=== PATIENT | female | born 1950 | race Caucasian/White ===

== ENCOUNTER 2021-06-23 15:29 | Inpatient (IN) | payer MEDICARE, BC ==
[~2021-06-23] VITALS: Ht 175.3 cm; Wt 104.6 kg
[2021-06-23] MEDS ORDERED: METHYL SALICYLATE/MENTHOL TOPICAL OINTMENT 57GM TUBE. TP PRN (16:30)
[2021-06-23] MEDS ORDERED: MAG HYDROX/AL HYDROX/SIMETH 30 ML ORAL.SUSP PO PRN (16:30)
[2021-06-23] MEDS ORDERED: MAGNESIUM HYDROXIDE 2,400 MG/30 ML ORAL.SUSP. PO PRN (16:30)
[2021-06-23] MEDS ORDERED: ACETAMINOPHEN 325 MG TABLET PO PRN (16:30)
[2021-06-23 16:37] VITALS: BP 98/58
[2021-06-23] MEDS ORDERED: APIX5TAB3 PO (16:54)
[2021-06-23] MEDS ORDERED: QUEtiapine 50 MG TABLET. PO PRN (17:00)
[2021-06-23] MEDS ORDERED: SODIUM CHLORIDE 0.65% NASAL SPRAY 45ML BOTTLE. NS PRN (17:00)
[2021-06-23] MEDS ORDERED: SENN8.6T99 PO (17:14)
[2021-06-23] MEDS ORDERED: ASPI-630 PO (17:14)
[2021-06-23] MEDS ORDERED: ARIP5TAB13 PO (17:14)
[2021-06-23] MEDS ORDERED: [UNRECOGNIZED DRUG - CODE] NS (17:14)
[2021-06-23] MEDS ORDERED: KETO5DRO72 EACHEYE (17:14)
[2021-06-23] MEDS ORDERED: LEVO25TA4 PO (17:14)
[2021-06-23] MEDS ORDERED: FLUT15.812 NS (17:14)
[2021-06-23] MEDS ORDERED: QUET50TA5 PO (17:14)
[2021-06-23] MEDS ORDERED: MECL-75 PO (17:14)
[2021-06-23] MEDS ORDERED: IPRA3AMP29 NEB (17:14)
[2021-06-23] MEDS ORDERED: POLY17PO52 PO (17:14)
[2021-06-23] MEDS ORDERED: METO-239 PO (17:14)
[2021-06-23] MEDS ORDERED: LIDO700A21 TP (17:14)
[2021-06-23] MEDS ORDERED: DIVA500T2 PO (17:14)
[2021-06-23] MEDS ORDERED: PANT40TA6 PO (17:14)
[2021-06-23] MEDS ORDERED: LACT10SO26 PO (17:14)
[2021-06-23] MEDS ORDERED: DULO60CA98 PO (17:14)
[2021-06-23] MEDS ORDERED: TRAZ-120 PO (17:14)
[2021-06-23] MEDS ORDERED: LORA10TA3 PO (17:14)
[2021-06-23] MEDS ORDERED: MECLIZINE 12.5 MG TABLET. PO PRN (17:45)
--- NOTE | 2021-06-23 18:06 | EKG ---
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
[2021-06-23] MEDS: APIXABAN 5 MG TABLET. PO SCH (20:35)
[2021-06-23] MEDS: traZODone 50 MG TABLET. PO SCH (20:35)
[2021-06-23] MEDS: DIVALPROEX SODIUM 250 MG TABLET.DR. PO SCH (20:35)
[2021-06-23] MEDS: LACTULOSE 20 GM/30 ML SOLUTION. PO SCH (20:35)
[2021-06-23] MEDS: PATCH REMOVAL. MC SCH (20:36)
[2021-06-23] MEDS: IPRATROPIUM/ALBUTEROL 20/100mcg/INH INHALER. INH SCH (20:37)
[2021-06-23 20:43] LABS: BASO # 0.1 x10^3/uL (0.0-0.2); BASO % 1 % (0-3); EOS # 0.3 x10^3/uL (0.0-0.7); EOS % 2 % (0-3); HEMATOCRIT 40.4 % (36.0-47.0); HEMOGLOBIN 13.8 g/dL (12.0-15.5); LYMPH # 3.6 x10^3/uL (1.0-4.8); LYMPH % 29 % (24-48); MEAN CORPUSCULAR HEMOGLOBIN 34 pg (25-35); MEAN CORPUSCULAR HGB CONC 34 g/dL (31-37); MEAN CORPUSCULAR VOLUME 99 fL (79-100); MONO # 0.9 x10^3/uL (0.0-1.1); MONO % 8 % (0-9); NEUT # 7.6 x10^3uL (1.8-7.7); NEUT % 61 % (31-73); PLATELET COUNT 319 x10^3/uL (140-400); RED BLOOD COUNT 4.08 x10^6/uL (3.50-5.40); RED CELL DISTRIBUTION WIDTH 14.7 % (11.5-14.5); WHITE BLOOD COUNT 12.5 x10^3/uL (4.0-11.0)
[2021-06-23 20:57] LABS: ALBUMIN/GLOBULIN RATIO 0.8 (1.0-1.7); ALK PHOS 102 U/L (46-116); ALT (SGPT) 14 U/L (14-59); ANION GAP 7 (6-14); AST (SGOT) 15 U/L (15-37); BLOOD UREA NITROGEN 33 mg/dL (7-20); BUN/CREATININE RATIO 47 (6-20); CALCIUM 8.7 mg/dL (8.5-10.1); CARBON DIOXIDE 29 mmol/L (21-32); CHLORIDE 103 mmol/L (98-107); CREATININE 0.7 mg/dL (0.6-1.0); GFR 82.5; GLUCOSE 167 mg/dL (70-99); MAGNESIUM 2.2 mg/dL (1.8-2.4); POTASSIUM 4.7 mmol/L (3.5-5.1); SODIUM 139 mmol/L (136-145); TOTAL BILIRUBIN 0.3 mg/dL (0.2-1.0); TOTAL PROTEIN 6.9 g/dL (6.4-8.2)
[2021-06-23] MEDS: KETOROLAC TROMETHAMINE 0.5% OPHTH SOLUTION BOTTLE. OU SCH (21:00)
[2021-06-23 21:09] LABS: VAL ACID 62 mcg/mL (50-100)
--- NOTE | 2021-06-23 21:54 | PDOC ---
Exam Note: Bharat Note: Please also refer to the separate dictated note~for this date of service dictated separately.~Patient seen individually. Discussed the patient with Nursing staff reviewed the chart.~Reviewed interim history and current functioning. Reviewed vital signs,~Labs/ Radiology~and current medications noted below. Continue current treatment with the changes noted in the dictated addendum note Assessment: Vital Signs/I&O: Vital Signs Date Time Temp Pulse Resp B/P (MAP) Pulse Ox O2 Delivery O2 Flow Rate FiO2 06/23/21 16:37 97.4 84 16 98/58 (71) 91 Room Air Labs: Laboratory Tests Test 06/23/21 20:30 White Blood Count 12.5 x10^3/uL (4.0-11.0) H Red Blood Count 4.08 x10^6/uL (3.50-5.40) Hemoglobin 13.8 g/dL (12.0-15.5) Hematocrit 40.4 % (36.0-47.0) Mean Corpuscular Volume 99 fL (79-100) Mean Corpuscular Hemoglobin 34 pg (25-35) Mean Corpuscular Hemoglobin Concent 34 g/dL (31-37) Red Cell Distribution Width 14.7 % (11.5-14.5) H Platelet Count 319 x10^3/uL (140-400) Neutrophils (%) (Auto) 61 % (31-73) Lymphocytes (%) (Auto) 29 % (24-48) Monocytes (%) (Auto) 8 % (0-9) Eosinophils (%) (Auto) 2 % (0-3) Basophils (%) (Auto) 1 % (0-3) Neutrophils # (Auto) 7.6 x10^3uL (1.8-7.7) Lymphocytes # (Auto) 3.6 x10^3/uL (1.0-4.8) Monocytes # (Auto) 0.9 x10^3/uL (0.0-1.1) Eosinophils # (Auto) 0.3 x10^3/uL (0.0-0.7) Basophils # (Auto) 0.1 x10^3/uL (0.0-0.2) D-Dimer (Carmen) 0.42 mg/L (0.00-0.50) Sodium Level 139 mmol/L (136-145) Potassium Level 4.7 mmol/L (3.5-5.1) Chloride Level 103 mmol/L (98-107) Carbon Dioxide Level 29 mmol/L (21-32) Anion Gap 7 (6-14) Blood Urea Nitrogen 33 mg/dL (7-20) H Creatinine 0.7 mg/dL (0.6-1.0) Estimated GFR (Cockcroft-Gault) 82.5 BUN/Creatinine Ratio 47 (6-20) H Glucose Level 167 mg/dL (70-99) H Calcium Level 8.7 mg/dL (8.5-10.1) Magnesium Level 2.2 mg/dL (1.8-2.4) Total Bilirubin 0.3 mg/dL (0.2-1.0) Aspartate Amino Transferase (AST) 15 U/L (15-37) Alanine Aminotransferase (ALT) 14 U/L (14-59) Alkaline Phosphatase 102 U/L (46-116) Total Protein 6.9 g/dL (6.4-8.2) Albumin 3.0 g/dL (3.4-5.0) L Albumin/Globulin Ratio 0.8 (1.0-1.7) L Valproic Acid Level 62 mcg/mL (50-100) Valproic Acid Last Dose Date 06/23/21 Valproic Acid Last Dose Time 0800 Current Medications: Meds: Current Medications Medications (Trade) Dose Ordered Sig/Anthony Route PRN Reason Start Time Stop Time Status Last Admin Dose Admin Apixaban (Eliquis) 5 mg BID PO 06/23/21 21:00 06/23/21 20:35 Albuterol/ Ipratropium (Combivent Respimat 20-100 Mcg) 1 puff RTQID INH 06/23/21 20:00 06/23/21 20:37 Trazodone HCl (Desyrel) 50 mg HS PO 06/23/21 21:00 06/23/21 20:35 Divalproex Sodium (Depakote) 1,000 mg BID PO 06/23/21 21:00 06/23/21 20:35 Lactulose (Lactulose) 30 gm BID PO 06/23/21 21:00 06/23/21 20:35 Miscellaneous (Lidoderm Patch Removal) 1 ea QHS 06/23/21 21:00 06/23/21 20:36 I have reviewed the current psychotropics carefully including drug interactions. Risk benefit ratio favors no change other than as noted in my dictated progress note. CORY MARAVILLA MD Jun 23, 2021 21:54
--- NOTE | 2021-06-23 22:55 | HP ---
ADMIT DATE: 06/23/2021 PSYCHIATRIC ADMISSION HISTORY/EVALUATION IDENTIFYING DATA: The patient is a 71-year-old female referred to us from [facility] after she was treated for her UTI and had been referred there from [facility] where she has resided for the past several months. She has been increasingly agitated, having visual hallucinations, marked insomnia, psychosis, anxiety, confused, refusing cares. She felt the hospital staff are trying to harm her. She failed outpatient psychiatric interventions resulting in this referral. CHIEF COMPLAINT: "I don't have bipolar disorder. I saw you many years ago. Were you at ." The patient is quite hyperverbal, anxious, quite adamant she does not have bipolar disorder. Unable to explain why she is on the Abilify. The patient does have a history of mood swings, even though she minimizes this, has some sleep and appetite changes, marked anxiety but denies suicidal or homicidal ideation. PAST PSYCHIATRIC HISTORY: As above. PAST MEDICAL HISTORY: Positive for astrocytoma of the brain, ischemic stroke, status post seizure disorder, status post pulmonary embolism, DVT, hypothyroidism, atrial fibrillation, chronic pain, on pain pump, diastolic heart failure, spondylosis, thoracic radiculopathy, pacemaker, history of brain tumor is noted. ACCU-CHEKS: None. CODE STATUS: Full code. ALLERGIES: TEGRETOL, LEXAPRO, PAXIL, DILANTIN, PRIMIDONE, ZOLOFT, ADHESIVE TAPE, ARIPIPRAZOLE, SOTALOL. DIET: Regular. ACTIVITY: Ambulates standby assist with walker. UA: On antibiotics for UTI, Keflex. CURRENT PSYCHOTROPICS: Cymbalta 90 mg a day, Seroquel 50 mg at bedtime p.r.n. Depakote delayed release 500 mg b.i.d., trazodone 50 mg at bedtime, Abilify 7.5 mg a day. Even though the ABILIFY IS LISTED AN ALLERGY, patient states the only side effect she had from the ABILIFY in the past was weight gain. FAMILY HISTORY: Noncontributory. SOCIAL HISTORY: The patient states she was living in an independent apartment until a few months back and then moved to the [facility]. No alcohol, drug abuse, physical, sexual or elder abuse history is noted. Not known to be a perpetrator. REACTION TO HOSPITALIZATION: The patient accepting of it. REVIEW OF SYSTEMS: Impaired ambulation with walker. No CV, , pulmonary, eye system symptoms on review. IMPRESSION: Probable bipolar 1 disorder, depressed versus mixed with psychotic features, history of major depressive disorder, anxiety disorder, unspecified. Rest as above. PLAN: Admit to Geropsychiatry unit at [facility]. I will see the patient daily individually from a psychiatric standpoint, medical followup, Dr. Goldstein/Dr. York. Continue current psychotropics. Observe baseline, adjust as clinically indicated. ESTIMATED LENGTH OF STAY: 10-12 days. DISPOSITION: Plan back to [facility] when stable. GISELLE/DARIAN DR: Simba TID: [id number]
[2021-06-24 05:43] VITALS: BP 94/61
[2021-06-24] MEDS: LEVOTHYROXINE 25 MCG TABLET. PO SCH (06:31)
[2021-06-24] MEDS: IPRATROPIUM/ALBUTEROL 20/100mcg/INH INHALER. INH SCH ×4 (08:00→20:44)
[2021-06-24] MEDS: LACTULOSE 20 GM/30 ML SOLUTION. PO SCH ×2 (09:00→20:44)
[2021-06-24] MEDS: SENNOSIDES 8.6 MG TABLET PO SCH (09:00)
[2021-06-24] MEDS ORDERED: FLU VACC QUAD 21-22 (6MOS+) PF 0.5 ML SYRINGE. VAX IM ONE (09:00)
[2021-06-24] MEDS: LIDOCAINE (700MG/PATCH) PATCH. TP SCH (09:00)
[2021-06-24] MEDS: METOPROLOL SUCC 24HR ER 25 MG TAB.ER.24H. PO SCH (09:00)
[2021-06-24] MEDS: POLYETHYLENE GLYCOL 3350 17 GM PACKET. PO SCH (09:00)
[2021-06-24] MEDS: ASPIRIN CHEWABLE 81 MG TABLET. PO SCH (09:01)
[2021-06-24] MEDS: ARIPiprazole 5 MG TABLET PO SCH (09:05)
[2021-06-24] MEDS: DULoxetine HCL 30 MG CAPSULE.DR PO SCH (09:06)
[2021-06-24] MEDS: APIXABAN 5 MG TABLET. PO SCH ×2 (09:07→20:45)
[2021-06-24] MEDS: PANTOPRAZOLE 40 MG TABLET. PO SCH (09:07)
[2021-06-24] MEDS: DIVALPROEX SODIUM 250 MG TABLET.DR. PO SCH ×2 (09:08→20:45)
[2021-06-24] MEDS: CETIRIZINE HCL 10 MG TABLET PO SCH (09:09)
[2021-06-24] MEDS: KETOROLAC TROMETHAMINE 0.5% OPHTH SOLUTION BOTTLE. OU SCH ×4 (09:09→20:44)
[2021-06-24] MEDS: FLUTICASONE 50MCG/NASAL SPRAY 16GM BOTTLE. NS SCH (09:10)
[2021-06-24 15:23] LABS: THYROID STIM HORMONE (TSH) 2.739 uIU/mL (0.358-3.740)
[2021-06-24 16:00] VITALS: BP 93/56
[2021-06-24 20:07] LABS: THYROXINE 6.2 ug/dL (4.5-12.0)
[2021-06-24] MEDS: PATCH REMOVAL. MC SCH (20:45)
[2021-06-24] MEDS: traZODone 50 MG TABLET. PO SCH (20:45)
--- NOTE | 2021-06-24 23:03 | PDOC ---
Exam Note: Bharat Note: This note covers elements not covered in my initial note. Subjective: The patient was seen individually in the evening of 06/24/2021 with Soraida QUARLES, discussed and reviewed the chart. The patient slept 7-1/2 hours previous night. She remains withdrawn to her room, refused her lactulose which was given for elevated ammonia level. She continues to deny she has been diagnosed with bipolar disorder. We will obtain past psychiatric records for clarification. She is compliant with medications. I met with her in her room. Review of Systems: Ambulation impaired with walker. No CV, , pulmonary, eye, ENT system symptoms on review. Mental Status Exam: The patient is reasonably oriented. Speech is coherent. Abstraction fair. Computation impaired. Language function intact. Attention span short. Mood and affect lability is improved. Laboratory Data: Reviewed. Impression: Bipolar 1 disorder mixed with psychotic features. Anxiety disorder unspecified. Impulse control disorder unspecified. Plan: Continue psychotropics unchanged. Check labs and ammonia level. Adjust further as clinically indicated. Assessment: Vital Signs/I&O: Vital Signs Date Time Temp Pulse Resp B/P (MAP) Pulse Ox O2 Delivery O2 Flow Rate FiO2 06/24/21 16:00 97.5 78 16 93/56 (68) 99 06/24/21 05:43 Nasal Cannula 2.0 I & O 06/23/21 06/23/21 06/24/21 15:00 23:00 07:00 Intake Total 610 ml Balance 610 ml Current Medications: Meds: Current Medications Medications (Trade) Dose Ordered Sig/Anthony Route PRN Reason Start Time Stop Time Status Last Admin Dose Admin Acetaminophen (Tylenol) 650 mg PRN Q6HRS PRN PO MILD PAIN / TEMP > 100.3'F 06/23/21 16:30 06/24/21 20:44 Multi-Ingredient Ointment (Analgesic [place]) 1 [place] PRN QID PRN TP MUSCLE PAIN 06/23/21 16:30 Al Hydroxide/Mg Hydroxide (Mylanta Plus Xs) 15 ml PRN AFTMEALHC PRN PO DYSPEPSIA 06/23/21 16:30 Magnesium Hydroxide (Milk Of Magnesia) 2,400 mg PRN QHS PRN PO CONSTIPATION 06/23/21 16:30 Apixaban (Eliquis) 5 mg BID PO 06/23/21 21:00 06/24/21 20:45 Aripiprazole (Abilify) 7.5 mg DAILY PO 06/24/21 09:00 06/24/21 09:05 Aspirin (Aspirin Chewable) 81 mg DAILY PO 06/24/21 09:00 06/24/21 09:01 Duloxetine HCl (Cymbalta) 90 mg DAILY PO 06/24/21 09:00 06/24/21 09:06 Albuterol/ Ipratropium (Combivent Respimat 20-100 Mcg) 1 puff RTQID INH 06/23/21 20:00 06/24/21 20:44 Levothyroxine Sodium (Synthroid) 25 mcg DAILY06 PO 06/24/21 06:00 06/24/21 06:31 Lidocaine (Lidoderm) 1 patch DAILY TP 06/24/21 09:00 06/24/21 09:00 Metoprolol Succinate (Toprol Xl) 25 mg DAILY PO 06/24/21 09:00 Pantoprazole Sodium (Protonix) 40 mg DAILY PO 06/24/21 09:00 06/24/21 09:07 Polyethylene Glycol (miraLAX) 17 gm DAILY PO 06/24/21 09:00 Quetiapine Fumarate (SEROquel) 50 mg PRN QHS PRN PO sleep 06/23/21 17:00 Sennosides (Senna) 8.6 mg DAILY PO 06/24/21 09:00 Sodium Chloride (Saline Mist Nasal) 1 r[place] PRN Q4HRS PRN NS nasal dryness 06/23/21 17:00 Trazodone HCl (Desyrel) 50 mg HS PO 06/23/21 21:00 06/24/21 20:45 Divalproex Sodium (Depakote) 1,000 mg BID PO 06/23/21 21:00 06/24/21 20:45 Fluticasone Propionate (Flonase) 2 spray DAILY NS 06/24/21 09:00 06/24/21 09:10 Ketorolac Tromethamine (Acular) 1 drop QID OU 06/23/21 21:00 06/24/21 20:44 Lactulose (Lactulose) 30 gm BID PO 06/23/21 21:00 06/24/21 20:44 Cetirizine HCl (ZyrTEC) 10 mg DAILY PO 06/24/21 09:00 06/24/21 09:09 Meclizine HCl (Antivert) 25 mg PRN Q4HRS PRN PO vertigo 06/23/21 17:45 Influenza Virus Vaccine Quadrival (Flulaval Quad Syringe) 0.5 ml ONCE ONCE VAX IM 06/24/21 09:00 06/24/21 09:01 DC 06/24/21 09:38 Miscellaneous (Lidoderm Patch Removal) 1 ea QHS MC 06/23/21 21:00 06/24/21 20:45 Current Medications Medications (Trade) Dose Ordered Sig/Anthony Route PRN Reason Start Time Stop Time Status Last Admin Dose Admin Aripiprazole (Abilify) 7.5 mg DAILY PO 06/24/21 09:00 06/24/21 09:05 Aspirin (Aspirin Chewable) 81 mg DAILY PO 06/24/21 09:00 06/24/21 09:01 Duloxetine HCl (Cymbalta) 90 mg DAILY PO 06/24/21 09:00 06/24/21 09:06 Levothyroxine Sodium (Synthroid) 25 mcg DAILY06 PO 06/24/21 06:00 06/24/21 06:31 Lidocaine (Lidoderm) 1 patch DAILY TP 06/24/21 09:00 06/24/21 09:00 Pantoprazole Sodium (Protonix) 40 mg DAILY PO 06/24/21 09:00 06/24/21 09:07 Fluticasone Propionate (Flonase) 2 spray DAILY NS 06/24/21 09:00 06/24/21 09:10 Cetirizine HCl (ZyrTEC) 10 mg DAILY PO 06/24/21 09:00 06/24/21 09:09 Influenza Virus Vaccine Quadrival (Flulaval Quad Syringe) 0.5 ml ONCE ONCE VAX IM 06/24/21 09:00 06/24/21 09:01 DC 06/24/21 09:38 I have reviewed the current psychotropics carefully including drug interactions. Risk benefit ratio favors no change other than as noted in my dictated progress note. Diagnosis: Problems: (1) Bipolar disorder, current episode mixed, severe, with psychotic features (2) Anxiety disorder, unspecified (3) Impulse control disorder, unspecified CORY MARAVILLA MD Jun 24, 2021 23:03
[2021-06-25 01:07] LABS: HEMOGLOBIN A1C 5.4 % (4.8-5.6)
--- NOTE | 2021-06-25 01:16 | CONS ---
DATE OF CONSULTATION: 06/24/2021 ATTENDING PHYSICIAN: Dr. Maravilla. We are asked to see this patient for medical consultation. HISTORY OF PRESENT ILLNESS: The patient is a pleasant 71-year-old female, admitted through the [facility] for worsening symptoms of bipolar disorder. She has been somewhat agitated, delusional, hallucinating, and having some psychosis. She is a little disoriented. She was refusing care at home. She was recently moved into an extended care facility. Her psychiatric history indicates that she had a hospitalization at [facility] as well over 40 years ago. PAST MEDICAL HISTORY: Significant for seizure disorder, hypothyroidism, paroxysmal atrial fibrillation, chronic anticoagulation, diastolic heart failure, and old cerebrovascular accident with minimal residual. CURRENT MEDICATIONS: Include albuterol, apixaban, Abilify, aspirin, Depakote, Cymbalta, fluticasone, ketorolac, lactulose, levothyroxine, Lidoderm patch, loratadine, meclizine, metoprolol, Protonix, MiraLax, Seroquel, senna, sodium, and trazodone. ALLERGIES: She has multiple allergies including ABILIFY, TEGRETOL, LEXAPRO, PAROXETINE, DILANTIN, PRIMIDONE, ZOLOFT AND BETAPACE, exact reaction is unclear. FAMILY HISTORY: Noncontributory. REVIEW OF SYSTEMS: Significant for the behavioral issues. She has had some impulse control. She was very alert and pleasant. All other systems reviewed and turned to be negative. SOCIAL HISTORY: Nonsmoker, nondrinker. 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 PHYSICAL EXAMINATION: GENERAL: When I saw her, this is a pleasant, middle-aged female. VITAL SIGNS: Her initial vital signs showed a blood pressure 94/61, pulse was 76 and regular. She was afebrile, oxygen saturation 91% on room air. HEENT: Head is without trauma. Pupils are reactive. Sclerae nonicteric. Oropharynx is clear. NECK: Supple, no bruits. LUNGS: Clear to auscultation. CARDIOVASCULAR: Regular heart tones. No gallops. ABDOMEN: Soft, obese, protuberant. No organomegaly. Bowel sounds are normoactive. EXTREMITIES: Show trace edema. NEUROLOGIC: Focally intact. Speech is fluent. Affect is normal. PERTINENT LABORATORY STUDIES: Her hemoglobin on admission was 13.8 grams per deciliter with a white count of 12,500. Electrolytes within normal range. Creatinine 0.7 mg/dL. Nonfasting blood sugar 167. ASSESSMENT: 1. A 71-year-old female with bipolar disorder. 2. Paroxysmal atrial fibrillation. 3. Chronic anticoagulation. 4. Hypothyroidism. 5. History remotely of congestive heart failure. 6. History of stroke with minimal residual. RECOMMENDATIONS: 1. I reviewed her medicines and should be continued the same dose. 2. The patient is stable from a medical standpoint at this time. Thank you again for asking me to see the patient for consultation. We should gladly follow along closely during her inpatient stay. JOHN DR: Farhad TID: [id number] CC: CORY MARAVILLA MD
[2021-06-25] MEDS: LEVOTHYROXINE 25 MCG TABLET. PO SCH (06:00)
[2021-06-25 06:44] VITALS: BP 161/91
[2021-06-25] MEDS: IPRATROPIUM/ALBUTEROL 20/100mcg/INH INHALER. INH SCH ×4 (08:00→21:29)
[2021-06-25] MEDS: LACTULOSE 20 GM/30 ML SOLUTION. PO SCH (08:42)
[2021-06-25] MEDS: FLUTICASONE 50MCG/NASAL SPRAY 16GM BOTTLE. NS SCH (08:42)
[2021-06-25] MEDS: PANTOPRAZOLE 40 MG TABLET. PO SCH (08:43)
[2021-06-25] MEDS: ASPIRIN CHEWABLE 81 MG TABLET. PO SCH (08:43)
[2021-06-25] MEDS: CETIRIZINE HCL 10 MG TABLET PO SCH (08:43)
[2021-06-25] MEDS: SENNOSIDES 8.6 MG TABLET PO SCH (08:43)
[2021-06-25] MEDS: DULoxetine HCL 30 MG CAPSULE.DR PO SCH (08:43)
[2021-06-25] MEDS: METOPROLOL SUCC 24HR ER 25 MG TAB.ER.24H. PO SCH (08:44)
[2021-06-25] MEDS: ARIPiprazole 5 MG TABLET PO SCH (08:44)
[2021-06-25] MEDS: APIXABAN 5 MG TABLET. PO SCH ×2 (08:44→21:28)
[2021-06-25] MEDS: LIDOCAINE (700MG/PATCH) PATCH. TP SCH (08:45)
[2021-06-25] MEDS: KETOROLAC TROMETHAMINE 0.5% OPHTH SOLUTION BOTTLE. OU SCH ×4 (08:45→21:28)
[2021-06-25] MEDS: POLYETHYLENE GLYCOL 3350 17 GM PACKET. PO SCH (08:46)
[2021-06-25] MEDS: DIVALPROEX SODIUM 250 MG TABLET.DR. PO SCH ×2 (08:49→21:28)
--- NOTE | 2021-06-25 12:16 | TX PLAN ---
Interdisciplinary Tx Plan Admission Information Jun 23, 2021 at 15:49 Legal Status (on Admission): Voluntary DPOA/Guardian Name: Johanny Gonzalez Contact Other Contact Name: IVELISSE Richter Other Contact Verified Code Status: Full Code Allergies: Coded Allergies: adhesive tape (Verified Allergy, Severe, 06/23/21) aripiprazole (Verified Allergy, Mild, 06/23/21) weight gain sotalol (Verified Allergy, Mild, Diarrhea, 06/23/21) carbamazepine (Verified Allergy, Unknown, 06/23/21) escitalopram (Verified Allergy, Unknown, 06/23/21) paroxetine (Verified Allergy, Unknown, 06/23/21) phenytoin (Verified Allergy, Unknown, 06/23/21) primidone (Verified Allergy, Unknown, 06/23/21) sertraline (Verified Allergy, Unknown, 06/23/21) Diagnoses Primary Diagnosis: (1) Bipolar disorder, current episode mixed, severe, with psychotic features (2) Anxiety disorder, unspecified (3) Impulse control disorder, unspecified Reasons for Admission: Delusions, Agitated, Sig. Change Sleep, Anxiety/Panic, Hallucinations, Suspicious/paranoid, Confusion/Disoriented Problem in Patient's Words: Per pt she has a history of chroinc pain related to a previous brain tumor. She has a pain pump that she wonders if she had previously been given the proper dose of pain medications as she has often felt like she was in a fog and didn't know where she was at. Pt and Victorina MENDOZA,have discussed concerns with ammonia levels. Additional Admission Comments: Per intake record, pt showing agitation, anxiety, confusion/disorientation, psychosis, delusions of staff trying to kill her, hallucinations of seeing bodies, and refusing cares. Problems Active Problems: Confusion, feels like in a fog, anxiety Inactive Problems: Pt is not currently describing hallucinations, delusions, or paranoia. However, these symptoms will continue to be assessed and monitored. Pt has not, yet, displayed agitation, but this, too, will be assessed and monitored. Pt Strengths/Limitations Ability for [place]: Poor Cognitive Functioning/Ability: Fair Communication Skills/Ability: Good Financial Resources: Good Insight/Judgement: Fair Intellectual Ability: Good Physical Health: Poor Social Skills: Fair Stability in Family: Fair Stability in School/Work: Good Verbal Skills: Good Discharge Criteria Discharge Criteria: No need for close observ., OP monitor medical prob, Adequate arrangements @DC, Adequate self-care, Verbal commit med comply, Improved behavior, Improved mood/thought Other Discharge Comments: None at this time. Preliminary Discharge Plan Preliminary DC Plan: Current Living Arrange. 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 Initial D/C Plan Pt plan is to return to [facility] once stable. Identified Discharge Needs: None known at this time. Currently Utilized Resources Currently Utilized Resources/P: PCP through [facility]-Dr. Sabino WILSON-Victorina Gonzalez Referrals Community Resources: None at this time. Identified Problems/Hx/Goals Objectives/Short-Term Goals Short Term Goals: Control abnormal behavior, Dec. Anxiety/Panic, Dec. Hallucination/Delus, Dec. Symp. Depression, Medication Stabilization, Monitor Med Effects, Prevent Deterioration, Promote Coping Skill Short Term Goals in Patient's: Would like to feel less confused and like I'm in a fog. Also, would like to be able to enjoy some of the things I used to do. Interventions/Frequency Staff Interventions/Frequency&: Psychiatry to assess pt three times per week for medication management. Nursing to assess behaviors, monitor medications, and complete 15 minute checks daily. Social work to see pt at least two times weekly to aid in return to placement. Activities to encourage pt to participate in group activities daily. 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 Pt states that she had, also, taught at [employer], [employer], and [employer]. Education: Pt graduated high school from [employer] and later graduated college from [employer] with her master's in education. She, also, had previously attended various colleges before graduating from . Community Follow-up PCP Community Provider/Family Inpu: Pt REJI/JOANA, Victorina, participated in treatment team and is aware of pt hospitalization. Victorina is available for further information as needed. 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
[2021-06-25] MEDS: CEPHALEXIN 250 MG CAPSULE PO SCH ×2 (14:19→21:28)
[2021-06-25 15:57] VITALS: BP 84/53
[2021-06-25] MEDS: PATCH REMOVAL. MC SCH (21:00)
[2021-06-25] MEDS: traZODone 50 MG TABLET. PO SCH (21:28)
--- NOTE | 2021-06-25 22:00 | PDOC ---
Exam Note: Bharat Note: Please also refer to the separate dictated note~for this date of service dictated separately.~Patient seen individually. Discussed the patient with Nursing staff reviewed the chart.~Reviewed interim history and current functioning. Reviewed vital signs,~Labs/ Radiology~and current medications noted below. Continue current treatment with the changes noted in the dictated addendum note Assessment: Vital Signs/I&O: Vital Signs Date Time Temp Pulse Resp B/P (MAP) Pulse Ox O2 Delivery O2 Flow Rate FiO2 06/25/21 15:57 98.0 80 20 84/53 (63) 100 2.0 06/25/21 06:44 Room Air I & O 06/24/21 06/24/21 06/25/21 15:00 23:00 07:00 Intake Total 720 ml 120 ml 120 ml Balance 720 ml 120 ml 120 ml Labs: Laboratory Tests Test 06/25/21 10:30 Ammonia 14 mcmol/L (11-34) Current Medications: Meds: Laboratory Tests Test 06/25/21 10:30 Ammonia 14 mcmol/L Current Medications Medications (Trade) Dose Ordered Sig/Anthony Route PRN Reason Start Time Stop Time Status Last Admin Dose Admin Acetaminophen (Tylenol) 650 mg PRN Q6HRS PRN PO MILD PAIN / TEMP > 100.3'F 06/23/21 16:30 06/24/21 20:44 Multi-Ingredient Ointment (Analgesic [place]) 1 raleigh PRN QID PRN TP MUSCLE PAIN 06/23/21 16:30 Al Hydroxide/Mg Hydroxide (Mylanta Plus Xs) 15 ml PRN AFTMEALHC PRN PO DYSPEPSIA 06/23/21 16:30 Magnesium Hydroxide (Milk Of Magnesia) 2,400 mg PRN QHS PRN PO CONSTIPATION 06/23/21 16:30 Apixaban (Eliquis) 5 mg BID PO 06/23/21 21:00 06/25/21 21:28 Aripiprazole (Abilify) 7.5 mg DAILY PO 06/24/21 09:00 06/25/21 08:44 Aspirin (Aspirin Chewable) 81 mg DAILY PO 06/24/21 09:00 06/25/21 08:43 Duloxetine HCl (Cymbalta) 90 mg DAILY PO 06/24/21 09:00 06/25/21 08:43 Albuterol/ Ipratropium (Combivent Respimat 20-100 Mcg) 1 puff RTQID INH 06/23/21 20:00 06/25/21 21:29 Levothyroxine Sodium (Synthroid) 25 mcg DAILY06 PO 06/24/21 06:00 06/25/21 06:00 Lidocaine (Lidoderm) 1 patch DAILY TP 06/24/21 09:00 06/25/21 08:45 Metoprolol Succinate (Toprol Xl) 25 mg DAILY PO 06/24/21 09:00 06/25/21 08:44 Pantoprazole Sodium (Protonix) 40 mg DAILY PO 06/24/21 09:00 06/25/21 08:43 Polyethylene Glycol (miraLAX) 17 gm DAILY PO 06/24/21 09:00 Quetiapine Fumarate (SEROquel) 50 mg PRN QHS PRN PO sleep 06/23/21 17:00 Sennosides (Senna) 8.6 mg DAILY PO 06/24/21 09:00 06/25/21 08:43 Sodium Chloride (Saline Mist Nasal) 1 raleigh PRN Q4HRS PRN NS nasal dryness 06/23/21 17:00 Trazodone HCl (Desyrel) 50 mg HS PO 06/23/21 21:00 06/25/21 21:28 Divalproex Sodium (Depakote) 1,000 mg BID PO 06/23/21 21:00 06/25/21 21:28 Fluticasone Propionate (Flonase) 2 spray DAILY NS 06/24/21 09:00 06/25/21 08:42 Ketorolac Tromethamine (Acular) 1 drop QID OU 06/23/21 21:00 06/25/21 21:28 Lactulose (Lactulose) 30 gm BID PO 06/23/21 21:00 06/25/21 11:41 DC 06/25/21 08:42 Cetirizine HCl (ZyrTEC) 10 mg DAILY PO 06/24/21 09:00 06/25/21 08:43 Meclizine HCl (Antivert) 25 mg PRN Q4HRS PRN PO vertigo 06/23/21 17:45 Influenza Virus Vaccine Quadrival (Flulaval Quad Syringe) 0.5 ml ONCE ONCE VAX IM 06/24/21 09:00 06/24/21 09:01 DC 06/24/21 09:38 Miscellaneous (Lidoderm Patch Removal) 1 ea QHS 06/23/21 21:00 06/25/21 21:00 Cephalexin HCl (Keflex) 500 mg TID PO 06/25/21 14:00 06/30/21 10:00 06/25/21 21:28 Current Medications Medications (Trade) Dose Ordered Sig/Anthony Route PRN Reason Start Time Stop Time Status Last Admin Dose Admin Cephalexin HCl (Keflex) 500 mg TID PO 06/25/21 14:00 06/30/21 10:00 06/25/21 21:28 I have reviewed the current psychotropics carefully including drug interactions. Risk benefit ratio favors no change other than as noted in my dictated progress note. Diagnosis: Problems: (1) Impulse control disorder, unspecified (2) Anxiety disorder, unspecified (3) Bipolar disorder, current episode mixed, severe, with psychotic features CORY MARAVILLA MD Jun 25, 2021 22:00
[2021-06-26 06:00] VITALS: BP 94/63
[2021-06-26] MEDS: LEVOTHYROXINE 25 MCG TABLET. PO SCH (06:00)
[2021-06-26] MEDS: IPRATROPIUM/ALBUTEROL 20/100mcg/INH INHALER. INH SCH ×5 (08:00→20:24)
[2021-06-26] MEDS: FLUTICASONE 50MCG/NASAL SPRAY 16GM BOTTLE. NS SCH (08:18)
[2021-06-26] MEDS: LIDOCAINE (700MG/PATCH) PATCH. TP SCH (08:18)
[2021-06-26] MEDS: KETOROLAC TROMETHAMINE 0.5% OPHTH SOLUTION BOTTLE. OU SCH ×4 (08:18→20:25)
[2021-06-26] MEDS: DULoxetine HCL 30 MG CAPSULE.DR PO SCH (08:19)
[2021-06-26] MEDS: SENNOSIDES 8.6 MG TABLET PO SCH (08:19)
[2021-06-26] MEDS: ARIPiprazole 5 MG TABLET PO SCH (08:19)
[2021-06-26] MEDS: CETIRIZINE HCL 10 MG TABLET PO SCH (08:20)
[2021-06-26] MEDS: ASPIRIN CHEWABLE 81 MG TABLET. PO SCH (08:20)
[2021-06-26] MEDS: METOPROLOL SUCC 24HR ER 25 MG TAB.ER.24H. PO SCH (08:20)
[2021-06-26] MEDS: PANTOPRAZOLE 40 MG TABLET. PO SCH (08:20)
[2021-06-26] MEDS: CEPHALEXIN 250 MG CAPSULE PO SCH ×3 (08:20→20:26)
[2021-06-26] MEDS: DIVALPROEX SODIUM 250 MG TABLET.DR. PO SCH ×2 (08:21→20:26)
[2021-06-26] MEDS: POLYETHYLENE GLYCOL 3350 17 GM PACKET. PO SCH (08:21)
[2021-06-26] MEDS: APIXABAN 5 MG TABLET. PO SCH ×2 (08:21→20:25)
[2021-06-26 15:36] VITALS: BP 90/62
[2021-06-26] MEDS: traZODone 50 MG TABLET. PO SCH (20:25)
[2021-06-26] MEDS: PATCH REMOVAL. MC SCH (20:27)
--- NOTE | 2021-06-27 05:18 | PN ---
DATE: 06/25/2021 PSYCHIATRIC PROGRESS NOTE This is a late entry, date of service 06/25 covers elements not covered in my initial note of 06/25. I met with the patient individually in her room in the evening at some length and had treatment team meeting with entire team in the morning. Per Amita RN, appetite 100% sleeping 6 hours. Sri, aids social worker give a detailed history. HISTORY OF PRESENT ILLNESS: She has been followed by Dr. Reid, Psychiatry in the past with a diagnosis of major depressive disorder, but no established diagnosis of bipolar disorder. Reportedly, she gets depressed and gets suicidal occasionally, and had been quite psychotic recently with a history of hallucinations of being raped and calling the police. She does have chronic pain 5 on a scale of 0-10 in her neck and arm and has a pain pump. REVIEW OF SYSTEMS: Ambulation impaired with walker. Chronic pain. No CV, , pulmonary, eye system symptoms on review. MENTAL STATUS EXAM: Oriented reasonably. Speech is coherent. Abstraction fair. Computation impaired. Language function intact. Mood and affect, lability is improved. Still remains depressed. At the treatment team meeting, the patient's [id number] Victorina attended and gave a very comprehensive history. IMPRESSION: Major depressive disorder, recurrent. Anxiety disorder, unspecified. Rest unchanged from admission. PLAN: Continue current psychotropics. Observe baseline. Maintain Cymbalta 90 mg a day, Depakote for seizure prophylaxis, delayed release 500 mg b.i.d., trazodone 50 mg at bedtime, Abilify 7.5 mg a day. GISELLE DR: Simba TID: [id number]
[2021-06-27] MEDS: LEVOTHYROXINE 25 MCG TABLET. PO SCH (05:47)
[2021-06-27 06:27] VITALS: BP 93/61
[2021-06-27] MEDS: IPRATROPIUM/ALBUTEROL 20/100mcg/INH INHALER. INH SCH ×4 (08:00→20:00)
--- NOTE | 2021-06-27 08:45 | PDOC ---
Exam Note: Bharat Note: Late entry for 06/26/2021. Please also refer to the separate dictated note~for this date of service dictated separately.~Patient seen individually. Discussed the patient with Nursing staff reviewed the chart.~Reviewed interim history and current functioning. Reviewed vital signs,~Labs/ Radiology~and current medic ations noted below. Continue current treatment with the changes noted in the dictated addendum note Assessment: Vital Signs/I&O: Vital Signs Date Time Temp Pulse Resp B/P (MAP) Pulse Ox O2 Delivery O2 Flow Rate FiO2 06/27/21 06:27 97.8 74 18 93/61 (72) 94 2.0 06/25/21 06:44 Room Air I & O 06/26/21 06/26/21 06/27/21 15:00 23:00 07:00 Intake Total 720 ml 610 ml Balance 720 ml 610 ml Current Medications: I have reviewed the current psychotropics carefully including drug interactions. Risk benefit ratio favors no change other than as noted in my dictated progress note. Diagnosis: Problems: (1) Impulse control disorder, unspecified (2) Anxiety disorder, unspecified (3) Bipolar disorder, current episode mixed, severe, with psychotic features CORY MARAVILLA MD Jun 27, 2021 08:45
[2021-06-27] MEDS: POLYETHYLENE GLYCOL 3350 17 GM PACKET. PO SCH (09:00)
[2021-06-27] MEDS: METOPROLOL SUCC 24HR ER 25 MG TAB.ER.24H. PO SCH (09:00)
[2021-06-27] MEDS: PANTOPRAZOLE 40 MG TABLET. PO SCH (09:13)
[2021-06-27] MEDS: DULoxetine HCL 30 MG CAPSULE.DR PO SCH (09:13)
[2021-06-27] MEDS: APIXABAN 5 MG TABLET. PO SCH ×2 (09:13→20:59)
[2021-06-27] MEDS: CETIRIZINE HCL 10 MG TABLET PO SCH (09:13)
[2021-06-27] MEDS: DIVALPROEX SODIUM 250 MG TABLET.DR. PO SCH ×2 (09:14→20:59)
[2021-06-27] MEDS: CEPHALEXIN 250 MG CAPSULE PO SCH ×3 (09:14→20:59)
[2021-06-27] MEDS: ASPIRIN CHEWABLE 81 MG TABLET. PO SCH (09:14)
[2021-06-27] MEDS: ARIPiprazole 5 MG TABLET PO SCH (09:14)
[2021-06-27] MEDS: SENNOSIDES 8.6 MG TABLET PO SCH (09:14)
[2021-06-27] MEDS: KETOROLAC TROMETHAMINE 0.5% OPHTH SOLUTION BOTTLE. OU SCH ×4 (09:16→20:59)
[2021-06-27] MEDS: FLUTICASONE 50MCG/NASAL SPRAY 16GM BOTTLE. NS SCH (09:16)
[2021-06-27] MEDS: LIDOCAINE (700MG/PATCH) PATCH. TP SCH (09:17)
[2021-06-27 16:00] VITALS: BP 104/64
[2021-06-27] MEDS: PATCH REMOVAL. MC SCH (20:01)
[2021-06-27] MEDS: traZODone 50 MG TABLET. PO SCH (20:58)
--- NOTE | 2021-06-27 21:28 | PDOC ---
Exam Note: Bharat Note: Please also refer to the separate dictated note~for this date of service dictated separately.~Patient seen individually. Discussed the patient with Nursing staff reviewed the chart.~Reviewed interim history and current functioning. Reviewed vital signs,~Labs/ Radiology~and current medications noted below. Continue current treatment with the changes noted in the dictated addendum note Assessment: Vital Signs/I&O: Vital Signs Date Time Temp Pulse Resp B/P (MAP) Pulse Ox O2 Delivery O2 Flow Rate FiO2 06/27/21 16:00 97.8 81 104/64 (77) 97 Room Air 06/27/21 06:27 18 2.0 I & O 06/26/21 06/26/21 06/27/21 15:00 23:00 07:00 Intake Total 720 ml 610 ml Balance 720 ml 610 ml Current Medications: Meds: Current Medications Medications (Trade) Dose Ordered Sig/Anthony Route PRN Reason Start Time Stop Time Status Last Admin Dose Admin Acetaminophen (Tylenol) 650 mg PRN Q6HRS PRN PO MILD PAIN / TEMP > 100.3'F 06/23/21 16:30 06/24/21 20:44 Multi-Ingredient Ointment (Analgesic [place]) 1 [place] PRN QID PRN TP MUSCLE PAIN 06/23/21 16:30 Al Hydroxide/Mg Hydroxide (Mylanta Plus Xs) 15 ml PRN AFTMEALHC PRN PO DYSPEPSIA 06/23/21 16:30 Magnesium Hydroxide (Milk Of Magnesia) 2,400 mg PRN QHS PRN PO CONSTIPATION 06/23/21 16:30 Apixaban (Eliquis) 5 mg BID PO 06/23/21 21:00 06/27/21 20:59 Aripiprazole (Abilify) 7.5 mg DAILY PO 06/24/21 09:00 06/27/21 09:14 Aspirin (Aspirin Chewable) 81 mg DAILY PO 06/24/21 09:00 06/27/21 09:14 Duloxetine HCl (Cymbalta) 90 mg DAILY PO 06/24/21 09:00 06/27/21 09:13 Albuterol/ Ipratropium (Combivent Respimat 20-100 Mcg) 1 puff RTQID INH 06/23/21 20:00 06/25/21 21:29 Levothyroxine Sodium (Synthroid) 25 mcg DAILY06 PO 06/24/21 06:00 06/27/21 05:47 Lidocaine (Lidoderm) 1 patch DAILY TP 06/24/21 09:00 06/27/21 09:17 Metoprolol Succinate (Toprol Xl) 25 mg DAILY PO 06/24/21 09:00 06/25/21 08:44 Pantoprazole Sodium (Protonix) 40 mg DAILY PO 06/24/21 09:00 06/27/21 09:13 Polyethylene Glycol (miraLAX) 17 gm DAILY PO 06/24/21 09:00 Quetiapine Fumarate (SEROquel) 50 mg PRN QHS PRN PO sleep 06/23/21 17:00 Sennosides (Senna) 8.6 mg DAILY PO 06/24/21 09:00 06/27/21 09:14 Sodium Chloride (Saline Mist Nasal) 1 [place] PRN Q4HRS PRN NS nasal dryness 06/23/21 17:00 Trazodone HCl (Desyrel) 50 mg HS PO 06/23/21 21:00 06/27/21 20:58 Divalproex Sodium (Depakote) 1,000 mg BID PO 06/23/21 21:00 06/27/21 20:59 Fluticasone Propionate (Flonase) 2 spray DAILY NS 06/24/21 09:00 06/27/21 09:16 Ketorolac Tromethamine (Acular) 1 drop QID OU 06/23/21 21:00 06/27/21 20:59 Lactulose (Lactulose) 30 gm BID PO 06/23/21 21:00 06/25/21 11:41 DC 06/25/21 08:42 Cetirizine HCl (ZyrTEC) 10 mg DAILY PO 06/24/21 09:00 06/27/21 09:13 Meclizine HCl (Antivert) 25 mg PRN Q4HRS PRN PO vertigo 06/23/21 17:45 Influenza Virus Vaccine Quadrival (Flulaval Quad [id number] Syringe) 0.5 ml ONCE ONCE VAX IM 06/24/21 09:00 06/24/21 09:01 DC 06/24/21 09:38 Miscellaneous (Lidoderm Patch Removal) 1 ea QHS MC 06/23/21 21:00 10/16/21 20:01 Cephalexin HCl (Keflex) 500 mg TID PO 06/25/21 14:00 06/30/21 10:00 06/27/21 20:59 I have reviewed the current psychotropics carefully including drug interactions. Risk benefit ratio favors no change other than as noted in my dictated progress note. Diagnosis: Problems: (1) Impulse control disorder, unspecified (2) Anxiety disorder, unspecified (3) Bipolar disorder, current episode mixed, severe, with psychotic features CORY MARAVILLA MD Jun 27, 2021 21:28
--- NOTE | 2021-06-27 21:43 | PN ---
DATE: 06/26/2021 PSYCHIATRIC PROGRESS NOTE This late entry 06/26/2021 covers elements not covered in the initial note. Discussed with WILLAM Levi SUBJECTIVE: The patient slept 5 hours previous night. She spends much time in her room, reading a book. No active hallucinations noted. I have reviewed records from Dr. Maddox, outpatient psychiatrist with a diagnosis of major depressive disorder and I discussed this with the patient at some length. REVIEW OF SYSTEMS: Ambulation impaired with walker. No CV, , pulmonary, eye system symptoms on review. MENTAL STATUS EXAMINATION: Oriented reasonably. Speech is coherent, has some latency. Abstraction fair. Computation impaired. Language function intact. Mood and affect somewhat anxious, depressed. No suicidal ideation. LABORATORY DATA: Reviewed. IMPRESSION: Major depressive disorder with history of psychotic features; anxiety disorder, unspecified urinary tract infection. PLAN: Continue current psychotropics including Cymbalta, Seroquel, Depakote and Abilify. The Depakote is for her seizure disorder. We will adjust further as clinically indicated. ALVIN DR: Simba TID: [id number]
[2021-06-28] MEDS: LEVOTHYROXINE 25 MCG TABLET. PO SCH (05:09)
[2021-06-28 06:14] VITALS: BP 96/63
[2021-06-28] MEDS: IPRATROPIUM/ALBUTEROL 20/100mcg/INH INHALER. INH SCH ×4 (08:57→21:18)
[2021-06-28] MEDS: LIDOCAINE (700MG/PATCH) PATCH. TP SCH (08:58)
[2021-06-28] MEDS: KETOROLAC TROMETHAMINE 0.5% OPHTH SOLUTION BOTTLE. OU SCH ×4 (08:58→21:18)
[2021-06-28] MEDS: FLUTICASONE 50MCG/NASAL SPRAY 16GM BOTTLE. NS SCH (08:59)
[2021-06-28] MEDS: APIXABAN 5 MG TABLET. PO SCH ×2 (09:00→21:19)
[2021-06-28] MEDS: DULoxetine HCL 30 MG CAPSULE.DR PO SCH (09:00)
[2021-06-28] MEDS: SENNOSIDES 8.6 MG TABLET PO SCH (09:00)
[2021-06-28] MEDS: POLYETHYLENE GLYCOL 3350 17 GM PACKET. PO SCH (09:00)
[2021-06-28] MEDS: METOPROLOL SUCC 24HR ER 25 MG TAB.ER.24H. PO SCH (09:00)
[2021-06-28] MEDS: CETIRIZINE HCL 10 MG TABLET PO SCH (09:01)
[2021-06-28] MEDS: PANTOPRAZOLE 40 MG TABLET. PO SCH (09:01)
[2021-06-28] MEDS: ASPIRIN CHEWABLE 81 MG TABLET. PO SCH (09:02)
[2021-06-28] MEDS: ARIPiprazole 5 MG TABLET PO SCH (09:02)
[2021-06-28] MEDS: DIVALPROEX SODIUM 250 MG TABLET.DR. PO SCH ×2 (09:02→21:00)
[2021-06-28] MEDS: CEPHALEXIN 250 MG CAPSULE PO SCH ×3 (09:02→21:19)
--- NOTE | 2021-06-28 11:36 | PN ---
DATE: 06/27/2021 PSYCHIATRIC PROGRESS NOTE This late entry of 06/27 covers elements not covered in my initial note. SUBJECTIVE: I met with the patient in her room in the evening. Per WILLAM Mcgraw, she slept 7 hours previous night. She has done well during the day. No hallucinations noted. Alert, oriented x 4. Reading a book in her room. I met with her in her room. REVIEW OF SYSTEMS: Ambulation impaired with walker. No CV, , pulmonary, eye, ENT system symptoms on review. Reliability fair. MENTAL STATUS EXAMINATION: Oriented reasonably. Speech coherent. Abstraction fair. Computation impaired. Language function intact. Mood and affect is improved. I have reviewed fairly extensive records from Dr. Reid, her outpatient psychiatrist with a diagnosis of major depressive disorder. No evidence of bipolar disorder. IMPRESSION: Major depressive disorder, recurrent, in partial remission; anxiety disorder, unspecified. Rest unchanged. PLAN: Continue current psychotropics mentioned in my initial note including Cymbalta, Depakote, trazodone, Abilify. Adjust further as clinically indicated. ERNIE DR: Simba TID: [id number]
[2021-06-28 15:38] VITALS: BP 92/60
[2021-06-28] MEDS: PATCH REMOVAL. MC SCH (20:28)
[2021-06-28] MEDS: traZODone 50 MG TABLET. PO SCH (21:00)
--- NOTE | 2021-06-28 21:33 | PDOC ---
Exam Note: Bharat Note: Please also refer to the separate dictated note~for this date of service dictated separately.~Patient seen individually. Discussed the patient with Nursing staff reviewed the chart.~Reviewed interim history and current functioning. Reviewed vital signs,~Labs/ Radiology~and current medications noted below. Continue current treatment with the changes noted in the dictated addendum note Assessment: Vital Signs/I&O: Vital Signs Date Time Temp Pulse Resp B/P (MAP) Pulse Ox O2 Delivery O2 Flow Rate FiO2 06/28/21 15:38 97.9 88 20 92/60 (71) 99 Room Air 06/28/21 06:14 2.0 I & O 06/27/21 06/27/21 06/28/21 15:00 23:00 07:00 Intake Total 720 ml 600 ml Balance 720 ml 600 ml Current Medications: Meds: Current Medications Medications (Trade) Dose Ordered Sig/Anthony Route PRN Reason Start Time Stop Time Status Last Admin Dose Admin Acetaminophen (Tylenol) 650 mg PRN Q6HRS PRN PO MILD PAIN / TEMP > 100.3'F 06/23/21 16:30 06/24/21 20:44 Multi-Ingredient Ointment (Analgesic [place]) 1 [place] PRN QID PRN TP MUSCLE PAIN 06/23/21 16:30 Al Hydroxide/Mg Hydroxide (Mylanta Plus Xs) 15 ml PRN AFTMEALHC PRN PO DYSPEPSIA 06/23/21 16:30 Magnesium Hydroxide (Milk Of Magnesia) 2,400 mg PRN QHS PRN PO CONSTIPATION 06/23/21 16:30 Apixaban (Eliquis) 5 mg BID PO 06/23/21 21:00 06/28/21 21:19 Aripiprazole (Abilify) 7.5 mg DAILY PO 06/24/21 09:00 06/28/21 09:02 Aspirin (Aspirin Chewable) 81 mg DAILY PO 06/24/21 09:00 06/28/21 09:02 Duloxetine HCl (Cymbalta) 90 mg DAILY PO 06/24/21 09:00 06/28/21 09:00 Albuterol/ Ipratropium (Combivent Respimat 20-100 Mcg) 1 puff RTQID INH 06/23/21 20:00 06/28/21 21:18 Levothyroxine Sodium (Synthroid) 25 mcg DAILY06 PO 06/24/21 06:00 06/28/21 05:09 Lidocaine (Lidoderm) 1 patch DAILY TP 06/24/21 09:00 06/28/21 08:58 Metoprolol Succinate (Toprol Xl) 25 mg DAILY PO 06/24/21 09:00 06/25/21 08:44 Pantoprazole Sodium (Protonix) 40 mg DAILY PO 06/24/21 09:00 06/28/21 09:01 Polyethylene Glycol (miraLAX) 17 gm DAILY PO 06/24/21 09:00 Quetiapine Fumarate (SEROquel) 50 mg PRN QHS PRN PO sleep 06/23/21 17:00 Sennosides (Senna) 8.6 mg DAILY PO 06/24/21 09:00 06/28/21 09:00 Sodium Chloride (Saline Mist Nasal) 1 [place] PRN Q4HRS PRN NS nasal dryness 06/23/21 17:00 Trazodone HCl (Desyrel) 50 mg HS PO 06/23/21 21:00 06/28/21 21:00 Divalproex Sodium (Depakote) 1,000 mg BID PO 06/23/21 21:00 06/28/21 21:00 Fluticasone Propionate (Flonase) 2 spray DAILY NS 06/24/21 09:00 06/28/21 08:59 Ketorolac Tromethamine (Acular) 1 drop QID OU 06/23/21 21:00 06/28/21 21:18 Lactulose (Lactulose) 30 gm BID PO 06/23/21 21:00 06/25/21 11:41 DC 06/25/21 08:42 Cetirizine HCl (ZyrTEC) 10 mg DAILY PO 06/24/21 09:00 06/28/21 09:01 Meclizine HCl (Antivert) 25 mg PRN Q4HRS PRN PO vertigo 06/23/21 17:45 Influenza Virus Vaccine Quadrival (Flulaval Quad [id number] Syringe) 0.5 ml ONCE ONCE VAX IM 06/24/21 09:00 06/24/21 09:01 DC 06/24/21 09:38 Miscellaneous (Lidoderm Patch Removal) 1 ea QHS MC 06/23/21 21:00 10/17/21 20:28 Cephalexin HCl (Keflex) 500 mg TID PO 06/25/21 14:00 06/30/21 10:00 06/28/21 21:19 I have reviewed the current psychotropics carefully including drug interactions. Risk benefit ratio favors no change other than as noted in my dictated progress note. Diagnosis: Problems: (1) Major depressive disorder in partial remission (2) Impulse control disorder, unspecified (3) Anxiety disorder, unspecified CORY MARAVILLA MD Jun 28, 2021 21:33
[2021-06-29] MEDS: LEVOTHYROXINE 25 MCG TABLET. PO SCH (05:07)
[2021-06-29 05:58] VITALS: BP 111/66
[2021-06-29] MEDS: IPRATROPIUM/ALBUTEROL 20/100mcg/INH INHALER. INH SCH ×4 (08:00→20:20)
[2021-06-29] MEDS: SENNOSIDES 8.6 MG TABLET PO SCH (08:39)
[2021-06-29] MEDS: ARIPiprazole 5 MG TABLET PO SCH (08:40)
[2021-06-29] MEDS: PANTOPRAZOLE 40 MG TABLET. PO SCH (08:40)
[2021-06-29] MEDS: METOPROLOL SUCC 24HR ER 25 MG TAB.ER.24H. PO SCH (08:40)
[2021-06-29] MEDS: DIVALPROEX SODIUM 250 MG TABLET.DR. PO SCH ×2 (08:40→20:19)
[2021-06-29] MEDS: ASPIRIN CHEWABLE 81 MG TABLET. PO SCH (08:40)
[2021-06-29] MEDS: APIXABAN 5 MG TABLET. PO SCH ×2 (08:40→20:19)
[2021-06-29] MEDS: DULoxetine HCL 30 MG CAPSULE.DR PO SCH (08:40)
[2021-06-29] MEDS: CEPHALEXIN 250 MG CAPSULE PO SCH ×3 (08:40→20:18)
[2021-06-29] MEDS: CETIRIZINE HCL 10 MG TABLET PO SCH (08:40)
[2021-06-29] MEDS: LIDOCAINE (700MG/PATCH) PATCH. TP SCH (08:41)
[2021-06-29] MEDS: KETOROLAC TROMETHAMINE 0.5% OPHTH SOLUTION BOTTLE. OU SCH ×4 (08:41→20:18)
[2021-06-29] MEDS: FLUTICASONE 50MCG/NASAL SPRAY 16GM BOTTLE. NS SCH (08:42)
[2021-06-29] MEDS: POLYETHYLENE GLYCOL 3350 17 GM PACKET. PO SCH (08:45)
[2021-06-29 15:45] VITALS: BP 124/82
[2021-06-29] MEDS: PATCH REMOVAL. MC SCH ×2 (20:19→21:00)
[2021-06-29] MEDS: traZODone 50 MG TABLET. PO SCH (20:19)
--- NOTE | 2021-06-29 21:32 | PDOC ---
Exam Note: Bharat Note: Please also refer to the separate dictated note~for this date of service dictated separately.~Patient seen individually. Discussed the patient with Nursing staff reviewed the chart.~Reviewed interim history and current functioning. Reviewed vital signs,~Labs/ Radiology~and current medications noted below. Continue current treatment with the changes noted in the dictated addendum note Assessment: Vital Signs/I&O: Vital Signs Date Time Temp Pulse Resp B/P (MAP) Pulse Ox O2 Delivery O2 Flow Rate FiO2 06/29/21 15:45 97.4 77 18 124/82 (96) 95 06/29/21 05:58 2.0 06/28/21 15:38 Room Air I & O 0 06/28/21 06/28/21 06/29/21 15:00 23:00 07:00 Intake Total 120 ml 480 ml Balance 120 ml 480 ml Current Medications: Meds: Current Medications Medications (Trade) Dose Ordered Sig/Anthony Route PRN Reason Start Time Stop Time Status Last Admin Dose Admin Acetaminophen (Tylenol) 650 mg PRN Q6HRS PRN PO MILD PAIN / TEMP > 100.3'F 06/23/21 16:30 06/24/21 20:44 Multi-Ingredient Ointment (Analgesic [place]) 1 [place] PRN QID PRN TP MUSCLE PAIN 06/23/21 16:30 Al Hydroxide/Mg Hydroxide (Mylanta Plus Xs) 15 ml PRN AFTMEALHC PRN PO DYSPEPSIA 06/23/21 16:30 Magnesium Hydroxide (Milk Of Magnesia) 2,400 mg PRN QHS PRN PO CONSTIPATION 06/23/21 16:30 Apixaban (Eliquis) 5 mg BID PO 06/23/21 21:00 06/29/21 20:19 Aripiprazole (Abilify) 7.5 mg DAILY PO 06/24/21 09:00 06/29/21 08:40 Aspirin (Aspirin Chewable) 81 mg DAILY PO 06/24/21 09:00 06/29/21 08:40 Duloxetine HCl (Cymbalta) 90 mg DAILY PO 06/24/21 09:00 06/29/21 08:40 Albuterol/ Ipratropium (Combivent Respimat 20-100 Mcg) 1 puff RTQID INH 06/23/21 20:00 06/29/21 20:20 Levothyroxine Sodium (Synthroid) 25 mcg DAILY06 PO 06/24/21 06:00 06/29/21 05:07 Lidocaine (Lidoderm) 1 patch DAILY TP 06/24/21 09:00 06/29/21 08:41 Metoprolol Succinate (Toprol Xl) 25 mg DAILY PO 06/24/21 09:00 06/29/21 08:40 Pantoprazole Sodium (Protonix) 40 mg DAILY PO 06/24/21 09:00 06/29/21 08:40 Polyethylene Glycol (miraLAX) 17 gm DAILY PO 06/24/21 09:00 Quetiapine Fumarate (SEROquel) 50 mg PRN QHS PRN PO sleep 06/23/21 17:00 Sennosides (Senna) 8.6 mg DAILY PO 06/24/21 09:00 06/29/21 08:39 Sodium Chloride (Saline Mist Nasal) 1 [place] PRN Q4HRS PRN NS nasal dryness 06/23/21 17:00 Trazodone HCl (Desyrel) 50 mg HS PO 06/23/21 21:00 06/29/21 20:19 Divalproex Sodium (Depakote) 1,000 mg BID PO 06/23/21 21:00 06/29/21 20:19 Fluticasone Propionate (Flonase) 2 spray DAILY NS 06/24/21 09:00 06/29/21 08:42 Ketorolac Tromethamine (Acular) 1 drop QID OU 06/23/21 21:00 06/29/21 20:18 Lactulose (Lactulose) 30 gm BID PO 06/23/21 21:00 06/25/21 11:41 DC 06/25/21 08:42 Cetirizine HCl (ZyrTEC) 10 mg DAILY PO 06/24/21 09:00 06/29/21 08:40 Meclizine HCl (Antivert) 25 mg PRN Q4HRS PRN PO vertigo 06/23/21 17:45 Influenza Virus Vaccine Quadrival (Flulaval Quad [id number] Syringe) 0.5 ml ONCE ONCE VAX IM 06/24/21 09:00 06/24/21 09:01 DC 06/24/21 09:38 Miscellaneous (Lidoderm Patch Removal) 1 ea QHS MC 06/23/21 21:00 06/28/21 20:28 Cephalexin HCl (Keflex) 500 mg TID PO 06/25/21 14:00 06/30/21 10:00 06/29/21 20:18 I have reviewed the current psychotropics carefully including drug interactions. Risk benefit ratio favors no change other than as noted in my dictated progress note. Diagnosis: Problems: (1) Impulse control disorder, unspecified (2) Anxiety disorder, unspecified (3) Bipolar disorder, current episode mixed, severe, with psychotic features (4) Major depressive disorder in partial remission CORY MARAVILLA MD Jun 29, 2021 21:32
[2021-06-30] MEDS: LEVOTHYROXINE 25 MCG TABLET. PO SCH (05:31)
[2021-06-30 06:04] VITALS: BP 109/69
[2021-06-30 06:57] LABS: ALBUMIN 2.7 g/dL (3.4-5.0); ALBUMIN/GLOBULIN RATIO 0.8 (1.0-1.7); CALCIUM 8.5 mg/dL (8.5-10.1); CREATININE 0.6 mg/dL (0.6-1.0); GFR 98.5; POTASSIUM 4.2 mmol/L (3.5-5.1); TOTAL BILIRUBIN 0.3 mg/dL (0.2-1.0); TOTAL PROTEIN 6.2 g/dL (6.4-8.2)
[2021-06-30 07:30] LABS: BASO # 0.1 x10^3/uL (0.0-0.2); BASO % 1 % (0-3); EOS # 0.3 x10^3/uL (0.0-0.7); EOS % 3 % (0-3); HEMATOCRIT 41.1 % (36.0-47.0); HEMOGLOBIN 13.3 g/dL (12.0-15.5); LYMPH # 4.7 x10^3/uL (1.0-4.8); LYMPH % 44 % (24-48); MEAN CORPUSCULAR HEMOGLOBIN 31 pg (25-35); MEAN CORPUSCULAR HGB CONC 32 g/dL (31-37); MEAN CORPUSCULAR VOLUME 96 fL (79-100); MONO # 0.9 x10^3/uL (0.0-1.1); MONO % 8 % (0-9); NEUT # 4.9 x10^3uL (1.8-7.7); NEUT % 45 % (31-73); PLATELET COUNT 277 x10^3/uL (140-400); RED BLOOD COUNT 4.28 x10^6/uL (3.50-5.40); RED CELL DISTRIBUTION WIDTH 14.1 % (11.5-14.5); WHITE BLOOD COUNT 10.8 x10^3/uL (4.0-11.0)
[2021-06-30] MEDS: IPRATROPIUM/ALBUTEROL 20/100mcg/INH INHALER. INH SCH ×4 (08:00→19:56)
[2021-06-30] MEDS: KETOROLAC TROMETHAMINE 0.5% OPHTH SOLUTION BOTTLE. OU SCH ×4 (08:43→19:55)
[2021-06-30] MEDS: DULoxetine HCL 30 MG CAPSULE.DR PO SCH (08:44)
[2021-06-30] MEDS: CETIRIZINE HCL 10 MG TABLET PO SCH (08:44)
[2021-06-30] MEDS: METOPROLOL SUCC 24HR ER 25 MG TAB.ER.24H. PO SCH (08:44)
[2021-06-30] MEDS: FLUTICASONE 50MCG/NASAL SPRAY 16GM BOTTLE. NS SCH (08:44)
[2021-06-30] MEDS: LIDOCAINE (700MG/PATCH) PATCH. TP SCH (08:44)
[2021-06-30] MEDS: ASPIRIN CHEWABLE 81 MG TABLET. PO SCH (08:44)
[2021-06-30] MEDS: PANTOPRAZOLE 40 MG TABLET. PO SCH (08:44)
[2021-06-30] MEDS: DIVALPROEX SODIUM 250 MG TABLET.DR. PO SCH ×2 (08:44→19:55)
[2021-06-30] MEDS: ARIPiprazole 5 MG TABLET PO SCH (08:44)
[2021-06-30] MEDS: APIXABAN 5 MG TABLET. PO SCH ×2 (08:44→19:55)
[2021-06-30] MEDS: POLYETHYLENE GLYCOL 3350 17 GM PACKET. PO SCH (08:45)
[2021-06-30] MEDS: CEPHALEXIN 250 MG CAPSULE PO SCH (08:45)
[2021-06-30] MEDS: SENNOSIDES 8.6 MG TABLET PO SCH (08:45)
[2021-06-30 15:33] VITALS: BP_SYST 171; BP_SYST 95; BP_DIAS 60; BP_DIAS 83
[2021-06-30] MEDS: traZODone 50 MG TABLET. PO SCH (19:55)
[2021-06-30] MEDS: PATCH REMOVAL. MC SCH (19:57)
--- NOTE | 2021-06-30 22:44 | PDOC ---
Exam Note: Bharat Note: Please also refer to the separate dictated note~for this date of service dictated separately.~Patient seen individually. Discussed the patient with Nursing staff reviewed the chart.~Reviewed interim history and current functioning. Reviewed vital signs,~Labs/ Radiology~and current medications noted below. Continue current treatment with the changes noted in the dictated addendum note Assessment: Vital Signs/I&O: Vital Signs Date Time Temp Pulse Resp B/P (MAP) Pulse Ox O2 Delivery O2 Flow Rate FiO2 06/30/21 15:33 97.0 63 18 95/60 (72) 95 2.0 06/28/21 15:38 Room Air I & O 06/29/21 06/29/21 06/30/21 15:00 23:00 07:00 Intake Total 720 ml 600 ml Balance 720 ml 600 ml Labs: Laboratory Tests Test 06/30/21 05:30 06/30/21 06:18 SARS-CoV-2 (PCR) Not detected (NOT DETECTD) White Blood Count 10.8 x10^3/uL (4.0-11.0) Red Blood Count 4.28 x10^6/uL (3.50-5.40) Hemoglobin 13.3 g/dL (12.0-15.5) Hematocrit 41.1 % (36.0-47.0) Mean Corpuscular Volume 96 fL (79-100) Mean Corpuscular Hemoglobin 31 pg (25-35) Mean Corpuscular Hemoglobin Concent 32 g/dL (31-37) Red Cell Distribution Width 14.1 % (11.5-14.5) Platelet Count 277 x10^3/uL (140-400) Neutrophils (%) (Auto) 45 % (31-73) Lymphocytes (%) (Auto) 44 % (24-48) Monocytes (%) (Auto) 8 % (0-9) Eosinophils (%) (Auto) 3 % (0-3) Basophils (%) (Auto) 1 % (0-3) Neutrophils # (Auto) 4.9 x10^3uL (1.8-7.7) Lymphocytes # (Auto) 4.7 x10^3/uL (1.0-4.8) Monocytes # (Auto) 0.9 x10^3/uL (0.0-1.1) Eosinophils # (Auto) 0.3 x10^3/uL (0.0-0.7) Basophils # (Auto) 0.1 x10^3/uL (0.0-0.2) Sodium Level 143 mmol/L (136-145) Potassium Level 4.2 mmol/L (3.5-5.1) Chloride Level 108 mmol/L (98-107) H Carbon Dioxide Level 30 mmol/L (21-32) Anion Gap 5 (6-14) L Blood Urea Nitrogen 23 mg/dL (7-20) H Creatinine 0.6 mg/dL (0.6-1.0) Estimated GFR (Cockcroft-Gault) 98.5 BUN/Creatinine Ratio 38 (6-20) H Glucose Level 91 mg/dL (70-99) Calcium Level 8.5 mg/dL (8.5-10.1) Total Bilirubin 0.3 mg/dL (0.2-1.0) Aspartate Amino Transferase (AST) 12 U/L (15-37) L Alanine Aminotransferase (ALT) 14 U/L (14-59) Alkaline Phosphatase 93 U/L (46-116) Total Protein 6.2 g/dL (6.4-8.2) L Albumin 2.7 g/dL (3.4-5.0) L Albumin/Globulin Ratio 0.8 (1.0-1.7) L Current Medications: Meds: Laboratory Tests Test 06/30/21 05:30 06/30/21 06:18 Coronavirus (COVID-19)(PCR) Not detected White Blood Count 10.8 x10^3/uL Red Blood Count 4.28 x10^6/uL Hemoglobin 13.3 g/dL Hematocrit 41.1 % Mean Corpuscular Volume 96 fL Mean Corpuscular Hemoglobin 31 pg Mean Corpuscular Hemoglobin Concent 32 g/dL Red Cell Distribution Width 14.1 % Platelet Count 277 x10^3/uL Neutrophils (%) (Auto) 45 % Lymphocytes (%) (Auto) 44 % Monocytes (%) (Auto) 8 % Eosinophils (%) (Auto) 3 % Basophils (%) (Auto) 1 % Neutrophils # (Auto) 4.9 x10^3uL Lymphocytes # (Auto) 4.7 x10^3/uL Monocytes # (Auto) 0.9 x10^3/uL Eosinophils # (Auto) 0.3 x10^3/uL Basophils # (Auto) 0.1 x10^3/uL Sodium Level 143 mmol/L Potassium Level 4.2 mmol/L Chloride Level 108 mmol/L Carbon Dioxide Level 30 mmol/L Anion Gap 5 Blood Urea Nitrogen 23 mg/dL Creatinine 0.6 mg/dL Estimated GFR (Cockcroft-Gault) 98.5 BUN/Creatinine Ratio 38 Glucose Level 91 mg/dL Calcium Level 8.5 mg/dL Total Bilirubin 0.3 mg/dL Aspartate Amino Transf (AST/SGOT) 12 U/L Alanine Aminotransferase (ALT/SGPT) 14 U/L Alkaline Phosphatase 93 U/L Total Protein 6.2 g/dL Albumin 2.7 g/dL Albumin/Globulin Ratio 0.8 Current Medications Medications (Trade) Dose Ordered Sig/Anthony Route PRN Reason Start Time Stop Time Status Last Admin Dose Admin Acetaminophen (Tylenol) 650 mg PRN Q6HRS PRN PO MILD PAIN / TEMP > 100.3'F 06/23/21 16:30 06/24/21 20:44 Multi-Ingredient Ointment (Analgesic [place]) 1 [place] PRN QID PRN TP MUSCLE PAIN 06/23/21 16:30 Al Hydroxide/Mg Hydroxide (Mylanta Plus Xs) 15 ml PRN AFTMEALHC PRN PO DYSPEPSIA 06/23/21 16:30 Magnesium Hydroxide (Milk Of Magnesia) 2,400 mg PRN QHS PRN PO CONSTIPATION 06/23/21 16:30 Apixaban (Eliquis) 5 mg BID PO 06/23/21 21:00 06/30/21 19:55 Aripiprazole (Abilify) 7.5 mg DAILY PO 06/24/21 09:00 06/30/21 08:44 Aspirin (Aspirin Chewable) 81 mg DAILY PO 06/24/21 09:00 06/30/21 08:44 Duloxetine HCl (Cymbalta) 90 mg DAILY PO 06/24/21 09:00 06/30/21 08:44 Albuterol/ Ipratropium (Combivent Respimat 20-100 Mcg) 1 puff RTQID INH 06/23/21 20:00 06/30/21 19:56 Levothyroxine Sodium (Synthroid) 25 mcg DAILY06 PO 06/24/21 06:00 06/30/21 05:31 Lidocaine (Lidoderm) 1 patch DAILY TP 06/24/21 09:00 06/30/21 08:44 Metoprolol Succinate (Toprol Xl) 25 mg DAILY PO 06/24/21 09:00 06/30/21 08:44 Pantoprazole Sodium (Protonix) 40 mg DAILY PO 06/24/21 09:00 06/30/21 08:44 Polyethylene Glycol (miraLAX) 17 gm DAILY PO 06/24/21 09:00 Quetiapine Fumarate (SEROquel) 50 mg PRN QHS PRN PO sleep 06/23/21 17:00 Sennosides (Senna) 8.6 mg DAILY PO 06/24/21 09:00 06/30/21 08:45 Sodium Chloride (Saline Mist Nasal) 1 [place] PRN Q4HRS PRN NS nasal dryness 06/23/21 17:00 Trazodone HCl (Desyrel) 50 mg HS PO 06/23/21 21:00 06/30/21 19:55 Divalproex Sodium (Depakote) 1,000 mg BID PO 06/23/21 21:00 06/30/21 19:55 Fluticasone Propionate (Flonase) 2 spray DAILY NS 06/24/21 09:00 06/30/21 08:44 Ketorolac Tromethamine (Acular) 1 drop QID OU 06/23/21 21:00 06/30/21 19:55 Lactulose (Lactulose) 30 gm BID PO 06/23/21 21:00 06/25/21 11:41 DC 06/25/21 08:42 Cetirizine HCl (ZyrTEC) 10 mg DAILY PO 06/24/21 09:00 06/30/21 08:44 Meclizine HCl (Antivert) 25 mg PRN Q4HRS PRN PO vertigo 06/23/21 17:45 Influenza Virus Vaccine Quadrival (Flulaval Quad [id number] Syringe) 0.5 ml ONCE ONCE VAX IM 06/24/21 09:00 06/24/21 09:01 DC 06/24/21 09:38 Miscellaneous (Lidoderm Patch Removal) 1 ea QHS MC 06/23/21 21:00 06/28/21 20:28 Cephalexin HCl (Keflex) 500 mg TID PO 06/25/21 14:00 06/30/21 10:00 DC 06/30/21 08:45 I have reviewed the current psychotropics carefully including drug interactions. Risk benefit ratio favors no change other than as noted in my dictated progress note. Diagnosis: Problems: (1) Impulse control disorder, unspecified (2) Anxiety disorder, unspecified (3) Bipolar disorder, current episode mixed, severe, with psychotic features (4) Major depressive disorder in partial remission CORY MARAVILLA MD Jun 30, 2021 22:44
--- NOTE | 2021-06-30 23:52 | PN ---
DATE: 06/29/2021 PSYCHIATRIC PROGRESS NOTE This late entry 06/29/2021 covers elements not covered in my initial note. Discussed with WILLAM Vazquez. SUBJECTIVE: Overall, the patient is doing quite well. She slept 7 hours previous night. Remains isolative in her room, but appropriate working on crossword puzzles. REVIEW OF SYSTEMS: Ambulation impaired with walker. No CV, , pulmonary, eye, ENT system symptoms on review. Reliability fair. MENTAL STATUS EXAMINATION: Reasonably oriented. Speech coherent. Abstraction fair. Computation impaired. Language function intact. Mood and affect is improved. Labs reviewed. IMPRESSION: Unchanged from initial note. PLAN: No change from initial note. GHASSAN DR: Simba TID: [id number]
--- NOTE | 2021-06-30 23:52 | PN ---
DATE: 06/28/2021 PSYCHIATRIC PROGRESS NOTE This is a late entry of 06/28, covers the elements not covered in my initial note. SUBJECTIVE: The patient slept 7 hours previous night. Per WILLAM Hutchison, the patient has been appropriate on the unit, working on crossword puzzles with another patient. No overt manic symptoms or agitation or psychotic symptoms noted. I met with in her room. No CV, , pulmonary, eye system symptoms on review. Ambulation impaired with walker. MENTAL STATUS EXAMINATION: Reasonably oriented. Speech is coherent. Abstraction fair. Computation impaired. Language function intact. Attention span fair. Mood and affect was improved. Labs reviewed. IMPRESSION: Unchanged from initial note. PLAN: No change from initial note. CHRISTINE/EKT DR: Simba TID: [id number]
[2021-07-01 05:44] VITALS: BP 97/47
[2021-07-01] MEDS: LEVOTHYROXINE 25 MCG TABLET. PO SCH (06:06)
[2021-07-01] MEDS: IPRATROPIUM/ALBUTEROL 20/100mcg/INH INHALER. INH SCH ×5 (08:00→20:11)
[2021-07-01] MEDS: KETOROLAC TROMETHAMINE 0.5% OPHTH SOLUTION BOTTLE. OU SCH ×4 (08:15→19:58)
[2021-07-01] MEDS: FLUTICASONE 50MCG/NASAL SPRAY 16GM BOTTLE. NS SCH (08:15)
[2021-07-01] MEDS: DIVALPROEX SODIUM 250 MG TABLET.DR. PO SCH ×2 (08:22→19:58)
[2021-07-01] MEDS: ASPIRIN CHEWABLE 81 MG TABLET. PO SCH (08:22)
[2021-07-01] MEDS: CETIRIZINE HCL 10 MG TABLET PO SCH (08:22)
[2021-07-01] MEDS: POLYETHYLENE GLYCOL 3350 17 GM PACKET. PO SCH (08:22)
[2021-07-01] MEDS: APIXABAN 5 MG TABLET. PO SCH ×2 (08:22→19:59)
[2021-07-01] MEDS: ARIPiprazole 5 MG TABLET PO SCH (08:23)
[2021-07-01] MEDS: METOPROLOL SUCC 24HR ER 25 MG TAB.ER.24H. PO SCH (08:23)
[2021-07-01] MEDS: PANTOPRAZOLE 40 MG TABLET. PO SCH (08:23)
[2021-07-01] MEDS: DULoxetine HCL 30 MG CAPSULE.DR PO SCH (08:24)
[2021-07-01] MEDS: SENNOSIDES 8.6 MG TABLET PO SCH (08:24)
[2021-07-01 08:27] VITALS: BP 110/77
[2021-07-01] MEDS: LIDOCAINE (700MG/PATCH) PATCH. TP SCH (09:00)
[2021-07-01 15:45] VITALS: BP 106/70
[2021-07-01] MEDS: traZODone 50 MG TABLET. PO SCH (19:58)
[2021-07-01] MEDS: PATCH REMOVAL. MC SCH (19:58)
--- NOTE | 2021-07-01 21:48 | PDOC ---
Exam Note: Bharat Note: Please also refer to the separate dictated note~for this date of service dictated separately.~Patient seen individually. Discussed the patient with Nursing staff reviewed the chart.~Reviewed interim history and current functioning. Reviewed vital signs,~Labs/ Radiology~and current medications noted below. Continue current treatment with the changes noted in the dictated addendum note Assessment: Vital Signs/I&O: Vital Signs Date Time Temp Pulse Resp B/P (MAP) Pulse Ox O2 Delivery O2 Flow Rate FiO2 07/01/21 15:45 98.6 85 20 106/70 (82) 99 06/30/21 15:33 2.0 06/28/21 15:38 Room Air I & O 0 06/30/21 06/30/21 07/01/21 15:00 23:00 07:00 Intake Total 740 ml 740 ml Balance 740 ml 740 ml Current Medications: Meds: Current Medications Medications (Trade) Dose Ordered Sig/Anthony Route PRN Reason Start Time Stop Time Status Last Admin Dose Admin Acetaminophen (Tylenol) 650 mg PRN Q6HRS PRN PO MILD PAIN / TEMP > 100.3'F 06/23/21 16:30 06/24/21 20:44 Multi-Ingredient Ointment (Analgesic [place]) 1 [place] PRN QID PRN TP MUSCLE PAIN 06/23/21 16:30 Al Hydroxide/Mg Hydroxide (Mylanta Plus Xs) 15 ml PRN AFTMEALHC PRN PO DYSPEPSIA 06/23/21 16:30 Magnesium Hydroxide (Milk Of Magnesia) 2,400 mg PRN QHS PRN PO CONSTIPATION 06/23/21 16:30 Apixaban (Eliquis) 5 mg BID PO 06/23/21 21:00 07/01/21 19:59 Aripiprazole (Abilify) 7.5 mg DAILY PO 06/24/21 09:00 07/01/21 08:23 Aspirin (Aspirin Chewable) 81 mg DAILY PO 06/24/21 09:00 07/01/21 08:22 Duloxetine HCl (Cymbalta) 90 mg DAILY PO 06/24/21 09:00 07/01/21 08:24 Albuterol/ Ipratropium (Combivent Respimat 20-100 Mcg) 1 puff RTQID INH 06/23/21 20:00 06/30/21 19:56 Levothyroxine Sodium (Synthroid) 25 mcg DAILY06 PO 06/24/21 06:00 07/01/21 06:06 Lidocaine (Lidoderm) 1 patch DAILY TP 06/24/21 09:00 07/01/21 09:00 Metoprolol Succinate (Toprol Xl) 25 mg DAILY PO 06/24/21 09:00 07/01/21 08:23 Pantoprazole Sodium (Protonix) 40 mg DAILY PO 06/24/21 09:00 07/01/21 08:23 Polyethylene Glycol (miraLAX) 17 gm DAILY PO 06/24/21 09:00 07/01/21 08:22 Quetiapine Fumarate (SEROquel) 50 mg PRN QHS PRN PO sleep 06/23/21 17:00 Sennosides (Senna) 8.6 mg DAILY PO 06/24/21 09:00 07/01/21 08:24 Sodium Chloride (Saline Mist Nasal) 1 [place] PRN Q4HRS PRN NS nasal dryness 06/23/21 17:00 Trazodone HCl (Desyrel) 50 mg HS PO 06/23/21 21:00 07/01/21 19:58 Divalproex Sodium (Depakote) 1,000 mg BID PO 06/23/21 21:00 07/01/21 19:58 Fluticasone Propionate (Flonase) 2 spray DAILY NS 06/24/21 09:00 06/30/21 08:44 Ketorolac Tromethamine (Acular) 1 drop QID OU 06/23/21 21:00 07/01/21 19:58 Lactulose (Lactulose) 30 gm BID PO 06/23/21 21:00 06/25/21 11:41 DC 06/25/21 08:42 Cetirizine HCl (ZyrTEC) 10 mg DAILY PO 06/24/21 09:00 07/01/21 08:22 Meclizine HCl (Antivert) 25 mg PRN Q4HRS PRN PO vertigo 06/23/21 17:45 Influenza Virus Vaccine Quadrival (Flulaval Quad [id number] Syringe) 0.5 ml ONCE ONCE VAX IM 06/24/21 09:00 06/24/21 09:01 DC 06/24/21 09:38 Miscellaneous (Lidoderm Patch Removal) 1 ea QHS MC 06/23/21 21:00 07/01/21 19:58 Cephalexin HCl (Keflex) 500 mg TID PO 06/25/21 14:00 06/30/21 10:00 DC 06/30/21 08:45 I have reviewed the current psychotropics carefully including drug interactions. Risk benefit ratio favors no change other than as noted in my dictated progress note. Diagnosis: Problems: (1) Impulse control disorder, unspecified (2) Anxiety disorder, unspecified (3) Bipolar disorder, current episode mixed, severe, with psychotic features (4) Major depressive disorder in partial remission CORY MARAVILLA MD Jul 01, 2021 21:47
[2021-07-02] MEDS: LEVOTHYROXINE 25 MCG TABLET. PO SCH (05:33)
[2021-07-02 06:22] VITALS: BP 116/55
[2021-07-02] MEDS: POLYETHYLENE GLYCOL 3350 17 GM PACKET. PO SCH (08:30)
[2021-07-02] MEDS: KETOROLAC TROMETHAMINE 0.5% OPHTH SOLUTION BOTTLE. OU SCH ×4 (08:31→20:04)
[2021-07-02] MEDS: LIDOCAINE (700MG/PATCH) PATCH. TP SCH (08:32)
[2021-07-02] MEDS: APIXABAN 5 MG TABLET. PO SCH ×2 (08:33→20:04)
[2021-07-02] MEDS: METOPROLOL SUCC 24HR ER 25 MG TAB.ER.24H. PO SCH (08:33)
[2021-07-02] MEDS: PANTOPRAZOLE 40 MG TABLET. PO SCH (08:33)
[2021-07-02] MEDS: DULoxetine HCL 30 MG CAPSULE.DR PO SCH (08:33)
[2021-07-02] MEDS: DIVALPROEX SODIUM 250 MG TABLET.DR. PO SCH ×2 (08:33→20:04)
[2021-07-02] MEDS: CETIRIZINE HCL 10 MG TABLET PO SCH (08:33)
[2021-07-02] MEDS: SENNOSIDES 8.6 MG TABLET PO SCH (08:33)
[2021-07-02] MEDS: ARIPiprazole 5 MG TABLET PO SCH (08:33)
[2021-07-02] MEDS: ASPIRIN CHEWABLE 81 MG TABLET. PO SCH (08:33)
[2021-07-02] MEDS: FLUTICASONE 50MCG/NASAL SPRAY 16GM BOTTLE. NS SCH (08:39)
[2021-07-02] MEDS: IPRATROPIUM/ALBUTEROL 20/100mcg/INH INHALER. INH SCH ×3 (12:00→20:00)
--- NOTE | 2021-07-02 15:45 | TX PLAN ---
Interdisciplinary Tx Plan Admission Information Jun 23, 2021 at 15:49 Legal Status (on Admission): Voluntary DPOA/Guardian Name: Johanny Gonzalez Contact Other Contact Name: IVELISSE Richter Other Contact Verified Code Status: Full Code Allergies: Coded Allergies: adhesive tape (Verified Allergy, Severe, 06/23/21) aripiprazole (Verified Allergy, Mild, 06/23/21) weight gain sotalol (Verified Allergy, Mild, Diarrhea, 06/23/21) carbamazepine (Verified Allergy, Unknown, 06/23/21) escitalopram (Verified Allergy, Unknown, 06/23/21) paroxetine (Verified Allergy, Unknown, 06/23/21) phenytoin (Verified Allergy, Unknown, 06/23/21) primidone (Verified Allergy, Unknown, 06/23/21) sertraline (Verified Allergy, Unknown, 06/23/21) Diagnoses Primary Diagnosis: (1) Bipolar disorder, current episode mixed, severe, with psychotic features (2) Anxiety disorder, unspecified (3) Impulse control disorder, unspecified Reasons for Admission: Delusions, Agitated, Sig. Change Sleep, Anxiety/Panic, Hallucinations, Suspicious/paranoid, Confusion/Disoriented Problem in Patient's Words: Per pt she has a history of chroinc pain related to a previous brain tumor. She has a pain pump that she wonders if she had previously been given the proper dose of pain medications as she has often felt like she was in a fog and didn't know where she was at. Pt and Victorina MENDOZA,have discussed concerns with ammonia levels. Additional Admission Comments: Per intake record, pt showing agitation, anxiety, confusion/disorientation, psychosis, delusions of staff trying to kill her, hallucinations of seeing bodies, and refusing cares. Problems Active Problems: Confusion, feels like in a fog, anxiety Inactive Problems: Pt is not currently describing hallucinations, delusions, or paranoia. However, these symptoms will continue to be assessed and monitored. Pt has not, yet, displayed agitation, but this, too, will be assessed and monitored. Pt Strengths/Limitations Ability for [place]: Poor Cognitive Functioning/Ability: Fair Communication Skills/Ability: Good Financial Resources: Good Insight/Judgement: Fair Intellectual Ability: Good Physical Health: Poor Social Skills: Fair Stability in Family: Fair Stability in School/Work: Good Verbal Skills: Good Discharge Criteria Discharge Criteria: No need for close observ., OP monitor medical prob, Adequate arrangements @DC, Adequate self-care, Verbal commit med comply, Improved behavior, Improved mood/thought Other Discharge Comments: None at this time. Preliminary Discharge Plan Preliminary DC Plan: Current Living Arrange. 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 Initial D/C Plan Pt plan is to return to [facility] once stable. Identified Discharge Needs: None known at this time. Currently Utilized Resources Currently Utilized Resources/P: PCP through [facility]-Dr. Sabino WILSON-Victorina Gonzalez Referrals Community Resources: None at this time. Identified Problems/Hx/Goals Objectives/Short-Term Goals Short Term Goals: Control abnormal behavior, Dec. Anxiety/Panic, Dec. Hallucination/Delus, Dec. Symp. Depression, Medication Stabilization, Monitor Med Effects, Prevent Deterioration, Promote Coping Skill Short Term Goals in Patient's: Would like to feel less confused and like I'm in a fog. Also, would like to be able to enjoy some of the things I used to do. Interventions/Frequency Staff Interventions/Frequency&: Psychiatry to assess pt three times per week for medication management. Nursing to assess behaviors, monitor medications, and complete 15 minute checks daily. Social work to see pt at least two times weekly to aid in return to placement. Activities to encourage pt to participate in group activities daily. 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 Pt states that she had, also, taught at [place], [employer], and [place]. Education: Pt graduated high school from [place] [place] and later graduated college from [employer] with her master's in education. She, also, had previously attended various colleges before graduating from . Community Follow-up PCP Community Provider/Family Inpu: Pt REJI/JOANA, Victorina, participated in treatment team and is aware of pt hospitalization. Victorina is available for further information as needed. Treatment Plan Explained Patient/Settlement Technician had this treatment plan explained to him/her as indicated by the signature below and has been given the opportunity to ask questions and make suggestions: Date: Patient/Settlement Technician Signature: Status Update Update Pt is eating 80% of her meals and sleeping an average of 7 hours. Pt has been pleasant on the unit. Pt has experienced some anxiety and has been able to voice that. She is mostly withdrawn to her room, but will occasionally participate in groups. She is pleasant with staff and other pts. Pt had been treated for a UTI. Pt is on O2 2L NC. It is noted that if she becomes delusional or confused that her ammonia level should be checked. Pt will return to [facility] once stable. SELINA DICKENS Jul 02, 2021 15:45
[2021-07-02 16:06] VITALS: BP 74/52
[2021-07-02] MEDS: traZODone 50 MG TABLET. PO SCH (20:04)
[2021-07-02] MEDS: PATCH REMOVAL. MC SCH (20:04)
--- NOTE | 2021-07-02 22:12 | PDOC ---
Exam Note: Bharat Note: This note is a late entry for 06/30/2021 covers elements not covered in my initial note. Subjective: The patient was seen individually in the evening of 06/30/2021 with Gala QUARLES, discussed and reviewed the chart. The patient slept 7-1/4 hours previous night. She has been pleasant, cooperative. I met with her at length in her room. She has completed course of antibiotics for UTI. Review of Systems: Ambulation impaired with walker. No CV, , pulmonary, eye, ENT system symptoms on review. Mental Status Exam: The patient is reasonably oriented, pleasant, smiling, verbal, interactive. No psychotic symptoms or mood swings noted. Speech is coherent. Abstraction fair. Computation impaired. Language function intact. Attention span short. Mood and affect lability is improved. Laboratory Data: Reviewed. Impression: Bipolar 1 disorder mixed with psychotic features. Anxiety disorder unspecified. Impulse control disorder unspecified. Plan: Continue psychotropics unchanged. Assessment: Vital Signs/I&O: Vital Signs Date Time Temp Pulse Resp B/P (MAP) Pulse Ox O2 Delivery O2 Flow Rate FiO2 07/02/21 16:06 98.4 61 16 74/52 (59) 97 2.0 06/28/21 15:38 Room Air I & O 07/01/21 07/01/21 07/02/21 15:00 23:00 07:00 Intake Total 720 ml 480 ml Balance 720 ml 480 ml Current Medications: Meds: Current Medications Medications (Trade) Dose Ordered Sig/Anthony Route PRN Reason Start Time Stop Time Status Last Admin Dose Admin Acetaminophen (Tylenol) 650 mg PRN Q6HRS PRN PO MILD PAIN / TEMP > 100.3'F 06/23/21 16:30 06/24/21 20:44 Multi-Ingredient Ointment (Analgesic [place]) 1 [place] PRN QID PRN TP MUSCLE PAIN 06/23/21 16:30 Al Hydroxide/Mg Hydroxide (Mylanta Plus Xs) 15 ml PRN AFTMEALHC PRN PO DYSPEPSIA 06/23/21 16:30 Magnesium Hydroxide (Milk Of Magnesia) 2,400 mg PRN QHS PRN PO CONSTIPATION 06/23/21 16:30 Apixaban (Eliquis) 5 mg BID PO 06/23/21 21:00 07/02/21 20:04 Aripiprazole (Abilify) 7.5 mg DAILY PO 06/24/21 09:00 07/02/21 08:33 Aspirin (Aspirin Chewable) 81 mg DAILY PO 06/24/21 09:00 07/02/21 08:33 Duloxetine HCl (Cymbalta) 90 mg DAILY PO 06/24/21 09:00 07/02/21 08:33 Albuterol/ Ipratropium (Combivent Respimat 20-100 Mcg) 1 puff RTQID INH 06/23/21 20:00 06/30/21 19:56 Levothyroxine Sodium (Synthroid) 25 mcg DAILY06 PO 06/24/21 06:00 07/02/21 05:33 Lidocaine (Lidoderm) 1 patch DAILY TP 06/24/21 09:00 07/02/21 08:32 Metoprolol Succinate (Toprol Xl) 25 mg DAILY PO 06/24/21 09:00 07/02/21 08:33 Pantoprazole Sodium (Protonix) 40 mg DAILY PO 06/24/21 09:00 07/02/21 08:33 Polyethylene Glycol (miraLAX) 17 gm DAILY PO 06/24/21 09:00 07/02/21 08:30 Quetiapine Fumarate (SEROquel) 50 mg PRN QHS PRN PO sleep 06/23/21 17:00 Sennosides (Senna) 8.6 mg DAILY PO 06/24/21 09:00 07/02/21 08:33 Sodium Chloride (Saline Mist Nasal) 1 [place] PRN Q4HRS PRN NS nasal dryness 06/23/21 17:00 Trazodone HCl (Desyrel) 50 mg HS PO 06/23/21 21:00 07/02/21 20:04 Divalproex Sodium (Depakote) 1,000 mg BID PO 06/23/21 21:00 07/02/21 20:04 Fluticasone Propionate (Flonase) 2 spray DAILY NS 06/24/21 09:00 06/30/21 08:44 Ketorolac Tromethamine (Acular) 1 drop QID OU 06/23/21 21:00 07/02/21 20:04 Lactulose (Lactulose) 30 gm BID PO 06/23/21 21:00 06/25/21 11:41 DC 06/25/21 08:42 Cetirizine HCl (ZyrTEC) 10 mg DAILY PO 06/24/21 09:00 07/02/21 08:33 Meclizine HCl (Antivert) 25 mg PRN Q4HRS PRN PO vertigo 06/23/21 17:45 Influenza Virus Vaccine Quadrival (Flulaval Quad Syringe) 0.5 ml ONCE ONCE VAX IM 06/24/21 09:00 06/24/21 09:01 DC 06/24/21 09:38 Miscellaneous (Lidoderm Patch Removal) 1 ea QHS MC 06/23/21 21:00 07/02/21 20:04 Cephalexin HCl (Keflex) 500 mg TID PO 06/25/21 14:00 06/30/21 10:00 DC 06/30/21 08:45 I have reviewed the current psychotropics carefully including drug interactions. Risk benefit ratio favors no change other than as noted in my dictated progress note. Diagnosis: Problems: (1) Impulse control disorder, unspecified (2) Anxiety disorder, unspecified (3) Bipolar disorder, current episode mixed, severe, with psychotic features CORY MARAVILLA MD Jul 02, 2021 22:12
--- NOTE | 2021-07-02 22:28 | PDOC ---
Exam Note: Bharat Note: Please also refer to the separate dictated note~for this date of service dictated separately.~Patient seen individually. Discussed the patient with Nursing staff reviewed the chart.~Reviewed interim history and current functioning. Reviewed vital signs,~Labs/ Radiology~and current medications noted below. Continue current treatment with the changes noted in the dictated addendum note Assessment: Vital Signs/I&O: Vital Signs Date Time Temp Pulse Resp B/P (MAP) Pulse Ox O2 Delivery O2 Flow Rate FiO2 07/02/21 16:06 98.4 61 16 74/52 (59) 97 2.0 06/28/21 15:38 Room Air I & O 07/01/21 07/01/21 07/02/21 15:00 23:00 07:00 Intake Total 720 ml 480 ml Balance 720 ml 480 ml Current Medications: Meds: Current Medications Medications (Trade) Dose Ordered Sig/Anthony Route PRN Reason Start Time Stop Time Status Last Admin Dose Admin Acetaminophen (Tylenol) 650 mg PRN Q6HRS PRN PO MILD PAIN / TEMP > 100.3'F 06/23/21 16:30 06/24/21 20:44 Multi-Ingredient Ointment (Analgesic [place]) 1 [place] PRN QID PRN TP MUSCLE PAIN 06/23/21 16:30 Al Hydroxide/Mg Hydroxide (Mylanta Plus Xs) 15 ml PRN AFTMEALHC PRN PO DYSPEPSIA 06/23/21 16:30 Magnesium Hydroxide (Milk Of Magnesia) 2,400 mg PRN QHS PRN PO CONSTIPATION 06/23/21 16:30 Apixaban (Eliquis) 5 mg BID PO 06/23/21 21:00 07/02/21 20:04 Aripiprazole (Abilify) 7.5 mg DAILY PO 06/24/21 09:00 07/02/21 08:33 Aspirin (Aspirin Chewable) 81 mg DAILY PO 06/24/21 09:00 07/02/21 08:33 Duloxetine HCl (Cymbalta) 90 mg DAILY PO 06/24/21 09:00 07/02/21 08:33 Albuterol/ Ipratropium (Combivent Respimat 20-100 Mcg) 1 puff RTQID INH 06/23/21 20:00 06/30/21 19:56 Levothyroxine Sodium (Synthroid) 25 mcg DAILY06 PO 06/24/21 06:00 07/02/21 05:33 Lidocaine (Lidoderm) 1 patch DAILY TP 06/24/21 09:00 07/02/21 08:32 Metoprolol Succinate (Toprol Xl) 25 mg DAILY PO 06/24/21 09:00 07/02/21 08:33 Pantoprazole Sodium (Protonix) 40 mg DAILY PO 06/24/21 09:00 07/02/21 08:33 Polyethylene Glycol (miraLAX) 17 gm DAILY PO 06/24/21 09:00 07/02/21 08:30 Quetiapine Fumarate (SEROquel) 50 mg PRN QHS PRN PO sleep 06/23/21 17:00 Sennosides (Senna) 8.6 mg DAILY PO 06/24/21 09:00 07/02/21 08:33 Sodium Chloride (Saline Mist Nasal) 1 [place] PRN Q4HRS PRN NS nasal dryness 06/23/21 17:00 Trazodone HCl (Desyrel) 50 mg HS PO 06/23/21 21:00 07/02/21 20:04 Divalproex Sodium (Depakote) 1,000 mg BID PO 06/23/21 21:00 07/02/21 20:04 Fluticasone Propionate (Flonase) 2 spray DAILY NS 06/24/21 09:00 06/30/21 08:44 Ketorolac Tromethamine (Acular) 1 drop QID OU 06/23/21 21:00 07/02/21 20:04 Lactulose (Lactulose) 30 gm BID PO 06/23/21 21:00 06/25/21 11:41 DC 06/25/21 08:42 Cetirizine HCl (ZyrTEC) 10 mg DAILY PO 06/24/21 09:00 07/02/21 08:33 Meclizine HCl (Antivert) 25 mg PRN Q4HRS PRN PO vertigo 06/23/21 17:45 Influenza Virus Vaccine Quadrival (Flulaval Quad [id number] Syringe) 0.5 ml ONCE ONCE VAX IM 06/24/21 09:00 06/24/21 09:01 DC 06/24/21 09:38 Miscellaneous (Lidoderm Patch Removal) 1 ea QHS MC 06/23/21 21:00 07/02/21 20:04 Cephalexin HCl (Keflex) 500 mg TID PO 06/25/21 14:00 06/30/21 10:00 DC 06/30/21 08:45 I have reviewed the current psychotropics carefully including drug interactions. Risk benefit ratio favors no change other than as noted in my dictated progress note. Diagnosis: Problems: (1) Impulse control disorder, unspecified (2) Anxiety disorder, unspecified (3) Bipolar disorder, current episode mixed, severe, with psychotic features CORY MARAVILLA MD Jul 02, 2021 22:28
[2021-07-03] MEDS: LEVOTHYROXINE 25 MCG TABLET. PO SCH (05:50)
[2021-07-03 05:55] VITALS: BP 92/54
[2021-07-03] MEDS: IPRATROPIUM/ALBUTEROL 20/100mcg/INH INHALER. INH SCH ×4 (08:00→19:58)
[2021-07-03] MEDS: DIVALPROEX SODIUM 250 MG TABLET.DR. PO SCH ×2 (08:31→20:00)
[2021-07-03] MEDS: APIXABAN 5 MG TABLET. PO SCH ×2 (08:31→20:00)
[2021-07-03] MEDS: ASPIRIN CHEWABLE 81 MG TABLET. PO SCH (08:31)
[2021-07-03] MEDS: CETIRIZINE HCL 10 MG TABLET PO SCH (08:31)
[2021-07-03] MEDS: PANTOPRAZOLE 40 MG TABLET. PO SCH (08:32)
[2021-07-03] MEDS: ARIPiprazole 5 MG TABLET PO SCH (08:32)
[2021-07-03] MEDS: DULoxetine HCL 30 MG CAPSULE.DR PO SCH (08:32)
[2021-07-03] MEDS: SENNOSIDES 8.6 MG TABLET PO SCH (08:32)
--- NOTE | 2021-07-03 08:32 | PDOC ---
Exam Note: Bharat Note: This note is a late entry for 07/01/2021 covers elements not covered in my initial note. Subjective: The patient was seen individually in the evening of 07/01/2021 with Yolanda RN, discussed and reviewed the chart. The patient slept 5-1/4 hours previous night. She is compliant with medications. No behaviors noted. She has been pleasant, working on Crossword puzzles. She came to the dayroom, interactive. Review of Systems: Ambulation impaired with walker. No CV, , pulmonary, eye, ENT system symptoms on review. Reliability fair. Mental Status Exam: The patient is reasonably oriented. Speech is coherent has some latency. Abstraction fair. Computation somewhat impaired. Language function intact. Attention span fair. Mood and affect appears stable. Laboratory Data: Reviewed. Impression: Major depressive disorder recurrent in partial remission status post delirium secondary to UTI, seems to be resolved. Anxiety disorder un specified. Impulse control disorder unspecified. Plan: Continue current psychotropics Cymbalta, Depakote along with trazodone and Abilify. She seemed stable on it, tolerating without side effects. We will discuss at treatment team meeting on 07/02/2021 and transition back to longterm soon. Assessment: Vital Signs/I&O: Vital Signs Date Time Temp Pulse Resp B/P (MAP) Pulse Ox O2 Delivery O2 Flow Rate FiO2 07/03/21 05:55 97.3 64 18 92/54 (67) 93 07/02/21 16:06 2.0 06/28/21 15:38 Room Air I & O 07/02/21 07/02/21 07/03/21 15:00 23:00 07:00 Intake Total 840 ml 480 ml Balance 840 ml 480 ml Current Medications: Meds: Current Medications Medications (Trade) Dose Ordered Sig/Anthony Route PRN Reason Start Time Stop Time Status Last Admin Dose Admin Acetaminophen (Tylenol) 650 mg PRN Q6HRS PRN PO MILD PAIN / TEMP > 100.3'F 06/23/21 16:30 06/24/21 20:44 Multi-Ingredient Ointment (Analgesic [place]) 1 [place] PRN QID PRN TP MUSCLE PAIN 06/23/21 16:30 Al Hydroxide/Mg Hydroxide (Mylanta Plus Xs) 15 ml PRN AFTMEALHC PRN PO DYSPEPSIA 06/23/21 16:30 Magnesium Hydroxide (Milk Of Magnesia) 2,400 mg PRN QHS PRN PO CONSTIPATION 06/23/21 16:30 Apixaban (Eliquis) 5 mg BID PO 06/23/21 21:00 07/02/21 20:04 Aripiprazole (Abilify) 7.5 mg DAILY PO 06/24/21 09:00 07/02/21 08:33 Aspirin (Aspirin Chewable) 81 mg DAILY PO 06/24/21 09:00 07/02/21 08:33 Duloxetine HCl (Cymbalta) 90 mg DAILY PO 06/24/21 09:00 07/02/21 08:33 Albuterol/ Ipratropium (Combivent Respimat 20-100 Mcg) 1 puff RTQID INH 06/23/21 20:00 06/30/21 19:56 Levothyroxine Sodium (Synthroid) 25 mcg DAILY06 PO 06/24/21 06:00 07/03/21 05:50 Lidocaine (Lidoderm) 1 patch DAILY TP 06/24/21 09:00 07/02/21 08:32 Metoprolol Succinate (Toprol Xl) 25 mg DAILY PO 06/24/21 09:00 07/02/21 08:33 Pantoprazole Sodium (Protonix) 40 mg DAILY PO 06/24/21 09:00 07/02/21 08:33 Polyethylene Glycol (miraLAX) 17 gm DAILY PO 06/24/21 09:00 07/02/21 08:30 Quetiapine Fumarate (SEROquel) 50 mg PRN QHS PRN PO sleep 06/23/21 17:00 Sennosides (Senna) 8.6 mg DAILY PO 06/24/21 09:00 07/02/21 08:33 Sodium Chloride (Saline Mist Nasal) 1 [place] PRN Q4HRS PRN NS nasal dryness 06/23/21 17:00 Trazodone HCl (Desyrel) 50 mg HS PO 06/23/21 21:00 07/02/21 20:04 Divalproex Sodium (Depakote) 1,000 mg BID PO 06/23/21 21:00 07/02/21 20:04 Fluticasone Propionate (Flonase) 2 spray DAILY NS 06/24/21 09:00 06/30/21 08:44 Ketorolac Tromethamine (Acular) 1 drop QID OU 06/23/21 21:00 07/02/21 20:04 Lactulose (Lactulose) 30 gm BID PO 06/23/21 21:00 06/25/21 11:41 DC 06/25/21 08:42 Cetirizine HCl (ZyrTEC) 10 mg DAILY PO 06/24/21 09:00 07/02/21 08:33 Meclizine HCl (Antivert) 25 mg PRN Q4HRS PRN PO vertigo 06/23/21 17:45 Influenza Virus Vaccine Quadrival (Flulaval Quad Syringe) 0.5 ml ONCE ONCE VAX IM 06/24/21 09:00 06/24/21 09:01 DC 06/24/21 09:38 Miscellaneous (Lidoderm Patch Removal) 1 ea QHS MC 06/23/21 21:00 07/02/21 20:04 Cephalexin HCl (Keflex) 500 mg TID PO 06/25/21 14:00 06/30/21 10:00 DC 06/30/21 08:45 I have reviewed the current psychotropics carefully including drug interactions. Risk benefit ratio favors no change other than as noted in my dictated progress note. Diagnosis: Problems: (1) Impulse control disorder, unspecified (2) Anxiety disorder, unspecified (3) Major depressive disorder in partial remission CORY MARAVILLA MD Jul 03, 2021 08:32
[2021-07-03] MEDS: METOPROLOL SUCC 24HR ER 25 MG TAB.ER.24H. PO SCH (08:45)
[2021-07-03] MEDS: POLYETHYLENE GLYCOL 3350 17 GM PACKET. PO SCH (08:46)
[2021-07-03] MEDS: KETOROLAC TROMETHAMINE 0.5% OPHTH SOLUTION BOTTLE. OU SCH ×4 (08:46→20:02)
[2021-07-03] MEDS: FLUTICASONE 50MCG/NASAL SPRAY 16GM BOTTLE. NS SCH (08:46)
[2021-07-03] MEDS: LIDOCAINE (700MG/PATCH) PATCH. TP SCH (08:46)
[2021-07-03 15:47] VITALS: BP 98/64
[2021-07-03] MEDS: traZODone 50 MG TABLET. PO SCH (19:59)
[2021-07-03] MEDS: PATCH REMOVAL. MC SCH (20:02)
--- NOTE | 2021-07-03 21:41 | PDOC ---
Exam Note: Bharat Note: Please also refer to the separate dictated note~for this date of service dictated separately.~Patient seen individually. Discussed the patient with Nursing staff reviewed the chart.~Reviewed interim history and current functioning. Reviewed vital signs,~Labs/ Radiology~and current medications noted below. Continue current treatment with the changes noted in the dictated addendum note Assessment: Vital Signs/I&O: Vital Signs Date Time Temp Pulse Resp B/P (MAP) Pulse Ox O2 Delivery O2 Flow Rate FiO2 07/03/21 15:47 97.9 61 20 98/64 (75) 94 07/02/21 16:06 2.0 06/28/21 15:38 Room Air I & O 07/02/21 07/02/21 07/03/21 15:00 23:00 07:00 Intake Total 840 ml 480 ml Balance 840 ml 480 ml Current Medications: Meds: Current Medications Medications (Trade) Dose Ordered Sig/Anthony Route PRN Reason Start Time Stop Time Status Last Admin Dose Admin Acetaminophen (Tylenol) 650 mg PRN Q6HRS PRN PO MILD PAIN / TEMP > 100.3'F 06/23/21 16:30 06/24/21 20:44 Multi-Ingredient Ointment (Analgesic [place]) 1 [place] PRN QID PRN TP MUSCLE PAIN 06/23/21 16:30 Al Hydroxide/Mg Hydroxide (Mylanta Plus Xs) 15 ml PRN AFTMEALHC PRN PO DYSPEPSIA 06/23/21 16:30 Magnesium Hydroxide (Milk Of Magnesia) 2,400 mg PRN QHS PRN PO CONSTIPATION 06/23/21 16:30 Apixaban (Eliquis) 5 mg BID PO 06/23/21 21:00 07/03/21 20:00 Aripiprazole (Abilify) 7.5 mg DAILY PO 06/24/21 09:00 07/03/21 08:32 Aspirin (Aspirin Chewable) 81 mg DAILY PO 06/24/21 09:00 07/03/21 08:31 Duloxetine HCl (Cymbalta) 90 mg DAILY PO 06/24/21 09:00 07/03/21 08:32 Albuterol/ Ipratropium (Combivent Respimat 20-100 Mcg) 1 puff RTQID INH 06/23/21 20:00 06/30/21 19:56 Levothyroxine Sodium (Synthroid) 25 mcg DAILY06 PO 06/24/21 06:00 07/03/21 05:50 Lidocaine (Lidoderm) 1 patch DAILY TP 06/24/21 09:00 07/03/21 08:46 Metoprolol Succinate (Toprol Xl) 25 mg DAILY PO 06/24/21 09:00 07/03/21 08:45 Pantoprazole Sodium (Protonix) 40 mg DAILY PO 06/24/21 09:00 07/03/21 08:32 Polyethylene Glycol (miraLAX) 17 gm DAILY PO 06/24/21 09:00 07/03/21 08:46 Quetiapine Fumarate (SEROquel) 50 mg PRN QHS PRN PO sleep 06/23/21 17:00 Sennosides (Senna) 8.6 mg DAILY PO 06/24/21 09:00 07/03/21 08:32 Sodium Chloride (Saline Mist Nasal) 1 [place] PRN Q4HRS PRN NS nasal dryness 06/23/21 17:00 Trazodone HCl (Desyrel) 50 mg HS PO 06/23/21 21:00 07/03/21 19:59 Divalproex Sodium (Depakote) 1,000 mg BID PO 06/23/21 21:00 07/03/21 20:00 Fluticasone Propionate (Flonase) 2 spray DAILY NS 06/24/21 09:00 07/03/21 08:46 Ketorolac Tromethamine (Acular) 1 drop QID OU 06/23/21 21:00 07/03/21 20:02 Lactulose (Lactulose) 30 gm BID PO 06/23/21 21:00 06/25/21 11:41 DC 06/25/21 08:42 Cetirizine HCl (ZyrTEC) 10 mg DAILY PO 06/24/21 09:00 07/03/21 08:31 Meclizine HCl (Antivert) 25 mg PRN Q4HRS PRN PO vertigo 06/23/21 17:45 Influenza Virus Vaccine Quadrival (Flulaval Quad [id number] Syringe) 0.5 ml ONCE ONCE VAX IM 06/24/21 09:00 06/24/21 09:01 DC 06/24/21 09:38 Miscellaneous (Lidoderm Patch Removal) 1 ea QHS MC 06/23/21 21:00 07/03/21 20:02 Cephalexin HCl (Keflex) 500 mg TID PO 06/25/21 14:00 06/30/21 10:00 DC 06/30/21 08:45 I have reviewed the current psychotropics carefully including drug interactions. Risk benefit ratio favors no change other than as noted in my dictated progress note. Diagnosis: Problems: (1) Impulse control disorder, unspecified (2) Anxiety disorder, unspecified (3) Major depressive disorder in partial remission CORY MARAVILLA MD Jul 03, 2021 21:41
[2021-07-04] MEDS: LEVOTHYROXINE 25 MCG TABLET. PO SCH (05:25)
[2021-07-04 05:59] VITALS: BP 107/70
[2021-07-04] MEDS: IPRATROPIUM/ALBUTEROL 20/100mcg/INH INHALER. INH SCH (08:00)
[2021-07-04] MEDS: LIDOCAINE (700MG/PATCH) PATCH. TP SCH (08:27)
[2021-07-04] MEDS: POLYETHYLENE GLYCOL 3350 17 GM PACKET. PO SCH (08:27)
[2021-07-04] MEDS: ASPIRIN CHEWABLE 81 MG TABLET. PO SCH (08:28)
[2021-07-04] MEDS: METOPROLOL SUCC 24HR ER 25 MG TAB.ER.24H. PO SCH (08:28)
[2021-07-04] MEDS: SENNOSIDES 8.6 MG TABLET PO SCH (08:28)
[2021-07-04] MEDS: PANTOPRAZOLE 40 MG TABLET. PO SCH (08:28)
[2021-07-04] MEDS: CETIRIZINE HCL 10 MG TABLET PO SCH (08:28)
[2021-07-04] MEDS: APIXABAN 5 MG TABLET. PO SCH ×2 (08:28→20:02)
[2021-07-04] MEDS: ARIPiprazole 5 MG TABLET PO SCH (08:29)
[2021-07-04] MEDS: DIVALPROEX SODIUM 250 MG TABLET.DR. PO SCH ×2 (08:29→20:02)
[2021-07-04] MEDS: DULoxetine HCL 30 MG CAPSULE.DR PO SCH (08:29)
[2021-07-04] MEDS: FLUTICASONE 50MCG/NASAL SPRAY 16GM BOTTLE. NS SCH (08:30)
[2021-07-04] MEDS: KETOROLAC TROMETHAMINE 0.5% OPHTH SOLUTION BOTTLE. OU SCH ×4 (08:50→20:01)
[2021-07-04] MEDS ORDERED: IPRATROPIUM/ALBUTEROL 20/100mcg/INH INHALER. INH PRN (10:15)
[2021-07-04] MEDS: CHOLECALCIFEROL (VITAMIN D3) 1,000 UNIT TABLET PO SCH (11:15)
[2021-07-04 15:10] VITALS: BP 98/58
[2021-07-04] MEDS: PATCH REMOVAL. MC SCH (20:02)
[2021-07-04] MEDS: traZODone 50 MG TABLET. PO SCH (20:03)
--- NOTE | 2021-07-04 22:05 | PDOC ---
Exam Note: Bharat Note: Please also refer to the separate dictated note~for this date of service dictated separately.~Patient seen individually. Discussed the patient with Nursing staff reviewed the chart.~Reviewed interim history and current functioning. Reviewed vital signs,~Labs/ Radiology~and current medications noted below. Continue current treatment with the changes noted in the dictated addendum note Assessment: Vital Signs/I&O: Vital Signs Date Time Temp Pulse Resp B/P (MAP) Pulse Ox O2 Delivery O2 Flow Rate FiO2 07/04/21 15:10 98.0 100 18 98/58 (71) 95 07/02/21 16:06 2.0 06/28/21 15:38 Room Air I & O 0 07/03/21 07/03/21 07/04/21 15:00 23:00 07:00 Intake Total 480 ml 480 ml Balance 480 ml 480 ml Current Medications: Meds: Current Medications Medications (Trade) Dose Ordered Sig/Anthony Route PRN Reason Start Time Stop Time Status Last Admin Dose Admin Acetaminophen (Tylenol) 650 mg PRN Q6HRS PRN PO MILD PAIN / TEMP > 100.3'F 06/23/21 16:30 06/24/21 20:44 Multi-Ingredient Ointment (Analgesic [place]) 1 [place] PRN QID PRN TP MUSCLE PAIN 06/23/21 16:30 Al Hydroxide/Mg Hydroxide (Mylanta Plus Xs) 15 ml PRN AFTMEALHC PRN PO DYSPEPSIA 06/23/21 16:30 Magnesium Hydroxide (Milk Of Magnesia) 2,400 mg PRN QHS PRN PO CONSTIPATION 06/23/21 16:30 Apixaban (Eliquis) 5 mg BID PO 06/23/21 21:00 07/04/21 20:02 Aripiprazole (Abilify) 7.5 mg DAILY PO 06/24/21 09:00 07/04/21 08:29 Aspirin (Aspirin Chewable) 81 mg DAILY PO 06/24/21 09:00 07/04/21 08:28 Duloxetine HCl (Cymbalta) 90 mg DAILY PO 06/24/21 09:00 07/04/21 08:29 Albuterol/ Ipratropium (Combivent Respimat 20-100 Mcg) 1 puff RTQID INH 06/23/21 20:00 07/04/21 10:23 DC 06/30/21 19:56 Levothyroxine Sodium (Synthroid) 25 mcg DAILY06 PO 06/24/21 06:00 07/04/21 05:25 Lidocaine (Lidoderm) 1 patch DAILY TP 06/24/21 09:00 07/04/21 08:27 Metoprolol Succinate (Toprol Xl) 25 mg DAILY PO 06/24/21 09:00 07/04/21 08:28 Pantoprazole Sodium (Protonix) 40 mg DAILY PO 06/24/21 09:00 07/04/21 08:28 Polyethylene Glycol (miraLAX) 17 gm DAILY PO 06/24/21 09:00 07/04/21 08:27 Quetiapine Fumarate (SEROquel) 50 mg PRN QHS PRN PO sleep 06/23/21 17:00 07/04/21 01:42 Sennosides (Senna) 8.6 mg DAILY PO 06/24/21 09:00 07/04/21 08:28 Sodium Chloride (Saline Mist Nasal) 1 [place] PRN Q4HRS PRN NS nasal dryness 06/23/21 17:00 Trazodone HCl (Desyrel) 50 mg HS PO 06/23/21 21:00 07/04/21 20:03 Divalproex Sodium (Depakote) 1,000 mg BID PO 06/23/21 21:00 07/04/21 20:02 Fluticasone Propionate (Flonase) 2 spray DAILY NS 06/24/21 09:00 07/04/21 08:30 Ketorolac Tromethamine (Acular) 1 drop QID OU 06/23/21 21:00 07/04/21 20:01 Lactulose (Lactulose) 30 gm BID PO 06/23/21 21:00 06/25/21 11:41 DC 06/25/21 08:42 Cetirizine HCl (ZyrTEC) 10 mg DAILY PO 06/24/21 09:00 07/04/21 08:28 Meclizine HCl (Antivert) 25 mg PRN Q4HRS PRN PO vertigo 06/23/21 17:45 Influenza Virus Vaccine Quadrival (Flulaval Quad [id number] Syringe) 0.5 ml ONCE ONCE VAX IM 06/24/21 09:00 06/24/21 09:01 DC 06/24/21 09:38 Miscellaneous (Lidoderm Patch Removal) 1 ea QHS MC 06/23/21 21:00 07/03/21 20:02 Cephalexin HCl (Keflex) 500 mg TID PO 06/25/21 14:00 06/30/21 10:00 DC 06/30/21 08:45 Albuterol/ Ipratropium (Combivent Respimat 20-100 Mcg) 1 puff PRN QID PRN INH SOA 07/04/21 10:15 Vitamin D (Vitamin D3) 1,000 unit DAILY PO 07/04/21 11:15 07/04/21 11:15 Current Medications Medications (Trade) Dose Ordered Sig/Anthony Route PRN Reason Start Time Stop Time Status Last Admin Dose Admin Vitamin D (Vitamin D3) 1,000 unit DAILY PO 07/04/21 11:15 07/04/21 11:15 I have reviewed the current psychotropics carefully including drug interactions. Risk benefit ratio favors no change other than as noted in my dictated progress note. Diagnosis: Problems: (1) Impulse control disorder, unspecified (2) Anxiety disorder, unspecified (3) Bipolar disorder, current episode mixed, severe, with psychotic features (4) Major depressive disorder in partial remission CORY MARAVILLA MD Jul 04, 2021 22:05
[2021-07-04 22:34] LABS: BILIRUBIN,URINE NEG (NEG); CLARITY,URINE CLOUDY; COLOR,URINE YELLOW; GLUCOSE,URINE NEG (NEG)
[2021-07-04 22:35] LABS: BACTERIA,URINE MOD /HPF (0-FEW); NITRITE,URINE NEG (NEG); RBC,URINE 0 /HPF (0-2); SQUAMOUS EPITHELIAL CELL,UR MOD /LPF
[2021-07-05] MEDS: LEVOTHYROXINE 25 MCG TABLET. PO SCH (05:16)
[2021-07-05 05:45] VITALS: BP 95/52
[2021-07-05] MEDS: KETOROLAC TROMETHAMINE 0.5% OPHTH SOLUTION BOTTLE. OU SCH ×4 (08:11→19:56)
[2021-07-05] MEDS: APIXABAN 5 MG TABLET. PO SCH ×2 (08:13→19:56)
[2021-07-05] MEDS: SENNOSIDES 8.6 MG TABLET PO SCH (08:13)
[2021-07-05] MEDS: ARIPiprazole 5 MG TABLET PO SCH (08:13)
[2021-07-05] MEDS: CHOLECALCIFEROL (VITAMIN D3) 1,000 UNIT TABLET PO SCH (08:13)
[2021-07-05] MEDS: DIVALPROEX SODIUM 250 MG TABLET.DR. PO SCH ×2 (08:13→19:56)
[2021-07-05] MEDS: PANTOPRAZOLE 40 MG TABLET. PO SCH (08:13)
[2021-07-05] MEDS: ASPIRIN CHEWABLE 81 MG TABLET. PO SCH (08:13)
[2021-07-05] MEDS: FLUTICASONE 50MCG/NASAL SPRAY 16GM BOTTLE. NS SCH (08:13)
[2021-07-05] MEDS: CETIRIZINE HCL 10 MG TABLET PO SCH (08:13)
[2021-07-05] MEDS: DULoxetine HCL 30 MG CAPSULE.DR PO SCH (08:13)
[2021-07-05] MEDS: POLYETHYLENE GLYCOL 3350 17 GM PACKET. PO SCH (08:17)
[2021-07-05] MEDS: METOPROLOL SUCC 24HR ER 25 MG TAB.ER.24H. PO SCH (08:17)
--- NOTE | 2021-07-05 08:39 | PDOC ---
Exam Note: Bharat Note: This note is a late entry for 07/02/2021 covers elements not covered in my initial note. Subjective: The patient was reviewed at treatment team meeting individually in the morning on 07/02/2021 with Bisi QUARLES, Consulting Technical Director, Maya Lopez, Vibha Alvarenga, and Sri Humphrey (social media strategist), [place], activity therapy and Tamera QUARLES, discussed and reviewed the chart. The patient slept 7-1/2 hours previous night. On review of the patients information indicate she had flu vaccine on 06/24. She has attended 3 groups in the past week per activity therapy report and spends much time in her room reading a book, does come out in the TV lounge. Also discussed with Asael QUARLES in the evening. Appetite is 80%. She is somewhat withdrawn, but no psychotic symptoms. Patients [id number] attended the treatment team meeting. Reviewed the patients history of depression rather than bipolar disorder and I have reviewed 50 or more pages past psychiatric records received on the patient from Dr. Reid indicative of diagnosis of major depressive disorder rather than bipolar disorder. Review of Systems: Ambulation impaired with walker. No CV, , pulmonary, eye, ENT system symptoms on review. Reliability fair. Mental Status Exam: The patient is reasonably oriented. Speech is coherent has some latency. Abstraction fair. Computation impaired. Language function intact. Attention span short. Mood and affect somewhat withdrawn but appropriate. No suic or homicidal ideation. Laboratory Data: Reviewed. 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 Anxiety disorder unspecified. Plan: Continue psychotropics from initial note including Cymbalta, Depakote along with trazodone, Abilify, and Seroquel p.r.n. Adjust as clinically indicated. Assessment: Vital Signs/I&O: Vital Signs Date Time Temp Pulse Resp B/P (MAP) Pulse Ox O2 Delivery O2 Flow Rate FiO2 07/05/21 08:17 61 95/52 07/05/21 05:45 97.7 16 97 07/02/21 16:06 2.0 I & O 07/04/21 07/04/21 07/05/21 15:00 23:00 07:00 Intake Total 840 ml 360 ml Balance 840 ml 360 ml Labs: Laboratory Tests Test 07/04/21 21:40 Urine Collection Type Unknown Urine Color Yellow Urine Clarity Cloudy Urine pH 6.0 Urine Specific [place] 1.025 Urine Protein Neg (NEG-TRACE) Urine Glucose (UA) Neg mg/dL (NEG) Urine Ketones (Stick) Trace mg/dL (NEG) Urine Blood Neg (NEG) Urine Nitrite Neg (NEG) Urine Bilirubin Neg (NEG) Urine Urobilinogen Dipstick 1.0 mg/dL (0.2 mg/dL) Urine Leukocyte Esterase Small (NEG) Urine RBC 0 /HPF (0-2) Urine WBC 5-10 /HPF (0-4) Urine Squamous Epithelial Cells Mod /LPF Urine Bacteria Mod /HPF (0-FEW) Current Medications: Meds: Laboratory Tests Test 07/04/21 21:40 Urine Collection Type Unknown Urine Color Yellow Urine Clarity Cloudy Urine pH 6.0 Urine Specific [place] 1.025 Urine Protein Neg Urine Glucose (UA) Neg mg/dL Urine Ketones (Stick) Trace mg/dL Urine Blood Neg Urine Nitrite Neg Urine Bilirubin Neg Urine Urobilinogen Dipstick 1.0 mg/dL Urine Leukocyte Esterase Small Urine RBC 0 /HPF Urine WBC 5-10 /HPF Urine Squamous Epithelial Cells Mod /LPF Urine Bacteria Mod /HPF Current Medications Medications (Trade) Dose Ordered Sig/Anthony Route PRN Reason Start Time Stop Time Status Last Admin Dose Admin Acetaminophen (Tylenol) 650 mg PRN Q6HRS PRN PO MILD PAIN / TEMP > 100.3'F 06/23/21 16:30 06/24/21 20:44 Multi-Ingredient Ointment (Analgesic [place]) 1 [place] PRN QID PRN TP MUSCLE PAIN 06/23/21 16:30 Al Hydroxide/Mg Hydroxide (Mylanta Plus Xs) 15 ml PRN AFTMEALHC PRN PO DYSPEPSIA 06/23/21 16:30 Magnesium Hydroxide (Milk Of Magnesia) 2,400 mg PRN QHS PRN PO CONSTIPATION 06/23/21 16:30 Apixaban (Eliquis) 5 mg BID PO 06/23/21 21:00 07/05/21 08:13 Aripiprazole (Abilify) 7.5 mg DAILY PO 06/24/21 09:00 07/05/21 08:13 Aspirin (Aspirin Chewable) 81 mg DAILY PO 06/24/21 09:00 07/05/21 08:13 Duloxetine HCl (Cymbalta) 90 mg DAILY PO 06/24/21 09:00 07/05/21 08:13 Albuterol/ Ipratropium (Combivent Respimat 20-100 Mcg) 1 puff RTQID INH 06/23/21 20:00 07/04/21 10:23 DC 06/30/21 19:56 Levothyroxine Sodium (Synthroid) 25 mcg DAILY06 PO 06/24/21 06:00 07/05/21 05:16 Lidocaine (Lidoderm) 1 patch DAILY TP 06/24/21 09:00 07/04/21 08:27 Metoprolol Succinate (Toprol Xl) 25 mg DAILY PO 06/24/21 09:00 07/04/21 08:28 Pantoprazole Sodium (Protonix) 40 mg DAILY PO 06/24/21 09:00 07/05/21 08:13 Polyethylene Glycol (miraLAX) 17 gm DAILY PO 06/24/21 09:00 07/05/21 08:17 Quetiapine Fumarate (SEROquel) 50 mg PRN QHS PRN PO sleep 06/23/21 17:00 07/04/21 01:42 Sennosides (Senna) 8.6 mg DAILY PO 06/24/21 09:00 07/05/21 08:13 Sodium Chloride (Saline Mist Nasal) 1 [place] PRN Q4HRS PRN NS nasal dryness 06/23/21 17:00 Trazodone HCl (Desyrel) 50 mg HS PO 06/23/21 21:00 07/04/21 20:03 Divalproex Sodium (Depakote) 1,000 mg BID PO 06/23/21 21:00 07/05/21 08:13 Fluticasone Propionate (Flonase) 2 spray DAILY NS 06/24/21 09:00 07/05/21 08:13 Ketorolac Tromethamine (Acular) 1 drop QID OU 06/23/21 21:00 07/05/21 08:11 Lactulose (Lactulose) 30 gm BID PO 06/23/21 21:00 06/25/21 11:41 DC 06/25/21 08:42 Cetirizine HCl (ZyrTEC) 10 mg DAILY PO 06/24/21 09:00 07/05/21 08:13 Meclizine HCl (Antivert) 25 mg PRN Q4HRS PRN PO vertigo 06/23/21 17:45 Influenza Virus Vaccine Quadrival (Flulaval Quad Syringe) 0.5 ml ONCE ONCE VAX IM 06/24/21 09:00 06/24/21 09:01 DC 06/24/21 09:38 Miscellaneous (Lidoderm Patch Removal) 1 ea QHS MC 06/23/21 21:00 07/03/21 20:02 Cephalexin HCl (Keflex) 500 mg TID PO 06/25/21 14:00 06/30/21 10:00 DC 06/30/21 08:45 Albuterol/ Ipratropium (Combivent Respimat 20-100 Mcg) 1 puff PRN QID PRN INH SOA 07/04/21 10:15 Vitamin D (Vitamin D3) 1,000 unit DAILY PO 07/04/21 11:15 07/05/21 08:13 Current Medications Medications (Trade) Dose Ordered Sig/Anthony Route PRN Reason Start Time Stop Time Status Last Admin Dose Admin Vitamin D (Vitamin D3) 1,000 unit DAILY PO 07/04/21 11:15 07/05/21 08:13 I have reviewed the current psychotropics carefully including drug interactions. Risk benefit ratio favors no change other than as noted in my dictated progress note. Diagnosis: Problems: (1) Major depressive disorder in partial remission (2) Anxiety disorder, unspecified (3) Impulse control disorder, unspecified CORY MARAVILLA MD Jul 05, 2021 08:39
--- NOTE | 2021-07-05 09:01 | PDOC ---
Exam Note: Bharat Note: This note is a late entry for 07/03/2021 covers elements not covered in my initial note. Subjective: The patient was seen individually in the evening of 07/03/2021 with Asael QUARLES, discussed and reviewed the chart. The patient slept 5-1/4 hours previous night. I met with the patient in her room. She has been fairly appropriate on the unit. No clear psychotic symptoms or behaviors noted. Review of Systems: Ambulation impaired with walker. No CV, , pulmonary, eye, ENT system symptoms on review. Mental Status Exam: The patient is reasonably oriented. Speech is coherent. Abstraction fair. Computation impaired. Language function intact. Mood and affect somewhat withdrawn. Laboratory Data: Reviewed. 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 Anxiety disorder unspecified. Plan: Continue psychotropics from initial note. Assessment: Vital Signs/I&O: Vital Signs Date Time Temp Pulse Resp B/P (MAP) Pulse Ox O2 Delivery O2 Flow Rate FiO2 07/05/21 08:17 61 95/52 07/05/21 05:45 97.7 16 97 07/02/21 16:06 2.0 I & O 07/04/21 07/04/21 07/05/21 15:00 23:00 07:00 Intake Total 840 ml 360 ml Balance 840 ml 360 ml Labs: Laboratory Tests Test 07/04/21 21:40 Urine Collection Type Unknown Urine Color Yellow Urine Clarity Cloudy Urine pH 6.0 Urine Specific [place] 1.025 Urine Protein Neg (NEG-TRACE) Urine Glucose (UA) Neg mg/dL (NEG) Urine Ketones (Stick) Trace mg/dL (NEG) Urine Blood Neg (NEG) Urine Nitrite Neg (NEG) Urine Bilirubin Neg (NEG) Urine Urobilinogen Dipstick 1.0 mg/dL (0.2 mg/dL) Urine Leukocyte Esterase Small (NEG) Urine RBC 0 /HPF (0-2) Urine WBC 5-10 /HPF (0-4) Urine Squamous Epithelial Cells Mod /LPF Urine Bacteria Mod /HPF (0-FEW) Current Medications: Meds: Laboratory Tests Test 07/04/21 21:40 Urine Collection Type Unknown Urine Color Yellow Urine Clarity Cloudy Urine pH 6.0 Urine Specific [place] 1.025 Urine Protein Neg Urine Glucose (UA) Neg mg/dL Urine Ketones (Stick) Trace mg/dL Urine Blood Neg Urine Nitrite Neg Urine Bilirubin Neg Urine Urobilinogen Dipstick 1.0 mg/dL Urine Leukocyte Esterase Small Urine RBC 0 /HPF Urine WBC 5-10 /HPF Urine Squamous Epithelial Cells Mod /LPF Urine Bacteria Mod /HPF Current Medications Medications (Trade) Dose Ordered Sig/Anthony Route PRN Reason Start Time Stop Time Status Last Admin Dose Admin Acetaminophen (Tylenol) 650 mg PRN Q6HRS PRN PO MILD PAIN / TEMP > 100.3'F 06/23/21 16:30 06/24/21 20:44 Multi-Ingredient Ointment (Analgesic [place]) 1 [place] PRN QID PRN TP MUSCLE PAIN 06/23/21 16:30 Al Hydroxide/Mg Hydroxide (Mylanta Plus Xs) 15 ml PRN AFTMEALHC PRN PO DYSPEPSIA 06/23/21 16:30 Magnesium Hydroxide (Milk Of Magnesia) 2,400 mg PRN QHS PRN PO CONSTIPATION 06/23/21 16:30 Apixaban (Eliquis) 5 mg BID PO 06/23/21 21:00 07/05/21 08:13 Aripiprazole (Abilify) 7.5 mg DAILY PO 06/24/21 09:00 07/05/21 08:13 Aspirin (Aspirin Chewable) 81 mg DAILY PO 06/24/21 09:00 07/05/21 08:13 Duloxetine HCl (Cymbalta) 90 mg DAILY PO 06/24/21 09:00 07/05/21 08:13 Albuterol/ Ipratropium (Combivent Respimat 20-100 Mcg) 1 puff RTQID INH 06/23/21 20:00 07/04/21 10:23 DC 06/30/21 19:56 Levothyroxine Sodium (Synthroid) 25 mcg DAILY06 PO 06/24/21 06:00 07/05/21 05:16 Lidocaine (Lidoderm) 1 patch DAILY TP 06/24/21 09:00 07/04/21 08:27 Metoprolol Succinate (Toprol Xl) 25 mg DAILY PO 06/24/21 09:00 07/04/21 08:28 Pantoprazole Sodium (Protonix) 40 mg DAILY PO 06/24/21 09:00 07/05/21 08:13 Polyethylene Glycol (miraLAX) 17 gm DAILY PO 06/24/21 09:00 07/05/21 08:17 Quetiapine Fumarate (SEROquel) 50 mg PRN QHS PRN PO sleep 06/23/21 17:00 07/04/21 01:42 Sennosides (Senna) 8.6 mg DAILY PO 06/24/21 09:00 07/05/21 08:13 Sodium Chloride (Saline Mist Nasal) 1 [place] PRN Q4HRS PRN NS nasal dryness 06/23/21 17:00 Trazodone HCl (Desyrel) 50 mg HS PO 06/23/21 21:00 07/04/21 20:03 Divalproex Sodium (Depakote) 1,000 mg BID PO 06/23/21 21:00 07/05/21 08:13 Fluticasone Propionate (Flonase) 2 spray DAILY NS 06/24/21 09:00 07/05/21 08:13 Ketorolac Tromethamine (Acular) 1 drop QID OU 06/23/21 21:00 07/05/21 08:11 Lactulose (Lactulose) 30 gm BID PO 06/23/21 21:00 06/25/21 11:41 DC 06/25/21 08:42 Cetirizine HCl (ZyrTEC) 10 mg DAILY PO 06/24/21 09:00 07/05/21 08:13 Meclizine HCl (Antivert) 25 mg PRN Q4HRS PRN PO vertigo 06/23/21 17:45 Influenza Virus Vaccine Quadrival (Flulaval Quad [id number] Syringe) 0.5 ml ONCE ONCE VAX IM 06/24/21 09:00 06/24/21 09:01 DC 06/24/21 09:38 Miscellaneous (Lidoderm Patch Removal) 1 ea QHS MC 06/23/21 21:00 07/03/21 20:02 Cephalexin HCl (Keflex) 500 mg TID PO 06/25/21 14:00 06/30/21 10:00 DC 06/30/21 08:45 Albuterol/ Ipratropium (Combivent Respimat 20-100 Mcg) 1 puff PRN QID PRN INH SOA 07/04/21 10:15 Vitamin D (Vitamin D3) 1,000 unit DAILY PO 07/04/21 11:15 07/05/21 08:13 Current Medications Medications (Trade) Dose Ordered Sig/Anthony Route PRN Reason Start Time Stop Time Status Last Admin Dose Admin Vitamin D (Vitamin D3) 1,000 unit DAILY PO 07/04/21 11:15 07/05/21 08:13 I have reviewed the current psychotropics carefully including drug interactions. Risk benefit ratio favors no change other than as noted in my dictated progress note. Diagnosis: Problems: (1) Major depressive disorder in partial remission (2) Anxiety disorder, unspecified (3) Impulse control disorder, unspecified CORY MARAVILLA MD Jul 05, 2021 09:01
[2021-07-05] MEDS: LIDOCAINE (700MG/PATCH) PATCH. TP SCH (09:06)
[2021-07-05 15:52] VITALS: BP 96/62
[2021-07-05] MEDS: PATCH REMOVAL. MC SCH (19:56)
[2021-07-05] MEDS: traZODone 50 MG TABLET. PO SCH (19:56)
--- NOTE | 2021-07-05 21:51 | PDOC ---
Exam Note: Bharat Note: Please also refer to the separate dictated note~for this date of service dictated separately.~Patient seen individually. Discussed the patient with Nursing staff reviewed the chart.~Reviewed interim history and current functioning. Reviewed vital signs,~Labs/ Radiology~and current medications noted below. Continue current treatment with the changes noted in the dictated addendum note Assessment: Vital Signs/I&O: Vital Signs Date Time Temp Pulse Resp B/P (MAP) Pulse Ox O2 Delivery O2 Flow Rate FiO2 07/05/21 15:52 96.8 68 16 96/62 (73) 93 07/02/21 16:06 2.0 I & O 07/04/21 07/04/21 07/05/21 15:00 23:00 07:00 Intake Total 840 ml 360 ml Balance 840 ml 360 ml Current Medications: Meds: Current Medications Medications (Trade) Dose Ordered Sig/Anthony Route PRN Reason Start Time Stop Time Status Last Admin Dose Admin Acetaminophen (Tylenol) 650 mg PRN Q6HRS PRN PO MILD PAIN / TEMP > 100.3'F 06/23/21 16:30 06/24/21 20:44 Multi-Ingredient Ointment (Analgesic [place]) 1 [place] PRN QID PRN TP MUSCLE PAIN 06/23/21 16:30 Al Hydroxide/Mg Hydroxide (Mylanta Plus Xs) 15 ml PRN AFTMEALHC PRN PO DYSPEPSIA 06/23/21 16:30 Magnesium Hydroxide (Milk Of Magnesia) 2,400 mg PRN QHS PRN PO CONSTIPATION 06/23/21 16:30 Apixaban (Eliquis) 5 mg BID PO 06/23/21 21:00 07/05/21 19:56 Aripiprazole (Abilify) 7.5 mg DAILY PO 06/24/21 09:00 07/05/21 08:13 Aspirin (Aspirin Chewable) 81 mg DAILY PO 06/24/21 09:00 07/05/21 08:13 Duloxetine HCl (Cymbalta) 90 mg DAILY PO 06/24/21 09:00 07/05/21 08:13 Albuterol/ Ipratropium (Combivent Respimat 20-100 Mcg) 1 puff RTQID INH 06/23/21 20:00 07/04/21 10:23 DC 06/30/21 19:56 Levothyroxine Sodium (Synthroid) 25 mcg DAILY06 PO 06/24/21 06:00 07/05/21 05:16 Lidocaine (Lidoderm) 1 patch DAILY TP 06/24/21 09:00 07/05/21 09:06 Metoprolol Succinate (Toprol Xl) 25 mg DAILY PO 06/24/21 09:00 07/04/21 08:28 Pantoprazole Sodium (Protonix) 40 mg DAILY PO 06/24/21 09:00 07/05/21 08:13 Polyethylene Glycol (miraLAX) 17 gm DAILY PO 06/24/21 09:00 07/05/21 08:17 Quetiapine Fumarate (SEROquel) 50 mg PRN QHS PRN PO sleep 06/23/21 17:00 07/04/21 01:42 Sennosides (Senna) 8.6 mg DAILY PO 06/24/21 09:00 07/05/21 08:13 Sodium Chloride (Saline Mist Nasal) 1 [place] PRN Q4HRS PRN NS nasal dryness 06/23/21 17:00 Trazodone HCl (Desyrel) 50 mg HS PO 06/23/21 21:00 07/05/21 19:56 Divalproex Sodium (Depakote) 1,000 mg BID PO 06/23/21 21:00 07/05/21 19:56 Fluticasone Propionate (Flonase) 2 spray DAILY NS 06/24/21 09:00 07/05/21 08:13 Ketorolac Tromethamine (Acular) 1 drop QID OU 06/23/21 21:00 07/05/21 19:56 Lactulose (Lactulose) 30 gm BID PO 06/23/21 21:00 06/25/21 11:41 DC 06/25/21 08:42 Cetirizine HCl (ZyrTEC) 10 mg DAILY PO 06/24/21 09:00 07/05/21 08:13 Meclizine HCl (Antivert) 25 mg PRN Q4HRS PRN PO vertigo 06/23/21 17:45 Influenza Virus Vaccine Quadrival (Flulaval Quad [id number] Syringe) 0.5 ml ONCE ONCE VAX IM 06/24/21 09:00 06/24/21 09:01 DC 06/24/21 09:38 Miscellaneous (Lidoderm Patch Removal) 1 ea QHS MC 06/23/21 21:00 07/03/21 20:02 Cephalexin HCl (Keflex) 500 mg TID PO 06/25/21 14:00 06/30/21 10:00 DC 06/30/21 08:45 Albuterol/ Ipratropium (Combivent Respimat 20-100 Mcg) 1 puff PRN QID PRN INH SOA 07/04/21 10:15 Vitamin D (Vitamin D3) 1,000 unit DAILY PO 07/04/21 11:15 07/05/21 08:13 I have reviewed the current psychotropics carefully including drug interactions. Risk benefit ratio favors no change other than as noted in my dictated progress note. Diagnosis: Problems: (1) Impulse control disorder, unspecified (2) Anxiety disorder, unspecified (3) Bipolar disorder, current episode mixed, severe, with psychotic features (4) Major depressive disorder in partial remission CORY MARAVILLA MD Jul 05, 2021 21:51
[2021-07-06] MEDS: LEVOTHYROXINE 25 MCG TABLET. PO SCH (05:45)
[2021-07-06 05:48] VITALS: BP 107/68
[2021-07-06 07:05] LABS: ALBUMIN 2.5 g/dL (3.4-5.0); ALBUMIN/GLOBULIN RATIO 0.8 (1.0-1.7); CALCIUM 8.4 mg/dL (8.5-10.1); CREATININE 0.7 mg/dL (0.6-1.0); GFR 82.5; POTASSIUM 4.2 mmol/L (3.5-5.1); TOTAL BILIRUBIN 0.2 mg/dL (0.2-1.0); TOTAL PROTEIN 5.8 g/dL (6.4-8.2)
[2021-07-06 08:10] LABS: BASO % 0 % (0-3); EOS # 0.2 x10^3/uL (0.0-0.7); EOS % 2 % (0-3); HEMATOCRIT 37.6 % (36.0-47.0); HEMOGLOBIN 12.2 g/dL (12.0-15.5); LYMPH # 4.3 x10^3/uL (1.0-4.8); LYMPH % 37 % (24-48); MEAN CORPUSCULAR HEMOGLOBIN 31 pg (25-35); MEAN CORPUSCULAR HGB CONC 33 g/dL (31-37); MEAN CORPUSCULAR VOLUME 96 fL (79-100); MONO # 0.9 x10^3/uL (0.0-1.1); MONO % 7 % (0-9); NEUT # 6.4 x10^3uL (1.8-7.7); NEUT % 54 % (31-73); PLATELET COUNT 205 x10^3/uL (140-400); RED BLOOD COUNT 3.93 x10^6/uL (3.50-5.40); RED CELL DISTRIBUTION WIDTH 13.8 % (11.5-14.5); WHITE BLOOD COUNT 11.9 x10^3/uL (4.0-11.0)
[2021-07-06] MEDS: FLUTICASONE 50MCG/NASAL SPRAY 16GM BOTTLE. NS SCH (09:00)
[2021-07-06] MEDS: POLYETHYLENE GLYCOL 3350 17 GM PACKET. PO SCH (09:00)
[2021-07-06] MEDS: DULoxetine HCL 30 MG CAPSULE.DR PO SCH (09:05)
[2021-07-06] MEDS: ASPIRIN CHEWABLE 81 MG TABLET. PO SCH (09:05)
[2021-07-06] MEDS: PANTOPRAZOLE 40 MG TABLET. PO SCH (09:05)
[2021-07-06] MEDS: LIDOCAINE (700MG/PATCH) PATCH. TP SCH (09:05)
[2021-07-06] MEDS: METOPROLOL SUCC 24HR ER 25 MG TAB.ER.24H. PO SCH (09:06)
[2021-07-06] MEDS: SENNOSIDES 8.6 MG TABLET PO SCH (09:06)
[2021-07-06] MEDS: CETIRIZINE HCL 10 MG TABLET PO SCH (09:06)
[2021-07-06] MEDS: CHOLECALCIFEROL (VITAMIN D3) 1,000 UNIT TABLET PO SCH (09:06)
[2021-07-06] MEDS: ARIPiprazole 5 MG TABLET PO SCH (09:06)
[2021-07-06] MEDS: APIXABAN 5 MG TABLET. PO SCH ×2 (09:06→20:05)
[2021-07-06] MEDS: DIVALPROEX SODIUM 250 MG TABLET.DR. PO SCH ×2 (09:06→20:06)
[2021-07-06] MEDS: KETOROLAC TROMETHAMINE 0.5% OPHTH SOLUTION BOTTLE. OU SCH ×4 (09:07→20:05)
[2021-07-06 16:04] VITALS: BP 123/67
[2021-07-06] MEDS: PATCH REMOVAL. MC SCH (20:05)
[2021-07-06] MEDS: traZODone 50 MG TABLET. PO SCH (20:05)
--- NOTE | 2021-07-06 21:50 | PDOC ---
Exam Note: Bharat Note: Please also refer to the separate dictated note~for this date of service dictated separately.~Patient seen individually. Discussed the patient with Nursing staff reviewed the chart.~Reviewed interim history and current functioning. Reviewed vital signs,~Labs/ Radiology~and current medications noted below. Continue current treatment with the changes noted in the dictated addendum note Assessment: Vital Signs/I&O: Vital Signs Date Time Temp Pulse Resp B/P (MAP) Pulse Ox O2 Delivery O2 Flow Rate FiO2 07/06/21 16:04 97.2 77 16 123/67 (85) 99 07/06/21 05:48 Nasal Cannula 2.0 I & O 07/05/21 07/05/21 07/06/21 15:00 23:00 07:00 Intake Total 780 ml 360 ml Balance 780 ml 360 ml Labs: Laboratory Tests Test 07/06/21 06:13 White Blood Count 11.9 x10^3/uL (4.0-11.0) H Red Blood Count 3.93 x10^6/uL (3.50-5.40) Hemoglobin 12.2 g/dL (12.0-15.5) Hematocrit 37.6 % (36.0-47.0) Mean Corpuscular Volume 96 fL (79-100) Mean Corpuscular Hemoglobin 31 pg (25-35) Mean Corpuscular Hemoglobin Concent 33 g/dL (31-37) Red Cell Distribution Width 13.8 % (11.5-14.5) Platelet Count 205 x10^3/uL (140-400) Neutrophils (%) (Auto) 54 % (31-73) Lymphocytes (%) (Auto) 37 % (24-48) Monocytes (%) (Auto) 7 % (0-9) Eosinophils (%) (Auto) 2 % (0-3) Basophils (%) (Auto) 0 % (0-3) Neutrophils # (Auto) 6.4 x10^3uL (1.8-7.7) Lymphocytes # (Auto) 4.3 x10^3/uL (1.0-4.8) Monocytes # (Auto) 0.9 x10^3/uL (0.0-1.1) Eosinophils # (Auto) 0.2 x10^3/uL (0.0-0.7) Basophils # (Auto) 0.0 x10^3/uL (0.0-0.2) Sodium Level 142 mmol/L (136-145) Potassium Level 4.2 mmol/L (3.5-5.1) Chloride Level 107 mmol/L (98-107) Carbon Dioxide Level 30 mmol/L (21-32) Anion Gap 5 (6-14) L Blood Urea Nitrogen 15 mg/dL (7-20) Creatinine 0.7 mg/dL (0.6-1.0) Estimated GFR (Cockcroft-Gault) 82.5 BUN/Creatinine Ratio 21 (6-20) H Glucose Level 82 mg/dL (70-99) Calcium Level 8.4 mg/dL (8.5-10.1) L Total Bilirubin 0.2 mg/dL (0.2-1.0) Aspartate Amino Transferase (AST) 9 U/L (15-37) L Alanine Aminotransferase (ALT) 9 U/L (14-59) L Alkaline Phosphatase 83 U/L (46-116) Ammonia 31 mcmol/L (11-34) Total Protein 5.8 g/dL (6.4-8.2) L Albumin 2.5 g/dL (3.4-5.0) L Albumin/Globulin Ratio 0.8 (1.0-1.7) L Current Medications: Meds: Laboratory Tests Test 07/06/21 06:13 White Blood Count 11.9 x10^3/uL Red Blood Count 3.93 x10^6/uL Hemoglobin 12.2 g/dL Hematocrit 37.6 % Mean Corpuscular Volume 96 fL Mean Corpuscular Hemoglobin 31 pg Mean Corpuscular Hemoglobin Concent 33 g/dL Red Cell Distribution Width 13.8 % Platelet Count 205 x10^3/uL Neutrophils (%) (Auto) 54 % Lymphocytes (%) (Auto) 37 % Monocytes (%) (Auto) 7 % Eosinophils (%) (Auto) 2 % Basophils (%) (Auto) 0 % Neutrophils # (Auto) 6.4 x10^3uL Lymphocytes # (Auto) 4.3 x10^3/uL Monocytes # (Auto) 0.9 x10^3/uL Eosinophils # (Auto) 0.2 x10^3/uL Basophils # (Auto) 0.0 x10^3/uL Sodium Level 142 mmol/L Potassium Level 4.2 mmol/L Chloride Level 107 mmol/L Carbon Dioxide Level 30 mmol/L Anion Gap 5 Blood Urea Nitrogen 15 mg/dL Creatinine 0.7 mg/dL Estimated GFR (Cockcroft-Gault) 82.5 BUN/Creatinine Ratio 21 Glucose Level 82 mg/dL Calcium Level 8.4 mg/dL Total Bilirubin 0.2 mg/dL Aspartate Amino Transf (AST/SGOT) 9 U/L Alanine Aminotransferase (ALT/SGPT) 9 U/L Alkaline Phosphatase 83 U/L Ammonia 31 mcmol/L Total Protein 5.8 g/dL Albumin 2.5 g/dL Albumin/Globulin Ratio 0.8 Current Medications Medications (Trade) Dose Ordered Sig/Anthony Route PRN Reason Start Time Stop Time Status Last Admin Dose Admin Acetaminophen (Tylenol) 650 mg PRN Q6HRS PRN PO MILD PAIN / TEMP > 100.3'F 06/23/21 16:30 06/24/21 20:44 Multi-Ingredient Ointment (Analgesic [place]) 1 [place] PRN QID PRN TP MUSCLE PAIN 06/23/21 16:30 Al Hydroxide/Mg Hydroxide (Mylanta Plus Xs) 15 ml PRN AFTMEALHC PRN PO DYSPEPSIA 06/23/21 16:30 Magnesium Hydroxide (Milk Of Magnesia) 2,400 mg PRN QHS PRN PO CONSTIPATION 06/23/21 16:30 Apixaban (Eliquis) 5 mg BID PO 06/23/21 21:00 07/06/21 20:05 Aripiprazole (Abilify) 7.5 mg DAILY PO 06/24/21 09:00 07/06/21 09:06 Aspirin (Aspirin Chewable) 81 mg DAILY PO 06/24/21 09:00 07/06/21 09:05 Duloxetine HCl (Cymbalta) 90 mg DAILY PO 06/24/21 09:00 07/06/21 09:05 Albuterol/ Ipratropium (Combivent Respimat 20-100 Mcg) 1 puff RTQID INH 06/23/21 20:00 07/04/21 10:23 DC 06/30/21 19:56 Levothyroxine Sodium (Synthroid) 25 mcg DAILY06 PO 06/24/21 06:00 07/06/21 05:45 Lidocaine (Lidoderm) 1 patch DAILY TP 06/24/21 09:00 07/06/21 09:05 Metoprolol Succinate (Toprol Xl) 25 mg DAILY PO 06/24/21 09:00 07/06/21 09:06 Pantoprazole Sodium (Protonix) 40 mg DAILY PO 06/24/21 09:00 07/06/21 09:05 Polyethylene Glycol (miraLAX) 17 gm DAILY PO 06/24/21 09:00 07/05/21 08:17 Quetiapine Fumarate (SEROquel) 50 mg PRN QHS PRN PO sleep 06/23/21 17:00 07/04/21 01:42 Sennosides (Senna) 8.6 mg DAILY PO 06/24/21 09:00 07/06/21 09:06 Sodium Chloride (Saline Mist Nasal) 1 [place] PRN Q4HRS PRN NS nasal dryness 06/23/21 17:00 Trazodone HCl (Desyrel) 50 mg HS PO 06/23/21 21:00 07/06/21 20:05 Divalproex Sodium (Depakote) 1,000 mg BID PO 06/23/21 21:00 07/06/21 20:06 Fluticasone Propionate (Flonase) 2 spray DAILY NS 06/24/21 09:00 07/06/21 09:00 Ketorolac Tromethamine (Acular) 1 drop QID OU 06/23/21 21:00 07/06/21 20:05 Lactulose (Lactulose) 30 gm BID PO 06/23/21 21:00 06/25/21 11:41 DC 06/25/21 08:42 Cetirizine HCl (ZyrTEC) 10 mg DAILY PO 06/24/21 09:00 07/06/21 09:06 Meclizine HCl (Antivert) 25 mg PRN Q4HRS PRN PO vertigo 06/23/21 17:45 Influenza Virus Vaccine Quadrival (Flulaval Quad [id number] Syringe) 0.5 ml ONCE ONCE VAX IM 06/24/21 09:00 06/24/21 09:01 DC 06/24/21 09:38 Miscellaneous (Lidoderm Patch Removal) 1 ea QHS MC 06/23/21 21:00 07/03/21 20:02 Cephalexin HCl (Keflex) 500 mg TID PO 06/25/21 14:00 06/30/21 10:00 DC 06/30/21 08:45 Albuterol/ Ipratropium (Combivent Respimat 20-100 Mcg) 1 puff PRN QID PRN INH SOA 07/04/21 10:15 Vitamin D (Vitamin D3) 1,000 unit DAILY PO 07/04/21 11:15 07/06/21 09:06 I have reviewed the current psychotropics carefully including drug interactions. Risk benefit ratio favors no change other than as noted in my dictated progress note. Diagnosis: Problems: (1) Impulse control disorder, unspecified (2) Anxiety disorder, unspecified (3) Bipolar disorder, current episode mixed, severe, with psychotic features (4) Major depressive disorder in partial remission CORY MARAVILLA MD Jul 06, 2021 21:50
[2021-07-07] MEDS: LEVOTHYROXINE 25 MCG TABLET. PO SCH (05:26)
[2021-07-07 05:33] VITALS: BP 92/63
[2021-07-07] MEDS: KETOROLAC TROMETHAMINE 0.5% OPHTH SOLUTION BOTTLE. OU SCH ×4 (08:29→19:59)
[2021-07-07] MEDS: FLUTICASONE 50MCG/NASAL SPRAY 16GM BOTTLE. NS SCH (08:30)
[2021-07-07] MEDS: DIVALPROEX SODIUM 250 MG TABLET.DR. PO SCH ×2 (08:30→19:59)
[2021-07-07] MEDS: APIXABAN 5 MG TABLET. PO SCH ×2 (08:30→19:59)
[2021-07-07] MEDS: DULoxetine HCL 30 MG CAPSULE.DR PO SCH (08:30)
[2021-07-07] MEDS: CETIRIZINE HCL 10 MG TABLET PO SCH (08:31)
[2021-07-07] MEDS: METOPROLOL SUCC 24HR ER 25 MG TAB.ER.24H. PO SCH (08:31)
[2021-07-07] MEDS: PANTOPRAZOLE 40 MG TABLET. PO SCH (08:31)
[2021-07-07] MEDS: CHOLECALCIFEROL (VITAMIN D3) 1,000 UNIT TABLET PO SCH (08:31)
[2021-07-07] MEDS: ASPIRIN CHEWABLE 81 MG TABLET. PO SCH (08:31)
[2021-07-07] MEDS: ARIPiprazole 5 MG TABLET PO SCH (08:31)
[2021-07-07] MEDS: SENNOSIDES 8.6 MG TABLET PO SCH (08:31)
[2021-07-07] MEDS: POLYETHYLENE GLYCOL 3350 17 GM PACKET. PO SCH (08:32)
--- NOTE | 2021-07-07 09:14 | PDOC ---
Exam Note: Bharat Note: This note is a late entry for 07/04/2021 covers elements not covered in my initial note. Subjective: The patient was seen individually in the evening of 07/04/2021 with Beatris QUARLES, discussed and reviewed the chart. The patient slept 6 hours previous night. She has been withdrawn. I met with the patient in her room. Review of Systems: Ambulation impaired with walker. No CV, , pulmonary, eye, ENT system symptoms on review. Mental Status Exam: The patient is reasonably oriented. Speech is coherent. Abstraction fair. Computation impaired. Language function intact. Mood and affect somewhat withdrawn. She had many questions on discharge plans. She felt she was going to be discharged today and I explained to her that we will look in at some time next week. Social service staff is coordinating this. Laboratory Data: Reviewed. 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 Anxiety disorder unspecified. Plan: Continue psychotropics from initial note. Assessment: Vital Signs/I&O: Vital Signs Date Time Temp Pulse Resp B/P (MAP) Pulse Ox O2 Delivery O2 Flow Rate FiO2 07/07/21 08:31 64 92/63 07/07/21 05:33 97.5 18 90 Room Air 07/06/21 05:48 2.0 I & O 0 07/06/21 07/06/21 07/07/21 15:00 23:00 07:00 Intake Total 600 ml 360 ml Balance 600 ml 360 ml Current Medications: Meds: Current Medications Medications (Trade) Dose Ordered Sig/Anthony Route PRN Reason Start Time Stop Time Status Last Admin Dose Admin Acetaminophen (Tylenol) 650 mg PRN Q6HRS PRN PO MILD PAIN / TEMP > 100.3'F 06/23/21 16:30 06/24/21 20:44 Multi-Ingredient Ointment (Analgesic [place]) 1 [place] PRN QID PRN TP MUSCLE PAIN 06/23/21 16:30 Al Hydroxide/Mg Hydroxide (Mylanta Plus Xs) 15 ml PRN AFTMEALHC PRN PO DYSPEPSIA 06/23/21 16:30 Magnesium Hydroxide (Milk Of Magnesia) 2,400 mg PRN QHS PRN PO CONSTIPATION 06/23/21 16:30 07/07/21 05:26 Apixaban (Eliquis) 5 mg BID PO 06/23/21 21:00 07/07/21 08:30 Aripiprazole (Abilify) 7.5 mg DAILY PO 06/24/21 09:00 07/07/21 08:31 Aspirin (Aspirin Chewable) 81 mg DAILY PO 06/24/21 09:00 07/07/21 08:31 Duloxetine HCl (Cymbalta) 90 mg DAILY PO 06/24/21 09:00 07/07/21 08:30 Albuterol/ Ipratropium (Combivent Respimat 20-100 Mcg) 1 puff RTQID INH 06/23/21 20:00 07/04/21 10:23 DC 06/30/21 19:56 Levothyroxine Sodium (Synthroid) 25 mcg DAILY06 PO 06/24/21 06:00 07/07/21 05:26 Lidocaine (Lidoderm) 1 patch DAILY TP 06/24/21 09:00 07/06/21 09:05 Metoprolol Succinate (Toprol Xl) 25 mg DAILY PO 06/24/21 09:00 07/06/21 09:06 Pantoprazole Sodium (Protonix) 40 mg DAILY PO 06/24/21 09:00 07/07/21 08:31 Polyethylene Glycol (miraLAX) 17 gm DAILY PO 06/24/21 09:00 07/07/21 08:32 Quetiapine Fumarate (SEROquel) 50 mg PRN QHS PRN PO sleep 06/23/21 17:00 07/04/21 01:42 Sennosides (Senna) 8.6 mg DAILY PO 06/24/21 09:00 07/07/21 08:31 Sodium Chloride (Saline Mist Nasal) 1 [place] PRN Q4HRS PRN NS nasal dryness 06/23/21 17:00 Trazodone HCl (Desyrel) 50 mg HS PO 06/23/21 21:00 07/06/21 20:05 Divalproex Sodium (Depakote) 1,000 mg BID PO 06/23/21 21:00 07/07/21 08:30 Fluticasone Propionate (Flonase) 2 spray DAILY NS 06/24/21 09:00 07/07/21 08:30 Ketorolac Tromethamine (Acular) 1 drop QID OU 06/23/21 21:00 07/07/21 08:29 Lactulose (Lactulose) 30 gm BID PO 06/23/21 21:00 06/25/21 11:41 DC 06/25/21 08:42 Cetirizine HCl (ZyrTEC) 10 mg DAILY PO 06/24/21 09:00 07/07/21 08:31 Meclizine HCl (Antivert) 25 mg PRN Q4HRS PRN PO vertigo 06/23/21 17:45 Influenza Virus Vaccine Quadrival (Flulaval Quad Syringe) 0.5 ml ONCE ONCE VAX IM 06/24/21 09:00 06/24/21 09:01 DC 06/24/21 09:38 Miscellaneous (Lidoderm Patch Removal) 1 ea QHS MC 06/23/21 21:00 07/03/21 20:02 Cephalexin HCl (Keflex) 500 mg TID PO 06/25/21 14:00 06/30/21 10:00 DC 06/30/21 08:45 Albuterol/ Ipratropium (Combivent Respimat 20-100 Mcg) 1 puff PRN QID PRN INH SOA 07/04/21 10:15 Vitamin D (Vitamin D3) 1,000 unit DAILY PO 07/04/21 11:15 07/07/21 08:31 I have reviewed the current psychotropics carefully including drug interactions. Risk benefit ratio favors no change other than as noted in my dictated progress note. Diagnosis: Problems: (1) Impulse control disorder, unspecified (2) Anxiety disorder, unspecified (3) Major depressive disorder in partial remission CORY MARAVILLA MD Jul 07, 2021 09:14
[2021-07-07] MEDS: LIDOCAINE (700MG/PATCH) PATCH. TP SCH (09:31)
--- NOTE | 2021-07-07 10:00 | PDOC ---
Exam Note: Bharat Note: This note is a late entry for 07/05/2021 covers elements not covered in my initial note. Subjective: The patient was seen individually in the evening of 07/05/2021 with Gala QUARLES, discussed and reviewed the chart. The patient slept 4-1/4 hours previous night. She is withdrawn. Again I met with the patient in her room. She has been fairly appropriate on the unit. She does spend time in her room reading a book and when I questioned her on what she was doing she was able to remember the gist of this. Review of Systems: Ambulation impaired with walker. No CV, , pulmonary, eye, ENT system symptoms on review. Mental Status Exam: The patient is reasonably oriented. She again appeared somewhat confused, was asking that she was planning to be discharged today. I explained to her that today was Tuesday. We were looking at discharge next week. She was a little forgetful about this but otherwise appropriate. Abstraction fair. Computation impaired. Language function intact. Mood and affect somewhat withdrawn. Laboratory Data: Reviewed. 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 Anxiety disorder unspecified. Plan: Continue psychotropics from initial note. Assessment: Vital Signs/I&O: Vital Signs Date Time Temp Pulse Resp B/P (MAP) Pulse Ox O2 Delivery O2 Flow Rate FiO2 07/07/21 08:31 64 92/63 07/07/21 05:33 97.5 18 90 Room Air 07/06/21 05:48 2.0 I & O 07/06/21 07/06/21 07/07/21 15:00 23:00 07:00 Intake Total 600 ml 360 ml Balance 600 ml 360 ml Current Medications: Meds: Current Medications Medications (Trade) Dose Ordered Sig/Anthony Route PRN Reason Start Time Stop Time Status Last Admin Dose Admin Acetaminophen (Tylenol) 650 mg PRN Q6HRS PRN PO MILD PAIN / TEMP > 100.3'F 06/23/21 16:30 06/24/21 20:44 Multi-Ingredient Ointment (Analgesic [place]) 1 [place] PRN QID PRN TP MUSCLE PAIN 06/23/21 16:30 Al Hydroxide/Mg Hydroxide (Mylanta Plus Xs) 15 ml PRN AFTMEALHC PRN PO DYSPEPSIA 06/23/21 16:30 Magnesium Hydroxide (Milk Of Magnesia) 2,400 mg PRN QHS PRN PO CONSTIPATION 06/23/21 16:30 07/07/21 05:26 Apixaban (Eliquis) 5 mg BID PO 06/23/21 21:00 07/07/21 08:30 Aripiprazole (Abilify) 7.5 mg DAILY PO 06/24/21 09:00 07/07/21 08:31 Aspirin (Aspirin Chewable) 81 mg DAILY PO 06/24/21 09:00 07/07/21 08:31 Duloxetine HCl (Cymbalta) 90 mg DAILY PO 06/24/21 09:00 07/07/21 08:30 Albuterol/ Ipratropium (Combivent Respimat 20-100 Mcg) 1 puff RTQID INH 06/23/21 20:00 07/04/21 10:23 DC 06/30/21 19:56 Levothyroxine Sodium (Synthroid) 25 mcg DAILY06 PO 06/24/21 06:00 07/07/21 05:26 Lidocaine (Lidoderm) 1 patch DAILY TP 06/24/21 09:00 07/07/21 09:31 Metoprolol Succinate (Toprol Xl) 25 mg DAILY PO 06/24/21 09:00 07/06/21 09:06 Pantoprazole Sodium (Protonix) 40 mg DAILY PO 06/24/21 09:00 07/07/21 08:31 Polyethylene Glycol (miraLAX) 17 gm DAILY PO 06/24/21 09:00 07/07/21 08:32 Quetiapine Fumarate (SEROquel) 50 mg PRN QHS PRN PO sleep 06/23/21 17:00 07/04/21 01:42 Sennosides (Senna) 8.6 mg DAILY PO 06/24/21 09:00 07/07/21 08:31 Sodium Chloride (Saline Mist Nasal) 1 [place] PRN Q4HRS PRN NS nasal dryness 06/23/21 17:00 Trazodone HCl (Desyrel) 50 mg HS PO 06/23/21 21:00 07/06/21 20:05 Divalproex Sodium (Depakote) 1,000 mg BID PO 06/23/21 21:00 07/07/21 08:30 Fluticasone Propionate (Flonase) 2 spray DAILY NS 06/24/21 09:00 07/07/21 08:30 Ketorolac Tromethamine (Acular) 1 drop QID OU 06/23/21 21:00 07/07/21 08:29 Lactulose (Lactulose) 30 gm BID PO 06/23/21 21:00 06/25/21 11:41 DC 06/25/21 08:42 Cetirizine HCl (ZyrTEC) 10 mg DAILY PO 06/24/21 09:00 07/07/21 08:31 Meclizine HCl (Antivert) 25 mg PRN Q4HRS PRN PO vertigo 06/23/21 17:45 Influenza Virus Vaccine Quadrival (Flulaval Quad Syringe) 0.5 ml ONCE ONCE VAX IM 06/24/21 09:00 06/24/21 09:01 DC 06/24/21 09:38 Miscellaneous (Lidoderm Patch Removal) 1 ea QHS MC 06/23/21 21:00 07/03/21 20:02 Cephalexin HCl (Keflex) 500 mg TID PO 06/25/21 14:00 06/30/21 10:00 DC 06/30/21 08:45 Albuterol/ Ipratropium (Combivent Respimat 20-100 Mcg) 1 puff PRN QID PRN INH SOA 07/04/21 10:15 Vitamin D (Vitamin D3) 1,000 unit DAILY PO 07/04/21 11:15 07/07/21 08:31 I have reviewed the current psychotropics carefully including drug interactions. Risk benefit ratio favors no change other than as noted in my dictated progress note. Diagnosis: Problems: (1) Impulse control disorder, unspecified (2) Anxiety disorder, unspecified (3) Major depressive disorder in partial remission CORY MARAVILLA MD Jul 07, 2021 10:00
[2021-07-07 15:27] VITALS: BP 96/6
[2021-07-07 15:35] LABS: BILIRUBIN,URINE NEG (NEG); CLARITY,URINE CLEAR; COLOR,URINE YELLOW; GLUCOSE,URINE NEG (NEG)
[2021-07-07 15:36] LABS: BACTERIA,URINE FEW /HPF (0-FEW); NITRITE,URINE NEG (NEG); RBC,URINE OCC /HPF (0-2); SQUAMOUS EPITHELIAL CELL,UR MANY /LPF
[2021-07-07] MEDS: PATCH REMOVAL. MC SCH (19:59)
[2021-07-07] MEDS: traZODone 50 MG TABLET. PO SCH (19:59)
--- NOTE | 2021-07-07 21:50 | PDOC ---
Exam Note: Bharat Note: Please also refer to the separate dictated note~for this date of service dictated separately.~Patient seen individually. Discussed the patient with Nursing staff reviewed the chart.~Reviewed interim history and current functioning. Reviewed vital signs,~Labs/ Radiology~and current medications noted below. Continue current treatment with the changes noted in the dictated addendum note Assessment: Vital Signs/I&O: Vital Signs Date Time Temp Pulse Resp B/P (MAP) Pulse Ox O2 Delivery O2 Flow Rate FiO2 07/07/21 15:27 97.8 63 16 96/6 (36) 93 Room Air 07/06/21 05:48 2.0 I & O 07/06/21 07/06/21 07/07/21 15:00 23:00 07:00 Intake Total 600 ml 360 ml Balance 600 ml 360 ml Labs: Laboratory Tests Test 07/07/21 05:30 07/07/21 15:15 SARS-CoV-2 (PCR) Not detected (NOT DETECTD) Urine Collection Type Clean catch Urine Color Yellow Urine Clarity Clear Urine pH 5.5 Urine Specific [place] 1.025 Urine Protein Neg (NEG-TRACE) Urine Glucose (UA) Neg mg/dL (NEG) Urine Ketones (Stick) 15 mg/dL (NEG) Urine Blood Neg (NEG) Urine Nitrite Neg (NEG) Urine Bilirubin Neg (NEG) Urine Urobilinogen Dipstick 1.0 mg/dL (0.2 mg/dL) Urine Leukocyte Esterase Trace (NEG) Urine RBC Occ /HPF (0-2) Urine WBC 11-20 /HPF (0-4) Urine Squamous Epithelial Cells Many /LPF Urine Bacteria Few /HPF (0-FEW) Current Medications: Meds: Laboratory Tests Test 07/07/21 05:30 07/07/21 15:15 Coronavirus (COVID-19)(PCR) Not detected Urine Collection Type Clean catch Urine Color Yellow Urine Clarity Clear Urine pH 5.5 Urine Specific [place] 1.025 Urine Protein Neg Urine Glucose (UA) Neg mg/dL Urine Ketones (Stick) 15 mg/dL Urine Blood Neg Urine Nitrite Neg Urine Bilirubin Neg Urine Urobilinogen Dipstick 1.0 mg/dL Urine Leukocyte Esterase Trace Urine RBC Occ /HPF Urine WBC 11-20 /HPF Urine Squamous Epithelial Cells Many /LPF Urine Bacteria Few /HPF Current Medications Medications (Trade) Dose Ordered Sig/Anthony Route PRN Reason Start Time Stop Time Status Last Admin Dose Admin Acetaminophen (Tylenol) 650 mg PRN Q6HRS PRN PO MILD PAIN / TEMP > 100.3'F 06/23/21 16:30 06/24/21 20:44 Multi-Ingredient Ointment (Analgesic [place]) 1 [place] PRN QID PRN TP MUSCLE PAIN 06/23/21 16:30 Al Hydroxide/Mg Hydroxide (Mylanta Plus Xs) 15 ml PRN AFTMEALHC PRN PO DYSPEPSIA 06/23/21 16:30 Magnesium Hydroxide (Milk Of Magnesia) 2,400 mg PRN QHS PRN PO CONSTIPATION 06/23/21 16:30 07/07/21 05:26 Apixaban (Eliquis) 5 mg BID PO 06/23/21 21:00 07/07/21 19:59 Aripiprazole (Abilify) 7.5 mg DAILY PO 06/24/21 09:00 07/07/21 08:31 Aspirin (Aspirin Chewable) 81 mg DAILY PO 06/24/21 09:00 07/07/21 08:31 Duloxetine HCl (Cymbalta) 90 mg DAILY PO 06/24/21 09:00 07/07/21 08:30 Albuterol/ Ipratropium (Combivent Respimat 20-100 Mcg) 1 puff RTQID INH 06/23/21 20:00 07/04/21 10:23 DC 06/30/21 19:56 Levothyroxine Sodium (Synthroid) 25 mcg DAILY06 PO 06/24/21 06:00 07/07/21 05:26 Lidocaine (Lidoderm) 1 patch DAILY TP 06/24/21 09:00 07/07/21 09:31 Metoprolol Succinate (Toprol Xl) 25 mg DAILY PO 06/24/21 09:00 07/06/21 09:06 Pantoprazole Sodium (Protonix) 40 mg DAILY PO 06/24/21 09:00 07/07/21 08:31 Polyethylene Glycol (miraLAX) 17 gm DAILY PO 06/24/21 09:00 07/07/21 08:32 Quetiapine Fumarate (SEROquel) 50 mg PRN QHS PRN PO sleep 06/23/21 17:00 07/04/21 01:42 Sennosides (Senna) 8.6 mg DAILY PO 06/24/21 09:00 07/07/21 08:31 Sodium Chloride (Saline Mist Nasal) 1 [place] PRN Q4HRS PRN NS nasal dryness 06/23/21 17:00 Trazodone HCl (Desyrel) 50 mg HS PO 06/23/21 21:00 07/07/21 19:59 Divalproex Sodium (Depakote) 1,000 mg BID PO 06/23/21 21:00 07/07/21 19:59 Fluticasone Propionate (Flonase) 2 spray DAILY NS 06/24/21 09:00 07/07/21 08:30 Ketorolac Tromethamine (Acular) 1 drop QID OU 06/23/21 21:00 07/07/21 19:59 Lactulose (Lactulose) 30 gm BID PO 06/23/21 21:00 06/25/21 11:41 DC 06/25/21 08:42 Cetirizine HCl (ZyrTEC) 10 mg DAILY PO 06/24/21 09:00 07/07/21 08:31 Meclizine HCl (Antivert) 25 mg PRN Q4HRS PRN PO vertigo 06/23/21 17:45 Influenza Virus Vaccine Quadrival (Flulaval Quad [id number] Syringe) 0.5 ml ONCE ONCE VAX IM 06/24/21 09:00 06/24/21 09:01 DC 06/24/21 09:38 Miscellaneous (Lidoderm Patch Removal) 1 ea QHS MC 06/23/21 21:00 07/07/21 19:59 Cephalexin HCl (Keflex) 500 mg TID PO 06/25/21 14:00 06/30/21 10:00 DC 06/30/21 08:45 Albuterol/ Ipratropium (Combivent Respimat 20-100 Mcg) 1 puff PRN QID PRN INH SOA 07/04/21 10:15 Vitamin D (Vitamin D3) 1,000 unit DAILY PO 07/04/21 11:15 07/07/21 08:31 I have reviewed the current psychotropics carefully including drug interactions. Risk benefit ratio favors no change other than as noted in my dictated progress note. Diagnosis: Problems: (1) Impulse control disorder, unspecified (2) Anxiety disorder, unspecified (3) Major depressive disorder in partial remission CORY MARAVILLA MD Jul 07, 2021 21:50
[2021-07-08] MEDS: LEVOTHYROXINE 25 MCG TABLET. PO SCH (04:50)
[2021-07-08 06:23] VITALS: BP 87/45
[2021-07-08] MEDS: FLUTICASONE 50MCG/NASAL SPRAY 16GM BOTTLE. NS SCH (08:51)
[2021-07-08] MEDS: CHOLECALCIFEROL (VITAMIN D3) 1,000 UNIT TABLET PO SCH (08:52)
[2021-07-08] MEDS: ASPIRIN CHEWABLE 81 MG TABLET. PO SCH (08:52)
[2021-07-08] MEDS: CETIRIZINE HCL 10 MG TABLET PO SCH (08:52)
[2021-07-08] MEDS: APIXABAN 5 MG TABLET. PO SCH ×2 (08:53→19:33)
[2021-07-08] MEDS: METOPROLOL SUCC 24HR ER 25 MG TAB.ER.24H. PO SCH (08:53)
[2021-07-08] MEDS: DULoxetine HCL 30 MG CAPSULE.DR PO SCH (08:53)
[2021-07-08] MEDS: DIVALPROEX SODIUM 250 MG TABLET.DR. PO SCH ×2 (08:53→19:33)
[2021-07-08] MEDS: PANTOPRAZOLE 40 MG TABLET. PO SCH (08:54)
[2021-07-08] MEDS: SENNOSIDES 8.6 MG TABLET PO SCH (08:54)
[2021-07-08] MEDS: KETOROLAC TROMETHAMINE 0.5% OPHTH SOLUTION BOTTLE. OU SCH ×4 (08:54→19:33)
[2021-07-08] MEDS: POLYETHYLENE GLYCOL 3350 17 GM PACKET. PO SCH (08:54)
[2021-07-08] MEDS: ARIPiprazole 5 MG TABLET PO SCH (08:54)
[2021-07-08] MEDS: LIDOCAINE (700MG/PATCH) PATCH. TP SCH (09:00)
[2021-07-08 09:07] VITALS: BP 115/59
[2021-07-08 15:44] VITALS: BP 90/60
--- NOTE | 2021-07-08 17:34 | RAD ---
EXAM: Left lower extremity venous Doppler sonogram. HISTORY: Pain and swelling. TECHNIQUE: Nicolas scale and color Doppler sonographic evaluation of the left lower extremity veins with spectral waveform analysis was performed. FINDINGS: The exam is extremely limited due to patient body habitus. The calf veins are not seen. The re is normal color flow, normal compressibility and there are normal spectral waveforms in the remain shira of the lower extremity veins. IMPRESSION: No Doppler evidence of lower extremity deep venous thrombosis, with nonassessment of the calf veins due to patient body habitus. Electronically signed by: Rachael Guadarrama MD (07/08/2021 5:32 PM) [id number]
[2021-07-08] MEDS: traZODone 50 MG TABLET. PO SCH (19:32)
[2021-07-08] MEDS: PATCH REMOVAL. MC SCH (19:33)
--- NOTE | 2021-07-09 00:14 | PN ---
DATE: 07/06/2021 PSYCHIATRIC PROGRESS NOTE This is a late entry, date of service 07/06, covers elements not covered in my initial note 07/06. Discussed with WILLAM Vazquez. SUBJECTIVE: The patient appeared more confused previous evening. Check of her labs and ammonia are unremarkable. Otherwise, she has been cooperative, not refusing cares and no overt delusions noted like they were at the time of her admission. I met with in her room. REVIEW OF SYSTEMS: Ambulation impaired with walker. No CV, , pulmonary, eye, ENT system symptoms on review. MENTAL STATUS EXAMINATION: The patient is oriented to herself, situation. Speech is coherent. Abstraction fair. Computation impaired. Language function intact. Mood and affect is improved, still slightly anxious. LABORATORY DATA: Reviewed. IMPRESSION: Major depressive disorder with history of psychotic features, in partial remission; mild cognitive impairment; anxiety disorder, unspecified. PLAN: Continue current psychotropics mentioned in my initial note including Cymbalta being augmented with Abilify 7.5 mg a day and she is on Depakote DR 500 mg b.i.d., trazodone at bedtime p.r.n. insomnia, Seroquel p.r.n. Adjust further as clinically indicated. MMA/STD DR: CHRISTINE/karel TID: [id number]
--- NOTE | 2021-07-09 00:16 | PN ---
DATE: 07/07/2021 PSYCHIATRIC PROGRESS NOTE This is a late entry of 07/07 covers the elements not covered in my initial note of 07/07. SUBJECTIVE: I met with the patient in the evening in her room. Discussed with Florencia Santos RN. Overall, patient is doing reasonably well, although she is somewhat withdrawn, appears a little confused at time. We will repeat a UA to make sure UTI is not contributing to this. REVIEW OF SYSTEMS: Ambulation impaired with walker. No CV, , pulmonary, eye system symptoms on review. MENTAL STATUS EXAMINATION: The patient is reasonably oriented. Speech has some latency. Abstraction fair. Computation impaired. Language function intact. Attention span fair. Mood and affect appears euthymic, slightly anxious. No suicidal or homicidal ideation. LABORATORY DATA: Reviewed. IMPRESSION: Major depressive disorder, recurrent with history of psychotic features; anxiety disorder, unspecified, mild cognitive impairment. Rest unchanged from admission. PLAN: Continue current psychotropics mentioned in my initial note. Cymbalta 90 mg a day being augmented with Abilify 7.5 mg a day. Depakote delayed release 500 mg b.i.d., trazodone for insomnia and Seroquel p.r.n. CHRISTINE/VICTORIA DR: Simba TID: [id number]
[2021-07-09 05:36] VITALS: BP 102/67
[2021-07-09] MEDS: LEVOTHYROXINE 25 MCG TABLET. PO SCH (06:00)
[2021-07-09] MEDS: DULoxetine HCL 30 MG CAPSULE.DR PO SCH (07:46)
[2021-07-09] MEDS: ARIPiprazole 5 MG TABLET PO SCH (07:47)
[2021-07-09] MEDS: DIVALPROEX SODIUM 250 MG TABLET.DR. PO SCH ×2 (07:47→21:47)
[2021-07-09] MEDS: SENNOSIDES 8.6 MG TABLET PO SCH (07:47)
[2021-07-09] MEDS: APIXABAN 5 MG TABLET. PO SCH ×2 (07:47→21:47)
[2021-07-09] MEDS: CHOLECALCIFEROL (VITAMIN D3) 1,000 UNIT TABLET PO SCH (07:47)
[2021-07-09] MEDS: ASPIRIN CHEWABLE 81 MG TABLET. PO SCH (07:48)
[2021-07-09] MEDS: PANTOPRAZOLE 40 MG TABLET. PO SCH (07:48)
[2021-07-09] MEDS: METOPROLOL SUCC 24HR ER 25 MG TAB.ER.24H. PO SCH (07:48)
[2021-07-09] MEDS: CETIRIZINE HCL 10 MG TABLET PO SCH (07:48)
[2021-07-09] MEDS: FLUTICASONE 50MCG/NASAL SPRAY 16GM BOTTLE. NS SCH (07:49)
[2021-07-09] MEDS: LIDOCAINE (700MG/PATCH) PATCH. TP SCH (07:49)
[2021-07-09] MEDS: POLYETHYLENE GLYCOL 3350 17 GM PACKET. PO SCH (07:49)
[2021-07-09] MEDS: KETOROLAC TROMETHAMINE 0.5% OPHTH SOLUTION BOTTLE. OU SCH ×4 (07:49→21:47)
--- NOTE | 2021-07-09 08:25 | PDOC ---
Exam Note: Bharat Note: Late entry for 07/08/2021. Please also refer to the separate dictated note~for this date of service dictated separately.~Patient seen individually. Discussed the patient with Nursing staff reviewed the chart.~Reviewed interim history and current functioning. Reviewed vital signs,~Labs/ Radiology~and current medic ations noted below. Continue current treatment with the changes noted in the dictated addendum note Assessment: Vital Signs/I&O: Vital Signs Date Time Temp Pulse Resp B/P (MAP) Pulse Ox O2 Delivery O2 Flow Rate FiO2 07/09/21 07:48 63 102/67 07/09/21 05:36 97.7 20 100 2.0 07/07/21 15:27 Room Air l I & O 07/08/21 07/08/21 07/09/21 15:00 23:00 07:00 Intake Total 600 ml 480 ml Balance 600 ml 480 ml Labs: Laboratory Tests Test 07/08/21 15:06 Ammonia 34 mcmol/L (11-34) Current Medications: I have reviewed the current psychotropics carefully including drug interactions. Risk benefit ratio favors no change other than as noted in my dictated progress note. Diagnosis: Problems: (1) Anxiety disorder, unspecified (2) Bipolar disorder, current episode mixed, severe, with psychotic features (3) Major depressive disorder in partial remission CORY MARAVILLA MD Jul 09, 2021 08:25
--- NOTE | 2021-07-09 13:02 | TX PLAN ---
Interdisciplinary Tx Plan Admission Information Jun 23, 2021 at 15:49 Legal Status (on Admission): Voluntary DPOA/Guardian Name: Johanny Gonzalez Contact Other Contact Name: IVELISSE Richter Other Contact Verified Code Status: Full Code Allergies: Coded Allergies: adhesive tape (Verified Allergy, Severe, 06/23/21) aripiprazole (Verified Allergy, Mild, 06/23/21) weight gain sotalol (Verified Allergy, Mild, Diarrhea, 06/23/21) carbamazepine (Verified Allergy, Unknown, 06/23/21) escitalopram (Verified Allergy, Unknown, 06/23/21) paroxetine (Verified Allergy, Unknown, 06/23/21) phenytoin (Verified Allergy, Unknown, 06/23/21) primidone (Verified Allergy, Unknown, 06/23/21) sertraline (Verified Allergy, Unknown, 06/23/21) Diagnoses Primary Diagnosis: (1) Bipolar disorder, current episode mixed, severe, with psychotic features (2) Anxiety disorder, unspecified (3) Impulse control disorder, unspecified Reasons for Admission: Delusions, Agitated, Sig. Change Sleep, Anxiety/Panic, Hallucinations, Suspicious/paranoid, Confusion/Disoriented Problem in Patient's Words: Per pt she has a history of chroinc pain related to a previous brain tumor. She has a pain pump that she wonders if she had previously been given the proper dose of pain medications as she has often felt like she was in a fog and didn't know where she was at. Pt and Victorina MENDOZA,have discussed concerns with ammonia levels. Additional Admission Comments: Per intake record, pt showing agitation, anxiety, confusion/disorientation, psychosis, delusions of staff trying to kill her, hallucinations of seeing bodies, and refusing cares. Problems Active Problems: Confusion, feels like in a fog, anxiety Inactive Problems: Pt is not currently describing hallucinations, delusions, or paranoia. However, these symptoms will continue to be assessed and monitored. Pt has not, yet, displayed agitation, but this, too, will be assessed and monitored. Pt Strengths/Limitations Ability for [place]: Poor Cognitive Functioning/Ability: Fair Communication Skills/Ability: Good Financial Resources: Good Insight/Judgement: Fair Intellectual Ability: Good Physical Health: Poor Social Skills: Fair Stability in Family: Fair Stability in School/Work: Good Verbal Skills: Good Discharge Criteria Discharge Criteria: No need for close observ., OP monitor medical prob, Adequate arrangements @DC, Adequate self-care, Verbal commit med comply, Improved behavior, Improved mood/thought Other Discharge Comments: None at this time. Preliminary Discharge Plan Preliminary DC Plan: Current Living Arrange. 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 Initial D/C Plan Pt plan is to return to [facility] once stable. Identified Discharge Needs: None known at this time. Currently Utilized Resources Currently Utilized Resources/P: PCP through [facility]-Dr. Sabino WILSON-Victorina Gonzalez Referrals Community Resources: None at this time. Identified Problems/Hx/Goals Objectives/Short-Term Goals Short Term Goals: Control abnormal behavior, Dec. Anxiety/Panic, Dec. Hallucination/Delus, Dec. Symp. Depression, Medication Stabilization, Monitor Med Effects, Prevent Deterioration, Promote Coping Skill Short Term Goals in Patient's: Would like to feel less confused and like I'm in a fog. Also, would like to be able to enjoy some of the things I used to do. Interventions/Frequency Staff Interventions/Frequency&: Psychiatry to assess pt three times per week for medication management. Nursing to assess behaviors, monitor medications, and complete 15 minute checks daily. Social work to see pt at least two times weekly to aid in return to placement. Activities to encourage pt to participate in group activities daily. 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 Pt states that she had, also, taught at [employer], [employer], and [employer]. Education: Pt graduated high school from [employer] and later graduated college from [employer] with her master's in education. She, also, had previously attended various colleges before graduating from . Community Follow-up PCP Community Provider/Family Inpu: Pt REJI/JOANA, Victorina, participated in treatment team and is aware of pt hospitalization. Victorina is available for further information as needed. Treatment Plan Explained Patient/Welfare Interviewer had this treatment plan explained to him/her as indicated by the signature below and has been given the opportunity to ask questions and make suggestions: Date: Patient/Welfare Interviewer Signature: Status Update Update Pt is eating 80% of her meals and sleeping an average of 6.5 to 7 hours. Pt continues to be pleasant on the unit. While pt has had some pockets of confusion, she is pleasant and cooperative. Most of the time she is A/O X 4. She spend quite a bit of time in her room, but has increasingly become more and more engaged in group participation. She is pleasant with staff and other pts. Pt had been treated for a UTI, but another culture is pending. Her ammonia level is currently in normal range at 34 and is on the cusp of being out of range. This is something that will need to be monitored ongoing as outpatient. Pt is on O2 2L NC. Pt will return to [facility] at time of discharge. SELINA DICKENS Jul 09, 2021 13:01
[2021-07-09 15:24] VITALS: BP 119/81
[2021-07-09] MEDS: PATCH REMOVAL. MC SCH (21:00)
--- NOTE | 2021-07-09 21:24 | PDOC ---
Exam Note: Bharat Note: Please also refer to the separate dictated note~for this date of service dictated separately.~Patient seen individually. Discussed the patient with Nursing staff reviewed the chart.~Reviewed interim history and current functioning. Reviewed vital signs,~Labs/ Radiology~and current medications noted below. Continue current treatment with the changes noted in the dictated addendum note Assessment: Vital Signs/I&O: Vital Signs Date Time Temp Pulse Resp B/P (MAP) Pulse Ox O2 Delivery O2 Flow Rate FiO2 07/09/21 15:24 97.6 62 16 119/81 (94) 93 Room Air 07/09/21 05:36 2.0 I & O 07/08/21 07/08/21 07/09/21 15:00 23:00 07:00 Intake Total 600 ml 480 ml Balance 600 ml 480 ml Current Medications: Meds: Current Medications Medications (Trade) Dose Ordered Sig/Anthony Route PRN Reason Start Time Stop Time Status Last Admin Dose Admin Acetaminophen (Tylenol) 650 mg PRN Q6HRS PRN PO MILD PAIN / TEMP > 100.3'F 06/23/21 16:30 06/24/21 20:44 Multi-Ingredient Ointment (Analgesic [place]) 1 [place] PRN QID PRN TP MUSCLE PAIN 06/23/21 16:30 Al Hydroxide/Mg Hydroxide (Mylanta Plus Xs) 15 ml PRN AFTMEALHC PRN PO DYSPEPSIA 06/23/21 16:30 Magnesium Hydroxide (Milk Of Magnesia) 2,400 mg PRN QHS PRN PO CONSTIPATION 06/23/21 16:30 07/07/21 05:26 Apixaban (Eliquis) 5 mg BID PO 06/23/21 21:00 07/09/21 07:47 Aripiprazole (Abilify) 7.5 mg DAILY PO 06/24/21 09:00 07/09/21 07:47 Aspirin (Aspirin Chewable) 81 mg DAILY PO 06/24/21 09:00 07/09/21 07:48 Duloxetine HCl (Cymbalta) 90 mg DAILY PO 06/24/21 09:00 07/09/21 07:46 Albuterol/ Ipratropium (Combivent Respimat 20-100 Mcg) 1 puff RTQID INH 06/23/21 20:00 07/04/21 10:23 DC 10/19/21 19:56 Levothyroxine Sodium (Synthroid) 25 mcg DAILY06 PO 06/24/21 06:00 07/09/21 06:00 Lidocaine (Lidoderm) 1 patch DAILY TP 06/24/21 09:00 07/09/21 07:49 Metoprolol Succinate (Toprol Xl) 25 mg DAILY PO 06/24/21 09:00 07/09/21 07:48 Pantoprazole Sodium (Protonix) 40 mg DAILY PO 06/24/21 09:00 07/09/21 07:48 Polyethylene Glycol (miraLAX) 17 gm DAILY PO 06/24/21 09:00 07/09/21 07:49 Quetiapine Fumarate (SEROquel) 50 mg PRN QHS PRN PO sleep 06/23/21 17:00 07/04/21 01:42 Sennosides (Senna) 8.6 mg DAILY PO 06/24/21 09:00 07/09/21 07:47 Sodium Chloride (Saline Mist Nasal) 1 [place] PRN Q4HRS PRN NS nasal dryness 06/23/21 17:00 Trazodone HCl (Desyrel) 50 mg HS PO 06/23/21 21:00 07/08/21 19:32 Divalproex Sodium (Depakote) 1,000 mg BID PO 06/23/21 21:00 07/09/21 07:47 Fluticasone Propionate (Flonase) 2 spray DAILY NS 06/24/21 09:00 07/09/21 07:49 Ketorolac Tromethamine (Acular) 1 drop QID OU 06/23/21 21:00 07/09/21 17:16 Lactulose (Lactulose) 30 gm BID PO 06/23/21 21:00 06/25/21 11:41 DC 06/25/21 08:42 Cetirizine HCl (ZyrTEC) 10 mg DAILY PO 06/24/21 09:00 07/09/21 07:48 Meclizine HCl (Antivert) 25 mg PRN Q4HRS PRN PO vertigo 06/23/21 17:45 Influenza Virus Vaccine Quadrival (Flulaval Quad [id number] Syringe) 0.5 ml ONCE ONCE VAX IM 06/24/21 09:00 06/24/21 09:01 DC 06/24/21 09:38 Miscellaneous (Lidoderm Patch Removal) 1 ea QHS MC 06/23/21 21:00 07/08/21 19:33 Cephalexin HCl (Keflex) 500 mg TID PO 06/25/21 14:00 06/30/21 10:00 DC 06/30/21 08:45 Albuterol/ Ipratropium (Combivent Respimat 20-100 Mcg) 1 puff PRN QID PRN INH SOA 07/04/21 10:15 Vitamin D (Vitamin D3) 1,000 unit DAILY PO 07/04/21 11:15 07/09/21 07:47 I have reviewed the current psychotropics carefully including drug interactions. Risk benefit ratio favors no change other than as noted in my dictated progress note. Diagnosis: Problems: (1) Impulse control disorder, unspecified (2) Anxiety disorder, unspecified (3) Bipolar disorder, current episode mixed, severe, with psychotic features (4) Major depressive disorder in partial remission CORY MARAVILLA MD Jul 09, 2021 21:24
[2021-07-09] MEDS: traZODone 50 MG TABLET. PO SCH (21:48)
[2021-07-10] MEDS ORDERED: ACET325T21 PO (02:19)
[2021-07-10] MEDS ORDERED: ARIP5TAB13 PO (02:21)
[2021-07-10] MEDS ORDERED: CHOL10004 PO (02:25)
[2021-07-10] MEDS ORDERED: MAG-19 PO (02:27)
[2021-07-10] MEDS ORDERED: MAGN24003 PO (02:33)
[2021-07-10] MEDS ORDERED: TROL90CR TP (02:35)
[2021-07-10] MEDS: LEVOTHYROXINE 25 MCG TABLET. PO SCH (05:55)
[2021-07-10 06:23] VITALS: BP 97/63
[2021-07-10] MEDS: CHOLECALCIFEROL (VITAMIN D3) 1,000 UNIT TABLET PO SCH (08:19)
[2021-07-10 08:20] VITALS: BP 97/63
[2021-07-10] MEDS: KETOROLAC TROMETHAMINE 0.5% OPHTH SOLUTION BOTTLE. OU SCH (08:20)
[2021-07-10] MEDS: METOPROLOL SUCC 24HR ER 25 MG TAB.ER.24H. PO SCH (08:20)
[2021-07-10] MEDS: DULoxetine HCL 30 MG CAPSULE.DR PO SCH (08:20)
[2021-07-10] MEDS: ASPIRIN CHEWABLE 81 MG TABLET. PO SCH (08:20)
[2021-07-10] MEDS: CETIRIZINE HCL 10 MG TABLET PO SCH (08:21)
[2021-07-10] MEDS: DIVALPROEX SODIUM 250 MG TABLET.DR. PO SCH (08:21)
[2021-07-10] MEDS: APIXABAN 5 MG TABLET. PO SCH (08:21)
[2021-07-10] MEDS: SENNOSIDES 8.6 MG TABLET PO SCH (08:21)
[2021-07-10] MEDS: PANTOPRAZOLE 40 MG TABLET. PO SCH (08:21)
[2021-07-10] MEDS: FLUTICASONE 50MCG/NASAL SPRAY 16GM BOTTLE. NS SCH (08:21)
[2021-07-10] MEDS: ARIPiprazole 5 MG TABLET PO SCH (08:21)
[2021-07-10] MEDS: LIDOCAINE (700MG/PATCH) PATCH. TP SCH (08:25)
[2021-07-10] MEDS: POLYETHYLENE GLYCOL 3350 17 GM PACKET. PO SCH (09:00)
--- NOTE | 2021-07-10 22:02 | PDOC ---
Exam Note: Bharat Note: Please also refer to the separate dictated note~for this date of service dictated separately.~Patient seen individually. Discussed the patient with Nursing staff reviewed the chart.~Reviewed interim history and current functioning. Reviewed vital signs,~Labs/ Radiology~and current medications noted below. Continue current treatment with the changes noted in the dictated addendum note Assessment: Vital Signs/I&O: Vital Signs Date Time Temp Pulse Resp B/P (MAP) Pulse Ox O2 Delivery O2 Flow Rate FiO2 07/10/21 08:20 76 97/63 07/10/21 06:23 97.4 18 99 Room Air 07/09/21 05:36 2.0 I & O 07/09/21 07/09/21 07/10/21 15:00 23:00 07:00 Intake Total 600 ml 360 ml Balance 600 ml 360 ml Current Medications: Meds: Current Medications Medications (Trade) Dose Ordered Sig/Anthony Route PRN Reason Start Time Stop Time Status Last Admin Dose Admin Acetaminophen (Tylenol) 650 mg PRN Q6HRS PRN PO MILD PAIN / TEMP > 100.3'F 06/23/21 16:30 07/10/21 12:58 DC 06/24/21 20:44 Multi-Ingredient Ointment (Analgesic [place]) 1 [place] PRN QID PRN TP MUSCLE PAIN 06/23/21 16:30 07/10/21 12:58 DC Al Hydroxide/Mg Hydroxide (Mylanta Plus Xs) 15 ml PRN AFTMEALHC PRN PO DYSPEPSIA 06/23/21 16:30 07/10/21 12:58 DC Magnesium Hydroxide (Milk Of Magnesia) 2,400 mg PRN QHS PRN PO CONSTIPATION 06/23/21 16:30 07/10/21 12:58 DC 07/07/21 05:26 Apixaban (Eliquis) 5 mg BID PO 06/23/21 21:00 07/10/21 12:58 DC 07/10/21 08:21 Aripiprazole (Abilify) 7.5 mg DAILY PO 06/24/21 09:00 07/10/21 12:58 DC 07/10/21 08:21 Aspirin (Aspirin Chewable) 81 mg DAILY PO 06/24/21 09:00 07/10/21 12:58 DC 07/10/21 08:20 Duloxetine HCl (Cymbalta) 90 mg DAILY PO 06/24/21 09:00 07/10/21 12:58 DC 07/10/21 08:20 Albuterol/ Ipratropium (Combivent Respimat 20-100 Mcg) 1 puff RTQID INH 06/23/21 20:00 07/04/21 10:23 DC 06/30/21 19:56 Levothyroxine Sodium (Synthroid) 25 mcg DAILY06 PO 06/24/21 06:00 07/10/21 12:58 DC 07/10/21 05:55 Lidocaine (Lidoderm) 1 patch DAILY TP 06/24/21 09:00 07/10/21 12:58 DC 07/10/21 08:25 Metoprolol Succinate (Toprol Xl) 25 mg DAILY PO 06/24/21 09:00 07/10/21 12:58 DC 07/10/21 08:20 Pantoprazole Sodium (Protonix) 40 mg DAILY PO 06/24/21 09:00 07/10/21 12:58 DC 07/10/21 08:21 Polyethylene Glycol (miraLAX) 17 gm DAILY PO 06/24/21 09:00 07/10/21 12:58 DC 07/09/21 07:49 Quetiapine Fumarate (SEROquel) 50 mg PRN QHS PRN PO sleep 06/23/21 17:00 07/10/21 12:58 DC 07/04/21 01:42 Sennosides (Senna) 8.6 mg DAILY PO 06/24/21 09:00 07/10/21 12:58 DC 07/10/21 08:21 Sodium Chloride (Saline Mist Nasal) 1 [place] PRN Q4HRS PRN NS nasal dryness 06/23/21 17:00 07/10/21 12:58 DC Trazodone HCl (Desyrel) 50 mg HS PO 06/23/21 21:00 07/10/21 12:58 DC 07/09/21 21:48 Divalproex Sodium (Depakote) 1,000 mg BID PO 06/23/21 21:00 07/10/21 12:58 DC 07/10/21 08:21 Fluticasone Propionate (Flonase) 2 spray DAILY NS 06/24/21 09:00 07/10/21 12:58 DC 07/10/21 08:21 Ketorolac Tromethamine (Acular) 1 drop QID OU 06/23/21 21:00 07/10/21 12:58 DC 07/10/21 08:20 Lactulose (Lactulose) 30 gm BID PO 06/23/21 21:00 06/25/21 11:41 DC 06/25/21 08:42 Cetirizine HCl (ZyrTEC) 10 mg DAILY PO 06/24/21 09:00 07/10/21 12:58 DC 07/10/21 08:21 Meclizine HCl (Antivert) 25 mg PRN Q4HRS PRN PO vertigo 06/23/21 17:45 07/10/21 12:58 DC Influenza Virus Vaccine Quadrival (Flulaval Quad Syringe) 0.5 ml ONCE ONCE VAX IM 06/24/21 09:00 06/24/21 09:01 DC 06/24/21 09:38 Miscellaneous (Lidoderm Patch Removal) 1 ea QHS MC 06/23/21 21:00 07/10/21 12:58 DC 07/09/21 21:00 Cephalexin HCl (Keflex) 500 mg TID PO 06/25/21 14:00 06/30/21 10:00 DC 06/30/21 08:45 Albuterol/ Ipratropium (Combivent Respimat 20-100 Mcg) 1 puff PRN QID PRN INH SOA 07/04/21 10:15 07/10/21 12:58 DC Vitamin D (Vitamin D3) 1,000 unit DAILY PO 07/04/21 11:15 07/10/21 12:58 DC 07/10/21 08:19 I have reviewed the current psychotropics carefully including drug interactions. Risk benefit ratio favors no change other than as noted in my dictated progress note. Diagnosis: Problems: (1) Impulse control disorder, unspecified (2) Anxiety disorder, unspecified (3) Major depressive disorder in partial remission (4) Mild cognitive impairment CORY MARAVILLA MD Jul 10, 2021 22:02
--- NOTE | 2021-07-12 09:52 | PDOC ---
Exam Note: Bharat Note: This note is a late entry for 07/08/2021 covers elements not covered in my initial note. Subjective: The patient was seen individually in the evening of 07/08/2021 with Yolanda QUARLES, discussed and reviewed the chart. The patient slept 7 hours previous night. She is compliant with medications. She spends much time in her room, seems a little more confused after lunch and we will check UA to make sure there is not a recurrence of UTI to account for this. I met with her in her room. She had many questions about discharge plans and we addressed these. Review of Systems: Ambulation impaired with walker. No CV, , pulmonary, eye, ENT system symptoms on review. Mental Status Exam: The patient is reasonably oriented though she gets a little confused, forgetful for short term events at times as I questioned her. Speech coherent. Abstraction fair. Computation somewhat impaired. Language function intact. She was smiling otherwise, appropriate. Laboratory Data: Reviewed. 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 Anxiety disorder unspecified. Plan: Continue psychotropics from initial note. We will repeat UA to rule out UTI. Assessment: Vital Signs/I&O: Vital Signs Date Time Temp Pulse Resp B/P (MAP) Pulse Ox O2 Delivery O2 Flow Rate FiO2 07/10/21 08:20 76 97/63 07/10/21 06:23 97.4 18 99 Room Air 07/09/21 05:36 2.0 Current Medications: Meds: Current Medications Medications (Trade) Dose Ordered Sig/Anthony Route PRN Reason Start Time Stop Time Status Last Admin Dose Admin Acetaminophen (Tylenol) 650 mg PRN Q6HRS PRN PO MILD PAIN / TEMP > 100.3'F 06/23/21 16:30 07/10/21 12:58 DC 06/24/21 20:44 Multi-Ingredient Ointment (Analgesic [place]) 1 [place] PRN QID PRN TP MUSCLE PAIN 06/23/21 16:30 07/10/21 12:58 DC Al Hydroxide/Mg Hydroxide (Mylanta Plus Xs) 15 ml PRN AFTMEALHC PRN PO DYSPEPSIA 06/23/21 16:30 07/10/21 12:58 DC Magnesium Hydroxide (Milk Of Magnesia) 2,400 mg PRN QHS PRN PO CONSTIPATION 06/23/21 16:30 07/10/21 12:58 DC 07/07/21 05:26 Apixaban (Eliquis) 5 mg BID PO 06/23/21 21:00 07/10/21 12:58 DC 07/10/21 08:21 Aripiprazole (Abilify) 7.5 mg DAILY PO 06/24/21 09:00 07/10/21 12:58 DC 07/10/21 08:21 Aspirin (Aspirin Chewable) 81 mg DAILY PO 06/24/21 09:00 07/10/21 12:58 DC 07/10/21 08:20 Duloxetine HCl (Cymbalta) 90 mg DAILY PO 06/24/21 09:00 07/10/21 12:58 DC 07/10/21 08:20 Albuterol/ Ipratropium (Combivent Respimat 20-100 Mcg) 1 puff RTQID INH 06/23/21 20:00 07/04/21 10:23 DC 06/30/21 19:56 Levothyroxine Sodium (Synthroid) 25 mcg DAILY06 PO 06/24/21 06:00 07/10/21 12:58 DC 07/10/21 05:55 Lidocaine (Lidoderm) 1 patch DAILY TP 06/24/21 09:00 07/10/21 12:58 DC 07/10/21 08:25 Metoprolol Succinate (Toprol Xl) 25 mg DAILY PO 06/24/21 09:00 07/10/21 12:58 DC 07/10/21 08:20 Pantoprazole Sodium (Protonix) 40 mg DAILY PO 06/24/21 09:00 07/10/21 12:58 DC 07/10/21 08:21 Polyethylene Glycol (miraLAX) 17 gm DAILY PO 06/24/21 09:00 07/10/21 12:58 DC 07/09/21 07:49 Quetiapine Fumarate (SEROquel) 50 mg PRN QHS PRN PO sleep 06/23/21 17:00 07/10/21 12:58 DC 07/04/21 01:42 Sennosides (Senna) 8.6 mg DAILY PO 06/24/21 09:00 07/10/21 12:58 DC 07/10/21 08:21 Sodium Chloride (Saline Mist Nasal) 1 [place] PRN Q4HRS PRN NS nasal dryness 06/23/21 17:00 07/10/21 12:58 DC Trazodone HCl (Desyrel) 50 mg HS PO 06/23/21 21:00 07/10/21 12:58 DC 07/09/21 21:48 Divalproex Sodium (Depakote) 1,000 mg BID PO 06/23/21 21:00 07/10/21 12:58 DC 07/10/21 08:21 Fluticasone Propionate (Flonase) 2 spray DAILY NS 06/24/21 09:00 07/10/21 12:58 DC 07/10/21 08:21 Ketorolac Tromethamine (Acular) 1 drop QID OU 06/23/21 21:00 07/10/21 12:58 DC 07/10/21 08:20 Lactulose (Lactulose) 30 gm BID PO 06/23/21 21:00 06/25/21 11:41 DC 06/25/21 08:42 Cetirizine HCl (ZyrTEC) 10 mg DAILY PO 06/24/21 09:00 07/10/21 12:58 DC 07/10/21 08:21 Meclizine HCl (Antivert) 25 mg PRN Q4HRS PRN PO vertigo 06/23/21 17:45 07/10/21 12:58 DC Influenza Virus Vaccine Quadrival (Flulaval Quad [id number] Syringe) 0.5 ml ONCE ONCE VAX IM 06/24/21 09:00 06/24/21 09:01 DC 06/24/21 09:38 Miscellaneous (Lidoderm Patch Removal) 1 ea QHS MC 06/23/21 21:00 07/10/21 12:58 DC 07/09/21 21:00 Cephalexin HCl (Keflex) 500 mg TID PO 06/25/21 14:00 06/30/21 10:00 DC 06/30/21 08:45 Albuterol/ Ipratropium (Combivent Respimat 20-100 Mcg) 1 puff PRN QID PRN INH SOA 07/04/21 10:15 07/10/21 12:58 DC Vitamin D (Vitamin D3) 1,000 unit DAILY PO 07/04/21 11:15 07/10/21 12:58 DC 07/10/21 08:19 I have reviewed the current psychotropics carefully including drug interactions. Risk benefit ratio favors no change other than as noted in my dictated progress note. Diagnosis: Problems: (1) Impulse control disorder, unspecified (2) Anxiety disorder, unspecified (3) Major depressive disorder in partial remission (4) Mild cognitive impairment CORY MARAVILLA MD Jul 12, 2021 09:52
--- NOTE | 2021-07-12 10:08 | PDOC ---
Exam Note: Bharat Note: This note is a late entry for 07/09/2021 covers elements not covered in my initial note. Subjective: The patient was reviewed at treatment team meeting individually in the morning on 07/09/2021 with Maya Lopez, Vibha Alvarenga, and Sri Humphrey (social work coordinator), Dixie, activity therapy and Tony QUARLES, discussed and reviewed the chart. The patient slept 6 hours previous night. Sleeping average 6-1/2 hours. Appetite is 80%. Reviewed the patients history, interim progress. UA has reflex to culture. She was also seen individually in the evening. Patient appears confused at times. No behaviors noted. She attended 5 groups in the past week. Ammonia has increased slightly, somewhat borderline elevated but we will continue to monitor this. Review of Systems: Ambulation impaired with walker. No CV, , pulmonary, eye, ENT system symptoms on review. Mental Status Exam: The patient is oriented reasonably. Speech coherent has some latency. Abstraction fair. Computation impaired. Language function intact. Attention span short. Mood and affect improved. Laboratory Data: Reviewed. 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 Anxiety disorder unspecified. Plan: Continue psychotropics from initial note. Consider transition to a lower level of care on 07/10. Assessment: Vital Signs/I&O: Vital Signs Date Time Temp Pulse Resp B/P (MAP) Pulse Ox O2 Delivery O2 Flow Rate FiO2 07/10/21 08:20 76 97/63 07/10/21 06:23 97.4 18 99 Room Air 07/09/21 05:36 2.0 Current Medications: Meds: Current Medications Medications (Trade) Dose Ordered Sig/Anthony Route PRN Reason Start Time Stop Time Status Last Admin Dose Admin Acetaminophen (Tylenol) 650 mg PRN Q6HRS PRN PO MILD PAIN / TEMP > 100.3'F 06/23/21 16:30 07/10/21 12:58 DC 06/24/21 20:44 Multi-Ingredient Ointment (Analgesic Hext) 1 [place] PRN QID PRN TP MUSCLE PAIN 06/23/21 16:30 07/10/21 12:58 DC Al Hydroxide/Mg Hydroxide (Mylanta Plus Xs) 15 ml PRN AFTMEALHC PRN PO DYSPEPSIA 06/23/21 16:30 07/10/21 12:58 DC Magnesium Hydroxide (Milk Of Magnesia) 2,400 mg PRN QHS PRN PO CONSTIPATION 06/23/21 16:30 07/10/21 12:58 DC 07/07/21 05:26 Apixaban (Eliquis) 5 mg BID PO 06/23/21 21:00 07/10/21 12:58 DC 07/10/21 08:21 Aripiprazole (Abilify) 7.5 mg DAILY PO 06/24/21 09:00 07/10/21 12:58 DC 07/10/21 08:21 Aspirin (Aspirin Chewable) 81 mg DAILY PO 06/24/21 09:00 07/10/21 12:58 DC 07/10/21 08:20 Duloxetine HCl (Cymbalta) 90 mg DAILY PO 06/24/21 09:00 07/10/21 12:58 DC 07/10/21 08:20 Albuterol/ Ipratropium (Combivent Respimat 20-100 Mcg) 1 puff RTQID INH 06/23/21 20:00 07/04/21 10:23 DC 06/30/21 19:56 Levothyroxine Sodium (Synthroid) 25 mcg DAILY06 PO 06/24/21 06:00 07/10/21 12:58 DC 07/10/21 05:55 Lidocaine (Lidoderm) 1 patch DAILY TP 06/24/21 09:00 07/10/21 12:58 DC 07/10/21 08:25 Metoprolol Succinate (Toprol Xl) 25 mg DAILY PO 06/24/21 09:00 07/10/21 12:58 DC 07/10/21 08:20 Pantoprazole Sodium (Protonix) 40 mg DAILY PO 06/24/21 09:00 07/10/21 12:58 DC 07/10/21 08:21 Polyethylene Glycol (miraLAX) 17 gm DAILY PO 06/24/21 09:00 07/10/21 12:58 DC 07/09/21 07:49 Quetiapine Fumarate (SEROquel) 50 mg PRN QHS PRN PO sleep 06/23/21 17:00 07/10/21 12:58 DC 07/04/21 01:42 Sennosides (Senna) 8.6 mg DAILY PO 06/24/21 09:00 07/10/21 12:58 DC 07/10/21 08:21 Sodium Chloride (Saline Mist Nasal) 1 [place] PRN Q4HRS PRN NS nasal dryness 06/23/21 17:00 07/10/21 12:58 DC Trazodone HCl (Desyrel) 50 mg HS PO 06/23/21 21:00 07/10/21 12:58 DC 07/09/21 21:48 Divalproex Sodium (Depakote) 1,000 mg BID PO 06/23/21 21:00 07/10/21 12:58 DC 07/10/21 08:21 Fluticasone Propionate (Flonase) 2 spray DAILY NS 06/24/21 09:00 07/10/21 12:58 DC 07/10/21 08:21 Ketorolac Tromethamine (Acular) 1 drop QID OU 06/23/21 21:00 07/10/21 12:58 DC 07/10/21 08:20 Lactulose (Lactulose) 30 gm BID PO 06/23/21 21:00 06/25/21 11:41 DC 06/25/21 08:42 Cetirizine HCl (ZyrTEC) 10 mg DAILY PO 06/24/21 09:00 07/10/21 12:58 DC 07/10/21 08:21 Meclizine HCl (Antivert) 25 mg PRN Q4HRS PRN PO vertigo 06/23/21 17:45 07/10/21 12:58 DC Influenza Virus Vaccine Quadrival (Flulaval Quad [id number] Syringe) 0.5 ml ONCE ONCE VAX IM 06/24/21 09:00 06/24/21 09:01 DC 06/24/21 09:38 Miscellaneous (Lidoderm Patch Removal) 1 ea QHS MC 06/23/21 21:00 07/10/21 12:58 DC 07/09/21 21:00 Cephalexin HCl (Keflex) 500 mg TID PO 06/25/21 14:00 06/30/21 10:00 DC 06/30/21 08:45 Albuterol/ Ipratropium (Combivent Respimat 20-100 Mcg) 1 puff PRN QID PRN INH SOA 07/04/21 10:15 07/10/21 12:58 DC Vitamin D (Vitamin D3) 1,000 unit DAILY PO 07/04/21 11:15 07/10/21 12:58 DC 07/10/21 08:19 I have reviewed the current psychotropics carefully including drug interactions. Risk benefit ratio favors no change other than as noted in my dictated progress note. Diagnosis: Problems: (1) Impulse control disorder, unspecified (2) Anxiety disorder, unspecified (3) Major depressive disorder in partial remission (4) Mild cognitive impairment CORY MARAVILLA MD Jul 12, 2021 10:08
--- NOTE | 2021-07-12 14:16 | DS ---
DATE OF DISCHARGE: 07/10/2021 DISCHARGE SUMMARY/PSYCHIATRIC PROGRESS NOTE This is a late entry, date of service 07/10, covers elements not covered in my initial note. REASON FOR ADMISSION: Please refer to the admission history for details. Briefly, the patient is a 71-year-old female referred to us from [facility] from where she was initially referred to [facility], treated for a UTI, but continued to have increased confusion, agitation, visual hallucinations, marked insomnia, was anxious, refusing cares. She was delusional, believed the hospital staff are trying to harm her, was delusional about rape and calling the police. She had failed outpatient psychiatric interventions resulting in this referral. SIGNIFICANT FINDINGS AND CLINICAL COURSE: Following admission, the patient was seen daily individually by myself from a psychiatric standpoint, medical followup with Dr. Goldstein/Dr. York. The patient did complete her course of antibiotics for UTI and gradually her confusion, psychosis appeared to improve. She remained withdrawn, somewhat depressed. Adjustments were made in her psychotropic. She seemed to respond to a combination of Cymbalta 90 mg a day, Seroquel 50 mg at bedtime p.r.n., Depakote delayed release continued at 1000 mg b.i.d. level, was therapeutic, trazodone 50 mg at bedtime, Abilify 7.5 mg a day. There was a question of her diagnosis of bipolar disorder and I obtained fairly detailed records from Dr. Reid and these were reflective of a diagnosis of major depressive disorder rather than bipolar disorder. Gradually, mood appeared to improve. No psychotic symptoms were noted. She still had some short-term memory deficits, but was overall better prior to discharge. REVIEW OF SYSTEMS: Prior to discharge, ambulation impaired with walker. No CV, , pulmonary, eye system symptoms on review. MENTAL STATUS EXAMINATION: Oriented to herself, situation. Speech has some latency coherent. Abstraction fair. Computation impaired. Language function intact. Mood and affect improved. No suicidal or homicidal ideation. FINAL DIAGNOSES: Major depressive disorder, recurrent with psychotic features, in partial remission; anxiety disorder, unspecified; impulse control disorder, unspecified; mild cognitive impairment. DISCHARGE MEDICATIONS: Please refer to the [facility]AD. DISCHARGE INSTRUCTIONS: Outpatient psychiatric and medical followup at the residential. OPAL DR: Simba TID: [id number]
== END 2021-07-10 12:58 | DRG 885 ==
LOC: GEROPSY 15:49
PROVIDERS: ADMIT Psychiatry & Neurology Psychiatry; ATTEND Psychiatry & Neurology Psychiatry
DX: F33.3 Major depressive disorder, recurrent, severe with psychotic symptoms (principal); I50.32 Chronic diastolic (congestive) heart failure; F63.9 Impulse disorder, unspecified; I48.0 Paroxysmal atrial fibrillation; E03.9 Hypothyroidism, unspecified; F41.9 Anxiety disorder, unspecified; G31.84 Mild cognitive impairment of uncertain or unknown etiology; G40.909 Epilepsy, unspecified, not intractable, without status epilepticus; G47.00 Insomnia, unspecified; Z20.822 Contact with and (suspected) exposure to COVID-19; G89.29 Other chronic pain; Z88.8 Allergy status to other drugs, medicaments and biological substances; Z86.73 Personal history of transient ischemic attack (TIA), and cerebral infarction without residual deficits; Z86.711 Personal history of pulmonary embolism; Z85.841 Personal history of malignant neoplasm of brain; Z79.899 Other long term (current) drug therapy; Z79.01 Long term (current) use of anticoagulants
CPT/HCPCS: 36415; 80053; 80061; 80164; 81001; 82140; 82306; 82607; 83036; 83540; 83550; 83735; 84436; 84443; 84480; 85025; 85379; 86592; 87086; 90471; 90686; 93005; 93971; U0003; 97530